=== PATIENT | female | born 1945 | race Caucasian/White ===

== ENCOUNTER → 2016-10-15 | Outpatient (CLI) | payer MEDICARE, MEDICAID ==
[2016-10-15 09:00] LABS: ALT 37 U/L (9-52); AST 35 U/L (14-36); Alkaline Phosphatase 45 U/L (38-126); Anion Gap 9 mmol/L; Blood Urea Nitrogen 16 mg/dL (7-17); Calcium 9.7 mg/dL (8.4-10.2); Carbon Dioxide 29 mmol/L (22-30); Chloride 95 mmol/L (98-107); Cholesterol 132 mg/dL (<200); Glucose 87 mg/dL (74-99); HDL Cholesterol 68 mg/dL (40-60); Non-African American GFR(MDRD) >60 (>60 ml/min/1.73 sqM); Potassium 3.9 mmol/L (3.5-5.1); Sodium 133 mmol/L (137-145); Total Bilirubin 0.7 mg/dL (0.2-1.3); Total Protein 7.1 g/dL (6.3-8.2)
== END | disposition home or self-care (01) ==
LOC: LABWHC1 08:18
PROVIDERS: ATTEND Internal Medicine Interventional Cardiology
DX: E78.2 Mixed hyperlipidemia (principal)
CPT/HCPCS: 36415; 80053; 80061

== ENCOUNTER → 2017-10-15 | Outpatient (CLI) | payer MEDICARE, MEDICAID ==
[2017-10-15 09:10] LABS: ALT 34 U/L (9-52); AST 38 U/L (14-36); Cholesterol 140 mg/dL (<200); Creatine Kinase 123 U/L (30-135); HDL Cholesterol 64 mg/dL (40-60); LDL Cholesterol,Calculated 65 mg/dL (0-99); Triglycerides 56 mg/dL (<150)
== END | disposition home or self-care (01) ==
LOC: LABWHC1 08:33
PROVIDERS: ATTEND Internal Medicine Interventional Cardiology
DX: E78.2 Mixed hyperlipidemia (principal)
CPT/HCPCS: 36415; 80061; 82550; 84450; 84460

== ENCOUNTER → 2017-12-23 | Outpatient (CLI) | payer MEDICAID, MEDICARE ==
--- NOTE | 2017-12-23 10:05 | BD ---
EXAMINATION TYPE: Axial Bone Density DATE OF EXAM: 12/23/2017 COMPARISON: Prior DEXA bone scan June 27, 2010 CLINICAL HISTORY: Postmenopausal female Height: 5 FT 3 1/4 IN Weight: 136 FRAX RISK QUESTIONS: History of Fracture in Adulthood: YES RISK FACTORS HISTORY OF: Family History of Osteoporosis: YES Active: YES Postmenopausal woman: TOTAL HYST AGE 57 Take estrogen and/or progesterone medications: TOOK FOR SEVERAL AROUND THE TIME OF HYST , NO LONGER T AKES MEDICATIONS: Additional Medications: BLOOD PRESSURE MEDS, CHOLESTEROL MEDS Additional History: EXAM MEASUREMENTS: Bone mineral densitometry was performed using the [employer] System. Bone mineral density as measured about the Lumbar spine is: ----- L1-L4(G/cm2): 1.031 T Score Values are as follows: ----- L2: -1.7 ----- L3: -1.3 ----- L4: -0.7 ----- L1-L4: -1.2 Bone mineral density has: DECREASED -8.6 % since study of: 2010 Bone mineral density about the R hip (g/cm2): 0.848 Bone mineral density about the L hip (g/cm2): 0.770 T Score values are as follows: -----R Neck: -1.4 -----L Neck: -1.9 -----R Total: -2.2 -----L Total: -2.5 Bone mineral density has: DECREASED -14.8 % since study of: 2010 IMPRESSION: Osteopenia (T Score between -2.5 and -1) in low back and both hips is now present. Bone density decre ased or diminished from prior. There remains slightly increased risk of fracture and the patient may be considered for treatment. Re-Screen 2-5 years. NOTE: T-SCORE=SD OF THE YOUNG ADULT MEAN.
== END | disposition home or self-care (01) ==
LOC: RADBDWWP 07:18
PROVIDERS: ATTEND Internal Medicine
DX: M85.88 Other specified disorders of bone density and structure, other site (principal)
CPT/HCPCS: 77080

== ENCOUNTER → 2018-01-07 | Outpatient (CLI) | payer MEDICARE, MEDICAID ==
--- NOTE | 2018-01-11 11:18 | MM ---
Reason for exam: screening (asymptomatic). Last mammogram was performed 7 years and 6 months ago. History: Patient is postmenopausal. Family history of breast cancer in maternal cousin. Took estrogen for 8 months. Physical Findings: A clinical breast exam by your physician is recommended on an annual basis and results should be correlated with mammographic findings. MG 3D Screening Mammo W/Cad Bilateral CC and MLO view(s) were taken. Prior study comparison: June 27, 2010, bilateral digital screening mammo w/CAD. July 02, 2008, bilateral digital screening mammogram. There are scattered fibroglandular densities. Posterior central asymmetric density on the right MLO view unchanged from 2011. Scattered secretory calcifications. No significant changes when compared with prior studies. ASSESSMENT: Negative, BI-RAD 1 RECOMMENDATION: Routine screening mammogram of both breasts in 1 year.
== END | disposition home or self-care (01) ==
LOC: RADMAMWWP 11:13
PROVIDERS: ATTEND Internal Medicine
DX: Z12.31 Encounter for screening mammogram for malignant neoplasm of breast (principal)
CPT/HCPCS: 77063; 77067

== ENCOUNTER 2018-01-21 11:58 | Day surgery (SDC) | payer MEDICAID, MEDICARE ==
[2018-01-20 10:09] VITALS: BMI 23.0
[~2018-01-21 11:58] MED LIST: LACTATED RINGERS 1,000 ML IV SCH
[2018-01-21 12:40] VITALS: RESP 16; TEMP 98.7
[2018-01-21] MEDS ORDERED: LIDOCAINE 1% 20 ML VIAL (10MG/ML) FOR IV START INTRADERMA ONE (12:40)
[2018-01-21] MEDS ORDERED: PROPOFOL 10 MG/ML 20 ML VIAL IV ONE (13:56)
--- NOTE | 2018-01-21 14:14 | P.PCN ---
Date of Procedure: 01/21/18 Procedure(s) Performed: BRIEF HISTORY: Patient is a 72-year-old pleasant white female scheduled for an elective colonoscopy as a part of screening for colorectal neoplasia. PROCEDURE PERFORMED: Colonoscopy. PREOPERATIVE DIAGNOSIS: Screening for colon cancer. IV sedation per Anesthesia. PROCEDURE: After informed consent was obtained, the patient, was brought into the endoscopy unit. IV sedation was administered by Anesthesia under continuous monitoring. Digital rectal examination was normal. Initially the Olympus CF- 160 flexible video colonoscope was then inserted in the rectum, gradually advanced into the cecum without any difficulty. Careful examination was performed as the scope was gradually being withdrawn. Ileocecal valve and the appendiceal orifice were visualized and appeared normal. Prep was excellent. Mucosa of the cecum, ascending colon, transverse colon, descending colon, sigmoid colon, and rectum appeared normal. Scattered diffuse diverticulosis seen. Retroflexion was performed in the rectum and no lesions were seen. The patient tolerated the procedure well. IMPRESSION: Normal-appearing colon from rectum to cecum with no evidence of colorectal neoplasia. Scattered diffuse diverticulosis. RECOMMENDATIONS: Findings of this examination were discussed with the patient as well as her family. She was advised to have a repeat screening colonoscopy in 10 years.
[2018-01-21 14:18] VITALS: BP 129/66; PULSE 67
== END 2018-01-21 14:59 | disposition home or self-care (01) ==
LOC: ORWHC2ENDO 11:58
PROVIDERS: ATTEND Internal Medicine Gastroenterology
DX: Z12.11 Encounter for screening for malignant neoplasm of colon (principal); K57.30 Diverticulosis of large intestine without perforation or abscess without bleeding; I10 Essential (primary) hypertension; E78.5 Hyperlipidemia, unspecified; Z79.899 Other long term (current) drug therapy; Z91.013 Allergy to seafood
CPT/HCPCS: J2704; G0121

== ENCOUNTER → 2018-01-27 | Outpatient (CLI) | payer MEDICARE, MEDICAID ==
[2018-01-27 10:10] LABS: Basophils % (A) 0 %; Eosinophils # (A) 0.2 k/uL (0-0.7); Eosinophils % (A) 3 %; HCT 36.5 % (34.0-46.0); HGB 12.5 gm/dL (11.4-16.0); Lymphocytes # (A) 1.4 k/uL (1.0-4.8); Lymphocytes % (A) 26 %; MCH 33.5 pg (25.0-35.0); MCHC 34.2 g/dL (31.0-37.0); MCV 97.7 fL (80.0-100.0); Mean Platelet Volume 6.8; Monocytes # (A) 0.4 k/uL (0-1.0); Monocytes % (A) 8 %; Neutrophils # (A) 3.2 k/uL (1.3-7.7); Neutrophils % (A) 60 %; Platelet Count 211 k/uL (150-450); RBC 3.73 m/uL (3.80-5.40); WBC 5.2 k/uL (3.8-10.6)
[2018-01-27 16:02] LABS: ALT 30 U/L (8-44); AST 40 U/L (13-35); Albumin/Globulin Ratio 2.14 (1.20-2.10); Alkaline Phosphatase 66 U/L (41-126); Calcium 9.4 mg/dL (8.7-10.3); Carbon Dioxide 30.8 mmol/L (21.6-31.8); Chloride 93 mmol/L (96-109); Cholesterol 146 mg/dL (0-200); Globulin 2.1 g/dL (2.1-3.7); Glucose 79 mg/dL (70-110); Potassium 3.9 mmol/L (3.5-5.5); Sodium 131 mmol/L (135-145); Total Bilirubin 0.5 mg/dL (0.2-1.2); Total Protein 6.6 g/dL (6.2-8.2); Triglycerides <50.0 mg/dL (0.0-149.0); VLDL Calculation 9.98 mg/dL (5.00-40.00)
[2018-01-27 17:25] LABS: Hemoglobin A1C 5.3 % (4.0-6.0)
== END ==
LOC: LABWHC1 08:29
PROVIDERS: ATTEND Internal Medicine
DX: Z00.01 Encounter for general adult medical examination with abnormal findings (principal)
CPT/HCPCS: 36415; 80053; 80061; 82306; 83036; 84439; 84443; 85025

== ENCOUNTER → 2018-04-28 | Outpatient (CLI) | payer MEDICAID, MEDICARE ==
--- NOTE | 2018-04-28 12:15 | CONS ---
CONSULTATION DATE OF SERVICE: 04/28/2018. This 72-year-old lady has been evaluated in the sleep center for possible obstructive sleep apnea-hypopnea syndrome. HISTORY OF PRESENT ILLNESS/SLEEP-WAKE EVALUATION: Patient usual sleep schedule basically 7 days a week from around 7:30 to 8:15 p.m. until around 4:35 a.m. Usually no problems with falling asleep. No TV in bedroom. Patient sleeps in different position with snoring, awakenings from sleep 3 times with nocturia, dry mouth, sweating, positive history of symptoms of restless legs during the night. In the morning, patient wakes up tired and has episodes of irritability. [place] Sleepiness Scale is 7. She drinks up to 6 caffeinated beverages during the day. Does not take any naps usually. PAST MEDICAL HISTORY: Positive for hypertension, hyperlipidemia. PAST SURGICAL HISTORY: Tonsillectomy, adenoidectomy, total hysterectomy surgery and bladder suspension. MEDICATIONS: Losartan, simvastatin, fenofibrate. SOCIAL HISTORY: Negative for smoking. Alcohol consumption occasional. FAMILY HISTORY: Heart problems, cancer. REVIEW OF SYSTEMS: Awakenings from sleep, sometimes tiredness, sleepiness during the day. PHYSICAL EXAM: During physical exam, lady without distress. VITAL SIGNS: BP 147/77, HR 56, RR 16, height 5 feet 4 inches, weight 133 pounds, body mass index 22.8, temperature 98.2, oxygen saturation at room air 97%. HEENT: PERRLA, EOMI. Oropharynx low position of soft palate, Mallampati 3-4. Neck 12 inches in circumference. NECK: Supple, no JVD. Thyroid is not palpable. LUNGS: Clear to percussion and to auscultation. Good air exchange. No wheezing or rhonchi. HEART: S1, S2 regular. No murmurs, gallops, or rubs. ABDOMEN: Soft and nontender. Bowel sounds are present. No organomegaly appreciated. EXTREMITIES: No clubbing or cyanosis. CLINIC LEAD: Awake, alert, and oriented X3. Cranial nerves 2 to 7 intact. There is no fasciculation or atrophy. noted. No focal deficits observed. IMPRESSION: 1. Snoring. Low position of soft palate. Awakenings from sleep with dry mouth and nocturia. Possible obstructive sleep apnea-hypopnea syndrome. 2. Hypertension. 3. Hyperlipidemia. 4. Status post tonsillectomy and adenoidectomy. 5. Status post total hysterectomy. 6. Status post bladder suspension. PLAN: 1. Polysomnography for evaluation of patient's breathing during sleep. 2. CPAP/BiPAP titration if sleep study confirms obstructive sleep apnea-hypopnea syndrome. 3. Preferable position during sleep on the side. 4. No driving if patient feels any sleepiness. 5. I will see patient for follow up visit to explain results of testing and following plan. Thank you very much for referring this patient for consultation. Sincerely, Karthik Andesron MD, PhD, FAASM Diplomat of [place] [employer] [place] [employer] Business Excellence Leader of [facility] [place] MMODL / IJN: [id number] /
== END | disposition home or self-care (01) ==
LOC: SLEEP 10:08
PROVIDERS: ATTEND Internal Medicine
DX: R06.83 Snoring (principal); R35.1 Nocturia; M27.8 Other specified diseases of jaws; R68.2 Dry mouth, unspecified; R61 Generalized hyperhidrosis; G25.81 Restless legs syndrome; I10 Essential (primary) hypertension; E78.5 Hyperlipidemia, unspecified; Z90.89 Acquired absence of other organs; Z90.710 Acquired absence of both cervix and uterus; Z98.890 Other specified postprocedural states; Z79.899 Other long term (current) drug therapy
CPT/HCPCS: 99211

== ENCOUNTER → 2019-03-10 | Outpatient (CLI) | payer MEDICARE, MEDICAID ==
--- NOTE | 2019-03-10 15:17 | CT ---
EXAMINATION TYPE: CT sinus wo con DATE OF EXAM: 03/10/2019 COMPARISON: Facial CT July 04, 2012 HISTORY: Chronic sinusitis per order. Facial pain and headaches. CT DLP: 569 mGycm. Automated Exposure Control for Dose Reduction was Utilized. TECHNIQUE: CT scan of the sinuses is performed without contrast, axial images are obtained, coronal r eformatted images are also reviewed. FINDINGS: Minimal mucosal thickening throughout the bilateral maxillary sinuses greater on the left. Moderate to severe mucosal thickening involving the ethmoid sinuses bilaterally with some patchy opac ification most prominently anterior superior aspect. Mild mucosal thickening involving bilateral fron rosanna sinuses with patchy fluid on the right. Mild mucosal thickening anterior central aspect right sph enoid sinus. The ostiomeatal complex is blocked bilaterally on the coronal images. Nasal septum is de viated to left of midline similar to prior. Visualized portion of mastoid air cells show no abnormal opacification. The globes are intact bilate rally. Visualized brain parenchyma shows diffuse cerebral atrophy and chronic small vessel ischemic change with calcified plaque distal internal carotid arteries bilaterally noted. IMPRESSION: Acute on chronic paranasal sinus disease as detailed above. Findings progressed from 201 3 study.
== END | disposition home or self-care (01) ==
LOC: RADCTMAIN 13:59
PROVIDERS: ATTEND Otolaryngology
DX: J32.9 Chronic sinusitis, unspecified (principal)
CPT/HCPCS: 70486

== ENCOUNTER → 2019-04-06 | Outpatient (CLI) | payer MEDICARE, MEDICAID ==
--- NOTE | 2019-04-06 17:29 | PN ---
PROGRESS NOTE DATE OF SERVICE: 04/06/2019 This patient is a 73-year-old lady who has been followed in Sleep Center for treatment of obstructive sleep apnea-hypopnea syndrome. I saw this patient in April of 2018 for possible obstructive sleep apnea-hypopnea syndrome. At that time it was recommended to proceed with a sleep study, but for different issues related to insurance the patient did not have a sleep study at that time. At present she continues to have some problems with sleep. She wakes up from sleep, snores and has awakenings 3 times from sleep with nocturia, dry mouth, sweating, sometimes has symptoms of restless legs. She drinks several cups of coffee a day. [place] Sleepiness Scale is 3. MEDICATIONS: Losartan, simvastatin, fenofibrate. PHYSICAL EXAMINATION: GENERAL: A pleasant patient in no distress. VITAL SIGNS: BP 155/82, HR 54, RR 16, height 5 feet 4 inches, weight 139 pounds, BMI 23.8, temperature 97.2, oxygen saturation at room air 98%. HEENT: PERRLA, EOMI. Evaluation of oropharynx showed tongue protrudes midline. Low position of soft palate. Mallampati III to IV. NECK: Supple. No JVD. Thyroid is not palpable. LUNGS: Clear to percussion and to auscultation. Good air exchange. No wheezing or rhonchi. HEART: S1, S2 regular. No murmurs, gallops or rubs. ABDOMEN: Soft and nontender. Bowel sounds are present. No organomegaly. EXTREMITIES: No clubbing or cyanosis. CARPENTER'S HELPER: Awake, alert, and oriented X3. Cranial nerves 2 to 7 intact. There is no fasciculation or atrophy. noted. No focal deficits observed. IMPRESSION: 1. Snoring, awakenings from sleep with nocturia and dry mouth, low position of soft palate, Mallampati III to IV; possible obstructive sleep apnea-hypopnea syndrome. 2. Hypertension. 3. Hyperlipidemia. 4. Status post tonsillectomy and adenoidectomy. 5. Status post total hysterectomy. 6. Status post bladder suspension. PLAN: 1. Polysomnography for evaluation of patient's breathing during sleep. 2. CPAP titration if sleep study is positive for obstructive sleep apnea-hypopnea syndrome. 3. Sleep hygiene with regular time in bed for at least 7-1/2 to 8 hours. 4. No driving if feeling any sleepiness. Thank you very much for allowing me to participate in the management of your patient. Sincerely, Karthik Anderson MD, PhD, FAASM Diplomat of [place] [employer] [place] [employer] Broadcast Transmitter Operator of [facility] [place] MMCARMINA / KRISTA: [id number] /
== END | disposition home or self-care (01) ==
LOC: SLEEP 16:06
PROVIDERS: ATTEND Internal Medicine
DX: G47.33 Obstructive sleep apnea (adult) (pediatric) (principal); I10 Essential (primary) hypertension; E78.5 Hyperlipidemia, unspecified; Z90.89 Acquired absence of other organs; Z90.710 Acquired absence of both cervix and uterus; Z98.890 Other specified postprocedural states; Z79.899 Other long term (current) drug therapy

== ENCOUNTER 2019-09-09 21:16 | Emergency (ER) | payer OTHER, MEDICARE, MEDICAID ==
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
[2019-09-09 22:25] LABS: Basophils % (A) 0 %; Eosinophils # (A) 0.1 k/uL (0-0.7); Eosinophils % (A) 1 %; HCT 37.8 % (34.0-46.0); HGB 12.7 gm/dL (11.4-16.0); Lymphocytes # (A) 1.6 k/uL (1.0-4.8); Lymphocytes % (A) 17 %; MCHC 33.5 g/dL (31.0-37.0); MCV 95.4 fL (80.0-100.0); Mean Platelet Volume 6.9; Monocytes # (A) 0.5 k/uL (0-1.0); Monocytes % (A) 5 %; Neutrophils # (A) 7.6 k/uL (1.3-7.7); Neutrophils % (A) 76 %; Platelet Count 231 k/uL (150-450); RBC 3.96 m/uL (3.80-5.40); RDW 11.7 % (11.5-15.5)
[2019-09-09 22:35] LABS: Albumin 4.5 g/dL (3.5-5.0); Calcium 9.4 mg/dL (8.4-10.2); Potassium 3.4 mmol/L (3.5-5.1); Total Bilirubin 0.5 mg/dL (0.2-1.3)
[2019-09-09 23:01] LABS: Appearance,Urine Cloudy (Clear); Bacteria,Urine Many /hpf; Bilirubin,Urine Negative (Negative); Blood,Urine Small (Negative); Color,Urine Yellow; Glucose,Urine (UA) Negative (Negative); Ketones,Urine Negative (Negative); Leukocyte Esterase,Urine Large (Negative); Mucus,Urine Rare /hpf; Nitrite,Urine Positive (Negative); Protein,Urine Negative (Negative); RBC,Urine 2 /hpf (0-5); Specific Gravity,Urine 1.013 (1.001-1.035); Squamous Epithelial Cell,Urine 3 /hpf (0-4); Urobilinogen,Urine <2.0 mg/dL (<2.0); WBC,Urine 68 /hpf (0-5)
[2019-09-09 23:14] LABS: INR 0.9 (<1.2); Partial Thromboplastin Time 24.9 sec (22.0-30.0); Prothrombin Time 9.8 sec (9.0-12.0)
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
[2019-09-09 23:57] VITALS: BP 143/68; PULSE 59; RESP 17; TEMP 98.7
[2019-09-10] MEDS ORDERED: CEPHALEXIN 500 MG CAP PO STA (00:01)
== END 2019-09-10 00:34 | disposition home or self-care (01) ==
LOC: EC 21:16
DX: N39.0 Urinary tract infection, site not specified (principal); S00.81XA Abrasion of other part of head, initial encounter; R10.811 Right upper quadrant abdominal tenderness; E87.1 Hypo-osmolality and hyponatremia; R82.998 Other abnormal findings in urine; E78.5 Hyperlipidemia, unspecified; I10 Essential (primary) hypertension; M19.90 Unspecified osteoarthritis, unspecified site; Z79.899 Other long term (current) drug therapy; Z87.891 Personal history of nicotine dependence; Z91.013 Allergy to seafood; V49.40XA Driver injured in collision with unspecified motor vehicles in traffic accident, initial encounter; Y92.410 Unspecified street and highway as the place of occurrence of the external cause; Y93.89 Activity, other specified
CPT/HCPCS: 36415; 93005; 86900; 86901; 80053; 84484; 85025; 85610; 85730; 86850; 81001; 72125; 70450; 71260; 74177; 99284; Q9967

== ENCOUNTER → 2021-01-02 | Outpatient (CLI) | payer MEDICARE, MEDICAID ==
[2021-01-02 19:33] LABS: ALT 16 U/L (8-44); AST 27 U/L (13-35); African American GFR (CKD) 101.1 (60.0-200.0); Albumin 4.5 g/dL (3.8-4.9); Albumin/Globulin Ratio 1.91 (1.60-3.17); Alkaline Phosphatase 61 U/L (41-126); BUN/Creat Ratio 20.22 Ratio (12.00-20.00); Blood Urea Nitrogen 12.7 mg/dL (9.0-27.0); Calcium 9.8 mg/dL (8.7-10.3); Chloride 95 mmol/L (96-109); Chol/HDL Ratio 2.81 Ratio; Globulin 2.4 g/dL (1.6-3.3); Glucose 90 mg/dL (70-110); LDL Cholesterol,Calculated 95.3 mg/dL (0.0-131.0); Non-African American GFR(CKD) 87.2 (60.0-200.0); Potassium 3.9 mmol/L (3.5-5.5); Sodium 136 mmol/L (135-145); Total Protein 6.9 g/dL (6.2-8.2); VLDL Calculation 19.96 mg/dL (5.00-40.00)
== END | disposition home or self-care (01) ==
LOC: LABWHC1 08:29
PROVIDERS: ATTEND Internal Medicine Interventional Cardiology
DX: E78.2 Mixed hyperlipidemia (principal)
CPT/HCPCS: 36415; 80053; 80061

== ENCOUNTER 2021-03-14 17:51 | Inpatient (IN) | payer MEDICARE, MEDICAID ==
[2021-03-14] MEDS ORDERED: HYDROmorphone 0.5 MG/0.5 ML SYRINGE IVP STA (18:05)
[2021-03-14] MEDS ORDERED: DIPH,PERTUS(ACELL)TETVAC-LF 0.5 ML VIAL IM ONE (18:06)
[2021-03-14 18:23] LABS: Basophils # (A) 0.1 k/uL (0-0.2); Basophils % (A) 0 %; Eosinophils # (A) 0.1 k/uL (0-0.7); Eosinophils % (A) 1 %; HGB 12.5 gm/dL (11.4-16.0); Lymphocytes # (A) 1.2 k/uL (1.0-4.8); Lymphocytes % (A) 11 %; MCH 34.8 pg (25.0-35.0); MCHC 35.6 g/dL (31.0-37.0); MCV 97.8 fL (80.0-100.0); Mean Platelet Volume 7.3; Monocytes # (A) 0.5 k/uL (0-1.0); Monocytes % (A) 4 %; Neutrophils # (A) 9.5 k/uL (1.3-7.7); Neutrophils % (A) 83 %; Platelet Count 215 k/uL (150-450); RBC 3.58 m/uL (3.80-5.40); RDW 11.3 % (11.5-15.5); WBC 11.4 k/uL (3.8-10.6)
[2021-03-14 18:32] LABS: ALT 15 U/L (4-34); AST 35 U/L (14-36); African American GFR (CKD) >90 (>60 ml/min/1.73 sqM); Albumin 3.9 g/dL (3.5-5.0); Alkaline Phosphatase 55 U/L (38-126); Anion Gap 9 mmol/L; Blood Urea Nitrogen 12 mg/dL (7-17); Calcium 8.5 mg/dL (8.4-10.2); Carbon Dioxide 25 mmol/L (22-30); Chloride 90 mmol/L (98-107); Glucose 105 mg/dL (74-99); Non-African American GFR(CKD) >90 (>60 ml/min/1.73 sqM); Potassium 3.5 mmol/L (3.5-5.1); Sodium 124 mmol/L (137-145); Total Bilirubin 0.9 mg/dL (0.2-1.3); Total Protein 6.9 g/dL (6.3-8.2)
--- NOTE | 2021-03-14 19:08 | CT ---
EXAMINATION TYPE: CT brain cspine wo con CT DLP: 1220.9 mGycm, Automated exposure control for dose reduction was used. DATE OF EXAM: 03/14/2021 6:52 PM COMPARISON: CT head 09/09/2019. CLINICAL INDICATION:Female, 75 years old with history of trauma; Fall with laceration to head. TECHNIQUE: Brain: Multiple axial CT images of the brain were obtained without IV contrast. Cspine: Axial CT images from the skull base to the inferior aspect of T2 we obtained without intraven ous contrast. Coronal and sagittal reformatted images were also reviewed. FINDINGS: Brain: Extra-axial spaces: No abnormal extra-axial fluid collections. Ventricular system: Within normal limits Cerebral parenchyma: No acute intraparenchymal hemorrhage or mass effect. The adams-white junction is well differentiated. Scattered hypoattenuating areas are seen within the white matter. Cerebellum: Unremarkable. Mass effect: No evidence of midline shift. Intracranial vasculature: Atherosclerotic calcifications of the intracranial vessels. Soft tissues: Normal. Calvarium/osseous structures: No depressed skull fracture. Paranasal sinuses and mastoid air cells: Mild mucosal thickening of the right frontal sinus. Visualized orbits: Orbital contents are intact. Cervical spine: Fracture: None. Osseous structures: Multilevel degenerative disc disease changes with endplate spurring and disc oste ophyte complex's. Vertebral alignment: There is grade 1 anterolisthesis of C4 on C5. Spinal canal/Neural Foramina: No e vidence of significant spinal canal narrowing. No evidence of significant neural foramina narrowing. Neck soft tissues: Prevertebral soft tissues are within normal limits. Other: The airway is patent. The lung apices are clear. IMPRESSION: 1. No acute intracranial process. 2. Nonspecific white matter changes, likely secondary to chronic small vessel ischemic disease. 3. No evidence of cervical spine fracture. 4. Mild multilevel degenerative disc disease.
--- NOTE | 2021-03-14 19:11 | XR ---
EXAMINATION TYPE: XR Hip LT and AP Pelvis DATE OF EXAM: 03/14/2021 6:57 PM INDICATION: Patient age:Female; 75 years old; Reason for study: Trauma; COMPARISON: None. TECHNIQUE: The left hip was examined in the frontal and lateral projections. FINDINGS: Acute fracture through the proximal left femur intertrochanteric region. There is varus def ormity. Possible subtrochanteric extension is seen on one view. Soft tissues are grossly unremarkable . No radiopaque foreign body. IMPRESSION: Acute fracture through the intertrochanteric region of the left femur. Subtrochanteric extension sugg jerome on single view.
--- NOTE | 2021-03-14 19:12 | XR ---
EXAMINATION TYPE: XR chest 1V portable DATE OF EXAM: 03/14/2021 6:57 PM COMPARISON:None TECHNIQUE: Frontal view of the chest. CLINICAL INDICATION:Female, 75 years old with history of trauma; FINDINGS: Lungs/Pleura: There is no evidence of pleural effusion, focal consolidation, or pneumothorax. Pulmonary vascularity: Unremarkable. Heart/mediastinum: Cardiomediastinal silhouette is unremarkable. Musculoskeletal:No acute osseous pathology. IMPRESSION: No acute cardiopulmonary disease/process.
[2021-03-14] MEDS ORDERED: HYDROmorphone 1 MG/ML 1 ML SYRINGE IVP STA (19:18)
--- NOTE | 2021-03-14 19:19 | XR ---
EXAMINATION TYPE: XR shoulder complete LT DATE OF EXAM: 03/14/2021 6:57 PM INDICATION: Patient age:Female; 75 years old; Reason for study: trauma; COMPARISON: Chest radiograph same day TECHNIQUE: The left shoulder was examined in AP, internally rotated and axillary projections. FINDINGS: Fracture through the distal left clavicle with at least 3 fragments felt to be present. There is mild displacement IMPRESSION: Acute left distal clavicle fracture.
[2021-03-14] MEDS ORDERED: SODIUM CHLORIDE 0.9% 500 ML 500 ML IV ONE (19:33)
[2021-03-14 19:34] LABS: Partial Thromboplastin Time 22.9 sec (22.0-30.0)
[2021-03-14] MEDS: SODIUM CHLORIDE 0.9% 1,000 ML IV SCH (19:40)
[2021-03-14] MEDS ORDERED: ONDANSETRON 4 MG/2 ML VIAL IVP PRN (19:48)
[2021-03-14] MEDS ORDERED: HYDROmorphone 0.5 MG/0.5 ML SYRINGE IVP PRN (19:48)
[2021-03-14] MEDS ORDERED: NALOXONE 0.4 MG/ML 1 ML VIAL IV PRN (19:48)
--- NOTE | 2021-03-14 19:56 | ED ---
General Adult HPI - General Chief complaint: Fall Stated complaint: fall Time Seen by Provider: 03/14/21 17:59 Source: patient, EMS, RN notes reviewed, old records reviewed Mode of arrival: EMS Limitations: no limitations - History of Present Illness Initial comments: 75-year-old female presenting status post fall. Patient was in her kitchen making dinner, she tripped and fell onto her left side. There was head injury, injury to the left shoulder and left hip. She was transported by EMS, given fentanyl during transport. Her main complaint is left hip pain. She was unable to ambulate on scene. No chest or abdominal pain. No loss consciousness. No anticoagulation. - Related Data Home Medications Medication Instructions Recorded Confirmed Escitalopram [Lexapro] 10 mg PO HS 03/14/21 03/14/21 LORazepam [Ativan] 0.5 mg PO BID PRN 03/14/21 03/14/21 Losartan/Hydrochlorothiazide 1 tab PO DAILY 03/14/21 03/14/21 [Losartan-Hctz 100-25 mg Tab] Pravastatin Sodium [Pravachol] 20 mg PO DAILY 03/14/21 03/14/21 Allergies Allergy/AdvReac Type Severity Reaction Status Date / Time shellfish derived [Shrimp] Allergy Dyspnea Verified 09/09/19 21:25 Review of Systems ROS Statement: Those systems with pertinent positive or pertinent negative responses have been documented in the HPI. ROS Other: All systems not noted in ROS Statement are negative. Past Medical History Past Medical History: Hyperlipidemia, Hypertension, Osteoarthritis (OA) Additional Past Medical History / Comment(s): VASCULAR HEADACHES , VARICOSE VEINS. History of Any Multi-Drug Resistant Organisms: None Reported Past Surgical History: Adenoidectomy, Bladder Surgery, Bowel Resection, Hysterectomy, Tonsillectomy, Tubal Ligation Additional Past Surgical History / Comment(s): BSO, [facility]OD NEUROMA LEFT FOOT, CYSTOCELE AND RECTOCELE REPAIR, Past Anesthesia/Blood Transfusion Reactions: No Reported Reaction Additional Past Anesthesia/Blood Transfusion Reaction / Comment(s): BLOOD TRANSFUSION WITH NO PROBLEM Past Psychological History: No Psychological Hx Reported Smoking Status: Former smoker, Never smoker Past Alcohol Use History: Rare Past Drug Use History: None Reported - Past Family History Mother Family Medical History: No Reported History General Exam General appearance: alert, in no apparent distress Head exam: Present: normocephalic, other (3 cm laceration to the left parietal scalp) Eye exam: Present: normal appearance, PERRL ENT exam: Present: normal exam Neck exam: Present: normal inspection, other (C-collar placed by EMS). Absent: tenderness Respiratory exam: Present: normal lung sounds bilaterally, respiratory distress Cardiovascular Exam: Present: regular rate, normal rhythm GI/Abdominal exam: Present: soft. Absent: distended, tenderness, guarding Extremities exam: Present: other (Decreased range of motion left hip, shortening of the left lower extremity, distal pulses are intact. Additionally there is some tenderness over the anterior left shoulder, no gross deformity.) Neurological exam: Present: alert, oriented X3, CN II-XII intact. Absent: motor sensory deficit Psychiatric exam: Present: normal affect, normal mood Skin exam: Present: warm, dry Course Vital Signs 03/14/21 03/14/21 17:53 19:34 Temperature 98.1 F Pulse Rate 60 58 L Respiratory 18 18 Rate Blood Pressure 158/73 100/47 O2 Sat by Pulse 95 95 Oximetry EKG Findings - EKG Comments: EKG Findings:: EKG: Normal sinus rhythm no ST segment elevation, rate of 62, [place] interval 166, QRS duration 84, QTC 351 Procedures - Laceration Laceration #1 Consent Obtained: verbal consent Indication: laceration Site: scalp Size (cm): 3 Description: linear Depth: simple, single layer Pre-repair: wound explored, deep structures intact Type of Sutures: other (John) Number of Sutures: 3 Technique: simple, interrupted Patient Tolerated Procedure: well Medical Decision Making - Medical Decision Making 75-year-old female presenting status post mechanical fall with left shoulder pain, left hip pain, and head injury. Patient did have a 3 similar laceration on the left parietal scalp which was repaired with john in the emergency department. Head CT is negative for intracranial hemorrhage or mass effect, CT cervical spine negative for fracture subluxation. X-ray of the left shoulder shows a minimally displaced distal clavicle fracture. X-ray of the pelvis and hip shows a left intertrochanteric fracture. I did discuss case with Segundo betancourt for advanced orthopedics. Patient will be admitted to orthopedics with medicine on consult for preoperative clearance. - Lab Data Result diagrams: 03/14/21 18:17 03/14/21 18:17 Lab Results 03/14/21 03/14/21 03/14/21 Range/Units 18:14 18:17 18:17 WBC 11.4 H (3.8-10.6) k/uL RBC 3.58 L (3.80-5.40) m/uL Hgb 12.5 (11.4-16.0) gm/dL Hct 35.0 (34.0-46.0) % MCV 97.8 (80.0-100.0) fL MCH 34.8 (25.0-35.0) pg MCHC 35.6 (31.0-37.0) g/dL RDW 11.3 L (11.5-15.5) % Plt Count 215 (150-450) k/uL MPV 7.3 Neutrophils % 83 % Lymphocytes % 11 % Monocytes % 4 % Eosinophils % 1 % Basophils % 0 % Neutrophils # 9.5 H (1.3-7.7) k/uL Lymphocytes # 1.2 (1.0-4.8) k/uL Monocytes # 0.5 (0-1.0) k/uL Eosinophils # 0.1 (0-0.7) k/uL Basophils # 0.1 (0-0.2) k/uL PT (9.0-12.0) sec INR (<1.2) APTT (22.0-30.0) sec Sodium 124 L (137-145) mmol/L Potassium 3.5 (3.5-5.1) mmol/L Chloride 90 L (98-107) mmol/L Carbon Dioxide 25 (22-30) mmol/L Anion Gap 9 mmol/L BUN 12 (7-17) mg/dL Creatinine 0.54 (0.52-1.04) mg/dL Est GFR (CKD-EPI)AfAm >90 (>60 ml/min/1.73 sqM) Est GFR (CKD-EPI)NonAf >90 (>60 ml/min/1.73 sqM) Glucose 105 H (74-99) mg/dL Calcium 8.5 (8.4-10.2) mg/dL Total Bilirubin 0.9 (0.2-1.3) mg/dL AST 35 (14-36) U/L ALT 15 (4-34) U/L Alkaline Phosphatase 55 (38-126) U/L Total Protein 6.9 (6.3-8.2) g/dL Albumin 3.9 (3.5-5.0) g/dL Blood Type A Positive Blood Type Recheck A Pos Bld Type Recheck Status No Antibody Screen NEGATIVE Spec Expiration Date 03/17/2021231303/14/21 Range/Units 19:02 WBC (3.8-10.6) k/uL RBC (3.80-5.40) m/uL Hgb (11.4-16.0) gm/dL Hct (34.0-46.0) % MCV (80.0-100.0) fL MCH (25.0-35.0) pg MCHC (31.0-37.0) g/dL RDW (11.5-15.5) % Plt Count (150-450) k/uL MPV Neutrophils % % Lymphocytes % % Monocytes % % Eosinophils % % Basophils % % Neutrophils # (1.3-7.7) k/uL Lymphocytes # (1.0-4.8) k/uL Monocytes # (0-1.0) k/uL Eosinophils # (0-0.7) k/uL Basophils # (0-0.2) k/uL PT 11.0 (9.0-12.0) sec INR 1.0 (<1.2) APTT 22.9 (22.0-30.0) sec Sodium (137-145) mmol/L Potassium (3.5-5.1) mmol/L Chloride (98-107) mmol/L Carbon Dioxide (22-30) mmol/L Anion Gap mmol/L BUN (7-17) mg/dL Creatinine (0.52-1.04) mg/dL Est GFR (CKD-EPI)AfAm (>60 ml/min/1.73 sqM) Est GFR (CKD-EPI)NonAf (>60 ml/min/1.73 sqM) Glucose (74-99) mg/dL Calcium (8.4-10.2) mg/dL Total Bilirubin (0.2-1.3) mg/dL AST (14-36) U/L ALT (4-34) U/L Alkaline Phosphatase (38-126) U/L Total Protein (6.3-8.2) g/dL Albumin (3.5-5.0) g/dL Blood Type Blood Type Recheck Bld Type Recheck Status Antibody Screen Spec Expiration Date Disposition Clinical Impression: Fall, Closed left clavicular fracture, Intertrochanteric fracture of left femur, Laceration of scalp Disposition: ADMITTED IP TO THIS [facility] Condition: Stable Is patient prescribed a controlled substance at d/c from ED?: No Referrals: None,Stated [Primary Care Provider] - 1-2 days Decision to Admit Reason: Admit from EC Decision Date: 03/14/21 Decision Time: 19:56
[2021-03-14] MEDS: HYDROmorphone 1 MG/ML 1 ML SYRINGE IVP PRN (22:26)
[2021-03-14] MEDS ORDERED: ACETAMINOPHEN TAB 500 MG TAB PO PRN (23:40)
[2021-03-14] MEDS ORDERED: traMADol 50 MG TAB PO PRN (23:41)
--- NOTE | 2021-03-15 00:13 | P.CONS ---
History of Present Illness - Reason for Consult Consult date: 03/14/21 - History of Present Illness The patient is a 75-year-old female with a PMH of hypertension, and hyperlipidemia who presented to the emergency room after a fall at home. The patient reports that she was in her kitchen earlier today cooking dinner when she turned to grab something from a [employer] and lost her balance and fell to the ground hitting her head, left shoulder and hip. She denied experiencing chest discomfort, shortness of breath, palpitations, dizziness, or loss of consciousness. She lives at home with her who she immediately called out for who activated EMS. She was unable to ambulate following her fall. At the time of interview, she reported 5 out of 10 left hip pain along with mild left shoulder pain. In the emergency room, a head/cervical spine CT revealed chronic small vessel ischemic disease but otherwise unremarkable EKG showing normal sinus rhythm at 62 bpm but otherwise unremarkable. Chest x-ray was unremarkable with left shoulder x-ray positive for an acute left distal cla vicular fracture. Left hip x-ray revealed an acute fracture of the intertrochanteric region of the left femur. evaluation was remarkable for leukocytosis of 11.4, sodium 124, chloride 90, and glucose 105. Review of systems: Pertinent positives and negatives as discussed in HPI, a complete review of systems was performed and all other systems are negative. Physical examination: General: non toxic, no distress, appears at stated age, normal weight Derm: no unusual rashes/lesions no unusual ecchymoses, warm, dry Head: atraumatic, normocephalic, symmetric Eyes: EOMI, no lid lag, anicteric sclera, pupils equal round reactive to light ENT: Nose and ears atraumatic, no thrush, no pharyngeal erythema Neck: No thyromegaly, no cervical lymphadenopathy, trachea midline, supple Mouth: no lip lesion, mucus membranes moist Cardiovascular: S1S2 reg, no murmur, positive posterior tibial pulse bilateral, no edema, capillary refill less than 2 seconds Lungs: CTA bilateral, no rhonchi, no rales , no accessory muscle use Abdominal: soft, nontender to palpation, no guarding, no appreciable orga nomegaly, normal bowel sounds Ext: no gross muscle atrophy, muscle strength 5 out of 5 in all 4 extremities grossly except left lower extremity due to pain, left hip pain with any passive range of motion, distal left lower extremity strength 5 out of 5 no contractures Neuro: CN II-XI grossly intact, light touch intact all 4 extremities, finger to nose within normal limits, Psych: Alert, oriented, appropriate affect Assessment/plan Preoperative evaluation -METS > 4 -RCRI score: 0; Hu Score 0.2% -The patient reports excellent exercise tolerance as she reports being able to climb several flights of stairs without having to stop. Denied exertional chest discomfort or dyspnea. Denied experiencing palpitations. Denied history of [place] or CHF. -The patient's Sodium is currently 124 which is a relative contraindication for surgery. The hyponatremia may be secondary to SiADH from pain and home diuretic use -Continue with IVFs and monitor BMP -The patient should not undergo non-emergent surgeries until Na > 130 -C/w IVFs -Monitor BMP -Hold off on patient's home diuretic L hip and clavicular fractures -Management including pain control as per the surgery service Chronic conditions: HTN, HLD -Hold off on home diuretic use -C/w statin We appreciate this opportunity to be involved in this patient's care. We will follow the patient with you. For any further questions, please not hesitate to contact the [facility] emergency department inpatient team. Past Medical History Past Medical History: Hyperlipidemia, Hypertension, Osteoarthritis (OA) Additional Past Medical History / Comment(s): VASCULAR HEADACHES , VARICOSE VEINS. History of Any Multi-Drug Resistant Organisms: None Reported Past Surgical History: Adenoidectomy, Bladder Surgery, Bowel Resection, Hysterectomy, Tonsillectomy, Tubal Ligation Additional Past Surgical History / Comment(s): BSO, [place]OD NEUROMA LEFT FOOT, CYSTOCELE AND RECTOCELE REPAIR, Past Anesthesia/Blood Transfusion Reactions: No Reported Reaction Additional Past Anesthesia/Blood Transfusion Reaction / Comm: BLOOD TRANSFUSION WITH NO PROBLEM Past Psychological History: No Psychological Hx Reported Smoking Status: Former smoker, Never smoker Past Alcohol Use History: Rare Past Drug Use History: None Reported - Past Family History Mother Family Medical History: No Reported History Medications and Allergies Home Medications Medication Instructions Recorded Confirmed Type Escitalopram [Lexapro] 10 mg PO HS 03/14/21 03/14/21 History LORazepam [Ativan] 0.5 mg PO BID PRN 03/14/21 03/14/21 History Losartan/Hydrochlorothiazide 1 tab PO DAILY 03/14/21 03/14/21 History [Losartan-Hctz 100-25 mg Tab] Pravastatin Sodium [Pravachol] 20 mg PO DAILY 03/14/21 03/14/21 History Allergies Allergy/AdvReac Type Severity Reaction Status Date / Time shellfish derived [Shrimp] Allergy Dyspnea Verified 09/09/19 21:25 Physical Exam Vitals: Vital Signs Temp Pulse Resp BP Pulse Ox 03/14/21 19:34 58 L 18 100/47 95 03/14/21 17:53 98.1 F 60 18 158/73 95 Intake and Output 03/14/21 03/14/21 03/15/21 14:59 22:59 06:59 Other: Weight 53.524 kg Results CBC & Chem 7: 03/14/21 18:17 03/14/21 18:17 Labs: Abnormal Lab Results - Last 24 Hours (Table) 03/14/21 03/14/21 Range/Units 18:17 18:17 WBC 11.4 H (3.8-10.6) k/uL RBC 3.58 L (3.80-5.40) m/uL RDW 11.3 L (11.5-15.5) % Neutrophils # 9.5 H (1.3-7.7) k/uL Sodium 124 L (137-145) mmol/L Chloride 90 L (98-107) mmol/L Glucose 105 H (74-99) mg/dL
[2021-03-15] MEDS: HYDROmorphone 1 MG/ML 1 ML SYRINGE IVP PRN ×6 (03:03→22:04)
[2021-03-15] MEDS: PRAVASTATIN SODIUM 20 MG TAB PO SCH (08:03)
[2021-03-15] MEDS: SODIUM CHLORIDE 0.9% 1,000 ML IV SCH ×2 (09:50→18:45)
[2021-03-15 11:19] LABS: African American GFR (CKD) >90 (>60 ml/min/1.73 sqM); Anion Gap 6 mmol/L; Blood Urea Nitrogen 15 mg/dL (7-17); Calcium 8.5 mg/dL (8.4-10.2); Carbon Dioxide 26 mmol/L (22-30); Chloride 94 mmol/L (98-107); Glucose 95 mg/dL (74-99); Non-African American GFR(CKD) >90 (>60 ml/min/1.73 sqM); Potassium 3.6 mmol/L (3.5-5.1); Sodium 126 mmol/L (137-145)
--- NOTE | 2021-03-15 11:53 | P.PN ---
Subjective Progress Note Date: 03/15/21 CC: weakness Patient stated that she is feeling weak. She is also complaining of left arm and left hip pain. Patient says that she has not received her home medications. Objective - Vital Signs Vital signs: Vital Signs Temp 97.6 F 03/15/21 05:00 Pulse 57 L 03/15/21 09:21 Resp 16 03/15/21 05:00 BP 103/57 03/15/21 09:21 Pulse Ox 96 03/15/21 05:00 Intake & Output 03/14/21 03/15/21 03/15/21 18:59 06:59 18:59 Intake Total 2729 Output Total 350 Balance 2379 Weight 53.524 kg 53.524 kg Intake: Intake, IV Titration 1899 Amount Sodium Chloride 0.9% 1, 900 000 ml @ 75 mls/hr IV . [id number] ANA Rx#:[id number] Sodium Chloride 0.9% 500 999 ml 500 ml @ 999 mls/hr IV .Q31M ONE Rx#:[id number] Oral 830 Output: Urine 350 - Exam General examination - Alert and Oriented 3 in NAD, appears chronically debilitated Heart - + S1S2 no murmurs Lungs - Clear to auscultation Abdomen soft NT ND +ve BS Extremities - restricted range of motion of the left upper and left lower extremity [employer] - Moving all 4 extremities spontaneously Psych - Calm and cooperative - Labs CBC & Chem 7: 03/14/21 18:17 03/15/21 10:07 Labs: Abnormal Lab Results - Last 24 Hours (Table) 03/14/21 03/14/21 03/15/21 Range/Units 18:17 18:17 10:07 WBC 11.4 H (3.8-10.6) k/uL RBC 3.58 L (3.80-5.40) m/uL RDW 11.3 L (11.5-15.5) % Neutrophils # 9.5 H (1.3-7.7) k/uL Sodium 124 L 126 L (137-145) mmol/L Chloride 90 L 94 L (98-107) mmol/L Glucose 105 H (74-99) mg/dL Assessment and Plan Assessment: Preoperative evaluation -METS > 4 -RCRI score: 0; Hu Score 0.2% -The patient reports excellent exercise tolerance as she reports being able to climb several flights of stairs without having to stop. Denied exertional chest discomfort or dyspnea. Denied experiencing palpitations. Denied history of [place] or CHF. -The patient's Sodium is currently 124 which is a relative contraindication for surgery. The hyponatremia may be secondary to SiADH from pain and home diuretic use -The patient should not undergo non-emergent surgeries until Na > 130 Hyponatremia likely due to dehydratio and diuretic -C/w IVFs -Monitor BMP -Hold off on patient's home diuretic -improving L hip and clavicular fractures -Management including pain control as per the surgery service HTN -BP on low side. Hold losartan. Holding HCTZ due to hyponatremia Depression -resume lexapro HLD -resume statin Thank you for the consult and we will continue to follow along with you
--- NOTE | 2021-03-15 13:00 | P.HPOR ---
History of Present Illness H&P Date: 03/15/21 Chief Complaint: Left intertrochanteric femur fracture, left clavicle fracture Patient is a 75 she'll female who presented to [facility] yesterday evening after falling at home. Patient states that she was in her kitchen making spaghetti sauce when she turned and lost her balance and fell directly on the left side. She was unable to weight-bear at that time, she was brought to [facility] for further evaluation. It was determined during the fall she did hit her head, she did not lose consciousness. Imaging studies acutely of the head/cervical spine demonstrated no acute processes. Susan were placed in the laceration of the scalp I ER staff. Patient was admitted under orthopedic care after it was determined patient had a left intertrochanteric femur fracture. Internal medicine was placed on consult for management and clearance. Patient was evaluated today at bedside, she is resting comfortably. She notes any movement of the left lower extremity reproduces pain in the upper left leg. She has some generalized discomfort of the left shoulder with movement also. There is an arm sling present, this has not been placed due to the discomfort the patient is in. Size E left upper extremity and left lower extremity, she has no other orthopedic complaints. She denies any pain of the right lower right upper extremity. She has mild discomfort near the area of the laceration on the scalp. She denies any acute cervical, thoracic or lumbar pain. She denies any paresthesias of the bilateral upper or lower extremities. She denies any change or loss of bowel or bladder function. Patient denies any previous surgery of the left lower extremity. She is a very active female home, she ambulates with no assistive devices. It was noted on initial labs at the patient's sodium was very low. They are working on increasing neck, internal medicine is following closely. Review of Systems Constitutional: Reports as per HPI Past Medical History Past Medical History: Hyperlipidemia, Hypertension, Osteoarthritis (OA) Additional Past Medical History / Comment(s): VASCULAR HEADACHES , VARICOSE VEINS. History of Any Multi-Drug Resistant Organisms: None Reported Past Surgical History: Adenoidectomy, Bladder Surgery, Bowel Resection, Hysterectomy, Tonsillectomy, Tubal Ligation Additional Past Surgical History / Comment(s): BSO, BLACKWOOD NEUROMA LEFT FOOT, CYSTOCELE AND RECTOCELE REPAIR, Past Anesthesia/Blood Transfusion Reactions: No Reported Reaction Additional Past Anesthesia/Blood Transfusion Reaction / Comment(s): BLOOD TRANSFUSION WITH NO PROBLEM Past Psychological History: No Psychological Hx Reported Smoking Status: Former smoker, Never smoker Past Alcohol Use History: Rare Past Drug Use History: None Reported - Past Family History Mother Family Medical History: No Reported History Medications and Allergies Home Medications Medication Instructions Recorded Confirmed Type Escitalopram [Lexapro] 10 mg PO HS 03/14/21 03/14/21 History LORazepam [Ativan] 0.5 mg PO BID PRN 03/14/21 03/14/21 History Losartan/Hydrochlorothiazide 1 tab PO DAILY 03/14/21 03/14/21 History [Losartan-Hctz 100-25 mg Tab] Pravastatin Sodium [Pravachol] 20 mg PO DAILY 03/14/21 03/14/21 History Allergies Allergy/AdvReac Type Severity Reaction Status Date / Time shellfish derived [Shrimp] Allergy Dyspnea Verified 09/09/19 21:25 Physical Examination Left lower extremity: Open lesions or sores are visualized throughout the extremity, obvious shortening and external rotation as compared to the contralateral side Tenderness with palpation of the proximal left lower extremity, no tenderness with palpation surrounding the knee, lower leg, foot or ankle Logroll maneuver of the extremity reproduces severe pain, range of motion of the hip and knee were not assessed. Plantarflexion, dorsiflexion, EHL, FHL are intact Calf is soft, no tenderness with palpation. The compartments of the leg both anterior and posterior remain soft and compressible Sensory exam to light touch is intact throughout the extremity Dorsalis pedis pulses 2+ Left upper extremity: Obvious bruising and soft tissue swelling present in the distal clavicle, no open lesions are visualized Tenderness with palpation of the distal clavicle, no tenderness with the patient and the proximal humerus, elbow, radius, ulnar, and Range of motion was very limited due to pain, extension and flexion of the elbow and wrist are intact. Machine Tool Dresser strength is intact Strength testing was not assessed of the upper extremity Sensory exam to light touch throughout the extremity is intact Radial and ulnar pulses are 2+ Results - Labs Labs: Abnormal Lab Results - Last 24 Hours (Table) 03/14/21 03/14/21 03/15/21 Range/Units 18:17 18:17 10:07 WBC 11.4 H (3.8-10.6) k/uL RBC 3.58 L (3.80-5.40) m/uL RDW 11.3 L (11.5-15.5) % Neutrophils # 9.5 H (1.3-7.7) k/uL Sodium 124 L 126 L (137-145) mmol/L Chloride 90 L 94 L (98-107) mmol/L Glucose 105 H (74-99) mg/dL H & H 03/14/21 Range/Units 18:17 Hgb 12.5 (11.4-16.0) gm/dL Hct 35.0 (34.0-46.0) % Coagulation 03/14/21 Range/Units 19:02 INR 1.0 (<1.2) Result Diagrams: 03/14/21 18:17 03/15/21 10:07 - Diagnostic results Shoulder x-ray: report reviewed, image reviewed (Images demonstrate comminuted distal clavicle fracture, glenohumeral joint remains in adequate position and condition) Hip x-ray: report reviewed, image reviewed (Images demonstrated a displaced left intertrochanteric femur fracture. No other acute osseous abnormalities are appreciated) Assessment and Plan Assessment: Displaced left intertrochanteric femur fracture Comminuted left distal clavicle fracture Scalp laceration Status post fall from standing Hyponatremia Other medical comorbidities Plan: I was able to discuss the case, this to include physical exam findings and imaging studies my attending Dr. Adams. Treatment options were discussed, we feel that surgical intervention would be the best option for the patient at this time. Surgery would proceed with a intramedullary nail of the left femur. Conservative management of the left clavicle fracture, this to include use of an arm sling is recommended. We're planning for surgery on 03/16/2021. We will continue to follow and discuss with both anesthesia and internal medicine regarding her low sodium levels. We will reschedule if need be GI and DVT prophylaxis, will begin subcu medication after surgery. Recommend SCDs of the bilateral lower extremities at this time Pain control, continue use of both oral and IV medications as needed Nonweightbearing left lower extremity at this time Other medical grade shoemaker recommendations PT/OT evaluation after surgery Discharge planning: Patient will likely need subacute rehab placement, we'll discuss with both case management and social work in the coming week We'll continue to follow during inpatient stay Time with Patient: Less than 30
[2021-03-15] MEDS ORDERED: ESCITALOPRAM 10 MG TAB PO SCH (21:00)
[2021-03-16] MEDS: HYDROmorphone 1 MG/ML 1 ML SYRINGE IVP PRN ×6 (01:36→23:47)
[2021-03-16] MEDS: SODIUM CHLORIDE 0.9% 1,000 ML IV SCH (04:22)
[2021-03-16] MEDS: PRAVASTATIN SODIUM 20 MG TAB PO SCH (06:55)
[2021-03-16 07:44] LABS: African American GFR (CKD) >90 (>60 ml/min/1.73 sqM); Anion Gap 2 mmol/L; Blood Urea Nitrogen 9 mg/dL (7-17); Carbon Dioxide 27 mmol/L (22-30); Chloride 96 mmol/L (98-107); Glucose 104 mg/dL (74-99); Non-African American GFR(CKD) >90 (>60 ml/min/1.73 sqM); Potassium 3.5 mmol/L (3.5-5.1); Sodium 125 mmol/L (137-145)
[2021-03-16 08:20] LABS: Basophils % (A) 0 %; Eosinophils # (A) 0.1 k/uL (0-0.7); Eosinophils % (A) 1 %; HCT 26.1 % (34.0-46.0); Lymphocytes # (A) 1.3 k/uL (1.0-4.8); Lymphocytes % (A) 17 %; MCH 35.1 pg (25.0-35.0); MCHC 34.9 g/dL (31.0-37.0); MCV 100.6 fL (80.0-100.0); Mean Platelet Volume 7.5; Monocytes # (A) 0.5 k/uL (0-1.0); Monocytes % (A) 7 %; Neutrophils # (A) 5.4 k/uL (1.3-7.7); Neutrophils % (A) 73 %; Platelet Count 147 k/uL (150-450); RBC 2.59 m/uL (3.80-5.40); RDW 11.4 % (11.5-15.5); WBC 7.4 k/uL (3.8-10.6)
[2021-03-16 08:41] LABS: HGB 9.1 gm/dL (11.4-16.0)
--- NOTE | 2021-03-16 10:00 | P.PN ---
Subjective Progress Note Date: 03/16/21 Principal diagnosis: Left intertrochanteric femur fracture, hyponatremia Patient was scheduled for surgery earlier this morning, we did cancel the case due to her sodium not being in an ideal level. Regular diet has been ordered for the patient. Internal medicine is working on the case to help correct sodium. Patient was at bedside today, her also is present. We again reviewed the surgery itself, this to include the postoperative period including rehabilitation process. They're in good understanding of what is going on, also with the current lab abnormality and while had to reschedule surgery. Objective - Vital Signs Vital signs: Vital Signs Temp 99.2 F 03/16/21 05:00 Pulse 70 03/16/21 07:15 Resp 16 03/16/21 05:00 BP 106/60 03/16/21 07:15 Pulse Ox 95 03/16/21 05:00 Intake & Output 03/15/21 03/16/21 03/16/21 18:59 06:59 18:59 Intake Total 2240 1920 Output Total 750 500 Balance 1490 1420 Intake: Intake, IV Titration 1200 1200 Amount Sodium Chloride 0.9% 1, 1200 1200 000 ml @ 100 mls/hr IV . Q10H [facility] Rx#:[id number] Oral 1040 720 Output: Urine 750 500 Uretheral (Conrad) 500 Other: Voiding Method Indwelling Catheter Indwelling Catheter - Exam Left lower extremity: Open lesions or sores are visualized throughout the extremity, obvious shortening and external rotation as compared to the contralateral side Tenderness with palpation of the proximal left lower extremity, no tenderness with palpation surrounding the knee, lower leg, foot or ankle Logroll maneuver of the extremity reproduces severe pain, range of motion of the hip and knee were not assessed. Plantarflexion, dorsiflexion, EHL, FHL are intact Calf is soft, no tenderness with palpation. The compartments of the leg both anterior and posterior remain soft and compressible Sensory exam to light touch is intact throughout the extremity Dorsalis pedis pulses 2+ Left upper extremity: Obvious bruising and soft tissue swelling present in the distal clavicle, no open lesions are visualized Tenderness with palpation of the distal clavicle, no tenderness with the patient and the proximal humerus, elbow, radius, ulnar, and Range of motion was very limited due to pain, extension and flexion of the elbow and wrist are intact. Operating System Designer strength is intact Strength testing was not assessed of the upper extremity Sensory exam to light touch throughout the extremity is intact Radial and ulnar pulses are 2+ - Labs CBC & Chem 7: 03/16/21 06:50 03/16/21 06:50 Labs: Abnormal Lab Results - Last 24 Hours (Table) 03/15/21 03/16/21 03/16/21 Range/Units 10:07 06:50 06:50 RBC 2.59 L (3.80-5.40) m/uL Hgb 9.1 L D (11.4-16.0) gm/dL Hct 26.1 L (34.0-46.0) % MCV 100.6 H (80.0-100.0) fL MCH 35.1 H (25.0-35.0) pg RDW 11.4 L (11.5-15.5) % Plt Count 147 L (150-450) k/uL Sodium 126 L 125 L (137-145) mmol/L Chloride 94 L 96 L (98-107) mmol/L Glucose 104 H (74-99) mg/dL Calcium 8.0 L (8.4-10.2) mg/dL Assessment and Plan Assessment: Displaced left intertrochanteric femur fracture Comminuted left distal clavicle fracture Scalp laceration Status post fall from standing Hyponatremia Other medical comorbidities Plan: Surgery was canceled for today. Planning for surgery on 03/17/2021. GI and DVT prophylaxis, patient will receive 2 doses of heparin today, this will be discontinued by midnight tonight Pain control, continue use of both oral and IV medications as needed Nonweightbearing left lower extremity at this time Other certified medical aide recommendations PT/OT evaluation after surgery Discharge planning: Patient will likely need subacute rehab placement, we'll discuss with both case management and social work in the coming week We'll continue to follow during inpatient stay Time with Patient: Less than 30
[2021-03-16] MEDS ORDERED: SODIUM CHLORIDE TAB 1 GM TAB PO SCH (10:45)
--- NOTE | 2021-03-16 10:48 | P.NPCON ---
History of Present Illness - Reason for Consult hyponatremia - History of Present Illness Reason for consultation: Hyponatremia History of present illness: Patient is a 75-year-old female seen in renal consultation for hyponatremia. Patient's sodium level on admission was 124 and was up to 126 yesterday. It is 125 today. She has been receiving normal saline at 100 mL an hour. Patient does have history of high blood pressure and takes hydrochlorothiazide outpatient. Additionally she was also taking Lexapro. Patient presented to the hospital after she sustained a fall in her kitchen. Patient states she tripped and fell on her left side. She denies losing consciousness. She is noted to have left femur fracture as well as left distal clavicle fracture. She was scheduled for surgical admission today but the surgery is held due to hyponatremia. Oral intake has been poor. She's been drinking only fluids. No history of cancer. Vital signs are stable. General: The patient appeared well nourished and normally developed. HEENT: Head exam is unremarkable. Neck is without jugular venous distension. LUNGS: Breath sounds decreased. HEART: Rate and Rhythm are regular. ABDOMEN: Soft, no distention. EXTREMITITES: No edema. Past Medical History Past Medical History: Hyperlipidemia, Hypertension, Osteoarthritis (OA) Additional Past Medical History / Comment(s): VASCULAR HEADACHES , VARICOSE VEINS. History of Any Multi-Drug Resistant Organisms: None Reported Past Surgical History: Adenoidectomy, Bladder Surgery, Bowel Resection, Hysterectomy, Tonsillectomy, Tubal Ligation Additional Past Surgical History / Comment(s): BSO, BLACKWOOD NEUROMA LEFT FOOT, CYSTOCELE AND RECTOCELE REPAIR, Past Anesthesia/Blood Transfusion Reactions: No Reported Reaction Additional Past Anesthesia/Blood Transfusion Reaction / Comment(s): BLOOD TRANSFUSION WITH NO PROBLEM Past Psychological History: No Psychological Hx Reported Smoking Status: Former smoker, Never smoker Past Alcohol Use History: Rare Past Drug Use History: None Reported - Past Family History Mother Family Medical History: No Reported History Medications and Allergies Home Medications Medication Instructions Recorded Confirmed Type Escitalopram [Lexapro] 10 mg PO HS 03/14/21 03/14/21 History LORazepam [Ativan] 0.5 mg PO BID PRN 03/14/21 03/14/21 History Losartan/Hydrochlorothiazide 1 tab PO DAILY 03/14/21 03/14/21 History [Losartan-Hctz 100-25 mg Tab] Pravastatin Sodium [Pravachol] 20 mg PO DAILY 03/14/21 03/14/21 History Allergies Allergy/AdvReac Type Severity Reaction Status Date / Time shellfish derived [Shrimp] Allergy Dyspnea Verified 09/09/19 21:25 Physical Exam Vitals: Vital Signs Temp Pulse Resp BP Pulse Ox 03/16/21 07:15 70 106/60 03/16/21 05:00 99.2 F 75 16 105/53 95 03/15/21 20:46 98.5 F 65 16 92/52 91 L 03/15/21 13:34 98.4 F 60 16 119/50 98 Intake and Output 03/15/21 03/16/21 03/16/21 22:59 06:59 14:59 Intake Total 2840 1320 Output Total 400 500 Balance 2440 820 Intake: Intake, IV Titration 1200 1200 Amount Sodium Chloride 0.9% 1, 1200 1200 000 ml @ 100 mls/hr IV . Q10H [facility] Rx#:[id number] Oral 1640 120 Output: Urine 400 500 Uretheral (Conrad) 500 Other: Voiding Method Indwelling Catheter Results - Lab Results Most recent lab results Calcium 8.0 mg/dL (8.4-10.2) L 03/16/21 06:50 03/16/21 06:50 03/16/21 06:50 Assessment and Plan Plan: Assessment: 1. 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 No improvement IV hydration. Sodium level 125 today. 2. Acute left femur and clavicle fracture. Orthopedic surgery following. 3. Benign hypertension. Blood pressure on the lower side. Plan: 1500 mL fluid restriction. Add ensure 3 times a day. Add sodium chloride tablets 1 g twice a day. Continue to hold thiazide diuretic. Hep-Lock IV fluids. Repeat sodium level this afternoon. Check serum and urine osmolality and urine sodium level. Check TSH and cortisol level. Thank you for the consultation. I will continue to follow the patient with you during her hospital stay.
[2021-03-16 11:14] LABS: Partial Thromboplastin Time 24.4 sec (22.0-30.0)
[2021-03-16] MEDS: HEPARIN SODIUM,PORCINE/PF 5,000 UNIT/0.5 ML SYRINGE SQ SCH ×2 (11:15→20:13)
--- NOTE | 2021-03-16 12:33 | P.PN ---
Subjective Progress Note Date: 03/16/21 CC: weakness Patient says that she continues to feel weak. I discussed with the patient that we'll need to hold her Lexapro because it may be causing her hyponatremia. Patient is amenable to this. Patient wants to get her surgery done as soon as possible so that she can go home. at bedside Objective - Vital Signs Vital signs: Vital Signs Temp 99.2 F 03/16/21 05:00 Pulse 70 03/16/21 08:15 Resp 16 03/16/21 08:15 BP 106/60 03/16/21 07:15 Pulse Ox 95 03/16/21 05:00 Intake & Output 03/15/21 03/16/21 03/16/21 18:59 06:59 18:59 Intake Total 2240 1920 Output Total 750 500 400 Balance 1490 1420 -400 Intake: Intake, IV Titration 1200 1200 Amount Sodium Chloride 0.9% 1, 1200 1200 000 ml @ 100 mls/hr IV . Q10H [facility] Rx#:[id number] Oral 1040 720 Output: Urine 750 500 400 Uretheral (Conrad) 500 Other: Voiding Method Indwelling Catheter Indwelling Catheter Indwelling Catheter - Exam General examination - Alert and Oriented 3 in NAD, appears chronically debilitated Heart - + S1S2 no murmurs Lungs - Clear to auscultation Abdomen soft NT ND +ve BS Extremities - restricted range of motion of the left upper and left lower extremity ROOFER METAL - Moving all 4 extremities spontaneously Psych - Calm and cooperative - Labs CBC & Chem 7: 03/16/21 06:50 03/16/21 06:50 Labs: Abnormal Lab Results - Last 24 Hours (Table) 03/16/21 03/16/21 03/16/21 Range/Units 06:50 06:50 10:53 RBC 2.59 L (3.80-5.40) m/uL Hgb 9.1 L D (11.4-16.0) gm/dL Hct 26.1 L (34.0-46.0) % MCV 100.6 H (80.0-100.0) fL MCH 35.1 H (25.0-35.0) pg RDW 11.4 L (11.5-15.5) % Plt Count 147 L (150-450) k/uL Sodium 125 L (137-145) mmol/L Chloride 96 L (98-107) mmol/L Glucose 104 H (74-99) mg/dL Osmolality 270 L (280-301) mosm/kg Calcium 8.0 L (8.4-10.2) mg/dL Assessment and Plan Assessment: Preoperative evaluation -METS > 4 -RCRI score: 0; Hu Score 0.2% -The patient reports excellent exercise tolerance as she reports being able to climb several flights of stairs without having to stop. Denied exertional chest discomfort or dyspnea. Denied experiencing palpitations. Denied history of MD or CHF. -The patient's Sodium is currently 124 which is a relative contraindication for surgery. The hyponatremia may be secondary to SiADH from pain and home diuretic use -The patient should not undergo non-emergent surgeries until Na > 130 Hyponatremia likely due to SIADH -Sodium level is worsened with fluids so we'll discontinue fluids -Nephrology consult -Hold hydrochlorothiazide -1500 mL fluid restriction -Nephrology added ensure 3 times a day -Sodium chloride tablets 1 g twice a day -Repeat sodium level this afternoon -Check serum and urine osmolarity and urine sodium level -Check TSH and cortisol level - L hip and clavicular fractures -Management including pain control as per the surgery service HTN -BP on low side. Hold losartan. Holding HCTZ due to hyponatremia Depression -resume lexapro HLD -resume statin Thank you for the consult and we will continue to follow along with you
[2021-03-16 14:11] LABS: Prothrombin Time 10.8 sec (9.0-12.0)
[2021-03-16 15:45] LABS: African American GFR (CKD) >90 (>60 ml/min/1.73 sqM); Anion Gap 1 mmol/L; Blood Urea Nitrogen 9 mg/dL (7-17); Calcium 7.8 mg/dL (8.4-10.2); Carbon Dioxide 29 mmol/L (22-30); Chloride 95 mmol/L (98-107); Glucose 92 mg/dL (74-99); Non-African American GFR(CKD) >90 (>60 ml/min/1.73 sqM); Potassium 3.3 mmol/L (3.5-5.1); Sodium 125 mmol/L (137-145)
[2021-03-16] MEDS ORDERED: TOLVAPTAN 15 MG 1/2 TABLET PO ONE (16:11)
[2021-03-16] MEDS ORDERED: POTASSIUM CHLORIDE ER 20 MEQ TAB.ER PO STA (18:27)
[2021-03-16] MEDS: SENNOSIDES-DOCUSATE SODIUM 1 EACH TAB PO SCH (20:11)
[2021-03-17] MEDS: HYDROmorphone 1 MG/ML 1 ML SYRINGE IVP PRN ×4 (05:46→22:58)
[2021-03-17] MEDS: HEPARIN SODIUM,PORCINE/PF 5,000 UNIT/0.5 ML SYRINGE SQ SCH (06:53)
[2021-03-17 07:16] LABS: Basophils % (A) 1 %; Eosinophils # (A) 0.2 k/uL (0-0.7); Eosinophils % (A) 2 %; HCT 25.4 % (34.0-46.0); HGB 8.8 gm/dL (11.4-16.0); Lymphocytes # (A) 0.8 k/uL (1.0-4.8); Lymphocytes % (A) 10 %; MCH 35.2 pg (25.0-35.0); MCHC 34.7 g/dL (31.0-37.0); MCV 101.5 fL (80.0-100.0); Mean Platelet Volume 7.3; Monocytes # (A) 0.4 k/uL (0-1.0); Monocytes % (A) 6 %; Neutrophils # (A) 6.3 k/uL (1.3-7.7); Neutrophils % (A) 81 %; Platelet Count 166 k/uL (150-450); WBC 7.9 k/uL (3.8-10.6)
[2021-03-17] MEDS: polyethylene glycoL 3350 17 GM POWD.PACK PO SCH (07:31)
[2021-03-17 07:35] LABS: African American GFR (CKD) >90 (>60 ml/min/1.73 sqM); Anion Gap 0 mmol/L; Blood Urea Nitrogen 7 mg/dL (7-17); Calcium 8.3 mg/dL (8.4-10.2); Carbon Dioxide 30 mmol/L (22-30); Chloride 101 mmol/L (98-107); Glucose 105 mg/dL (74-99); Non-African American GFR(CKD) >90 (>60 ml/min/1.73 sqM); Sodium 131 mmol/L (137-145)
[2021-03-17] MEDS: PRAVASTATIN SODIUM 20 MG TAB PO SCH (08:44)
[2021-03-17] MEDS: SENNOSIDES-DOCUSATE SODIUM 1 EACH TAB PO SCH ×2 (08:44→21:18)
--- NOTE | 2021-03-17 09:59 | P.PN ---
Subjective Patient is seen in follow-up for hyponatremia. She received a dose of Samsca yesterday. Sodium level 131 today. Blood pressure stable. Nonoliguric. Oral intake poor. No vomiting or diarrhea. Vital signs are stable. General: The patient appeared well nourished and normally developed. HEENT: Head exam is unremarkable. LUNGS: Breath sounds decreased. HEART: Rate and Rhythm are regular. ABDOMEN: Soft, no distention. EXTREMITITES: No edema. Objective - Vital Signs Vital signs: Vital Signs Temp 98.3 F 03/17/21 04:35 Pulse 77 03/17/21 04:35 Resp 16 03/17/21 04:35 BP 106/65 03/17/21 04:35 Pulse Ox 97 03/17/21 04:35 Intake & Output 03/16/21 03/17/21 03/17/21 18:59 06:59 18:59 Intake Total 360 1200 Output Total 900 1600 Balance -540 -400 Intake: Intake, IV Titration 1200 Amount Sodium Chloride 0.9% 1, 1200 000 ml @ 100 mls/hr IV . Q10H [facility] Rx#:[id number] Oral 360 0 Output: Urine 900 1600 Uretheral (Conrad) 600 Other: Voiding Method Indwelling Catheter Indwelling Catheter - Labs CBC & Chem 7: 03/17/21 06:13 03/17/21 06:13 Labs: Abnormal Lab Results - Last 24 Hours (Table) 03/14/21 03/16/21 03/16/21 Range/Units 18:14 10:53 11:32 RBC (3.80-5.40) m/uL Hgb (11.4-16.0) gm/dL Hct (34.0-46.0) % MCV (80.0-100.0) fL MCH (25.0-35.0) pg Lymphocytes # (1.0-4.8) k/uL Sodium (137-145) mmol/L Potassium (3.5-5.1) mmol/L Chloride (98-107) mmol/L Creatinine (0.52-1.04) mg/dL Glucose (74-99) mg/dL Osmolality 270 L (280-301) mosm/kg Calcium (8.4-10.2) mg/dL Ur Random Sodium <20 L (40-220) mmol/L Crossmatch See Detail 03/16/21 03/17/21 03/17/21 Range/Units 15:14 06:13 06:13 RBC 2.50 L (3.80-5.40) m/uL Hgb 8.8 L (11.4-16.0) gm/dL Hct 25.4 L (34.0-46.0) % MCV 101.5 H (80.0-100.0) fL MCH 35.2 H (25.0-35.0) pg Lymphocytes # 0.8 L (1.0-4.8) k/uL Sodium 125 L 131 L (137-145) mmol/L Potassium 3.3 L (3.5-5.1) mmol/L Chloride 95 L (98-107) mmol/L Creatinine 0.48 L 0.48 L (0.52-1.04) mg/dL Glucose 105 H (74-99) mg/dL Osmolality (280-301) mosm/kg Calcium 7.8 L 8.3 L (8.4-10.2) mg/dL Ur Random Sodium (40-220) mmol/L Crossmatch Assessment and Plan Plan: Assessment: 1. 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 No improvement IV hydration. Status post Samsca given 03/16/2021. Sodium level 131 today. Urine sodium less than 20 and urine osmolality 486. TSH normal. Cortisol level not low. 2. Acute left femur and clavicle fracture. Orthopedic surgery following. 3. Benign hypertension. Blood pressure on the lower side. Plan: 1500 mL fluid restriction. Maintain ensure. Resume sodium chloride tabs. Continue to hold thiazide diuretic.
[2021-03-17] MEDS: SODIUM CHLORIDE TAB 1 GM TAB PO SCH ×2 (12:22→21:18)
--- NOTE | 2021-03-17 13:19 | P.PN ---
Subjective Progress Note Date: 03/17/21 CC: weakness Patient stated that she feels tired and her feet are cold. She states that she is scheduled for surgery today. She states that she was given something for pain this morning and so she currently does not have any pain Objective - Vital Signs Vital signs: Vital Signs Temp 98.2 F 03/17/21 12:46 Pulse 72 03/17/21 12:46 Resp 14 03/17/21 12:46 BP 120/70 03/17/21 12:46 Pulse Ox 95 03/17/21 12:46 Intake & Output 03/16/21 03/17/21 03/17/21 18:59 06:59 18:59 Intake Total 360 1200 0 Output Total 900 1600 Balance -540 -400 0 Intake: Intake, IV Titration 1200 Amount Sodium Chloride 0.9% 1, 1200 000 ml @ 100 mls/hr IV . Q10H [facility] Rx#:[id number] Oral 360 0 Blood Product 0 Rc Irr As1 Unit 0 [id number] Output: Urine 900 1600 Uretheral (Conrad) 600 Other: Voiding Method Indwelling Catheter Indwelling Catheter Indwelling Catheter - Exam General examination - Alert and Oriented 3 in NAD, appears chronically debilitated Heart - + S1S2 no murmurs Lungs - Clear to auscultation Abdomen soft NT ND +ve BS Extremities - restricted range of motion of the left upper and left lower extremity DATA ENTRY COORDINATOR - Moving all 4 extremities spontaneously Psych - Calm and cooperative - Labs CBC & Chem 7: 03/17/21 06:13 03/17/21 06:13 Labs: Abnormal Lab Results - Last 24 Hours (Table) 03/14/21 03/16/21 03/16/21 Range/Units 18:14 11:32 15:14 RBC (3.80-5.40) m/uL Hgb (11.4-16.0) gm/dL Hct (34.0-46.0) % MCV (80.0-100.0) fL MCH (25.0-35.0) pg Lymphocytes # (1.0-4.8) k/uL Sodium 125 L (137-145) mmol/L Potassium 3.3 L (3.5-5.1) mmol/L Chloride 95 L (98-107) mmol/L Creatinine 0.48 L (0.52-1.04) mg/dL Glucose (74-99) mg/dL Calcium 7.8 L (8.4-10.2) mg/dL Ur Random Sodium <20 L (40-220) mmol/L Crossmatch See Detail 03/17/21 03/17/21 Range/Units 06:13 06:13 RBC 2.50 L (3.80-5.40) m/uL Hgb 8.8 L (11.4-16.0) gm/dL Hct 25.4 L (34.0-46.0) % MCV 101.5 H (80.0-100.0) fL MCH 35.2 H (25.0-35.0) pg Lymphocytes # 0.8 L (1.0-4.8) k/uL Sodium 131 L (137-145) mmol/L Potassium (3.5-5.1) mmol/L Chloride (98-107) mmol/L Creatinine 0.48 L (0.52-1.04) mg/dL Glucose 105 H (74-99) mg/dL Calcium 8.3 L (8.4-10.2) mg/dL Ur Random Sodium (40-220) mmol/L Crossmatch Assessment and Plan Assessment: Preoperative evaluation -METS > 4 -RCRI score: 0; Hu Score 0.2% -The patient reports excellent exercise tolerance as she reports being able to climb several flights of stairs without having to stop. Denied exertional chest discomfort or dyspnea. Denied experiencing palpitations. Denied history of OH or CHF. -Patient's sodium level is now above 130. She is low risk for orthopedic surgery Hyponatremia likely due to SIADH -Sodium level is worsened with fluids so fluids were discontinued -[facility] -Nephrology on board -Hold hydrochlorothiazide -1500 mL fluid restriction -Nephrology added ensure 3 times a day -Sodium chloride tablets 1 g twice a day -TSH is within normal limits and cortisol also within normal limits -Urine osmolarity is elevated and serum osmolarity is low which is consistent with SIADH Anemia likely dilutional -Hemoglobin stable this morning -Continue to trend CBC L hip and clavicular fractures -Management including pain control as per the surgery service -Patient is scheduled for left hip repair today HTN -BP on low side. Hold losartan. Holding HCTZ due to hyponatremia Depression -resume lexapro HLD -resume statin Thank you for the consult and we will continue to follow along with you
[2021-03-17] MEDS ORDERED: TRANEXAMIC ACID 1,000 MG in SODIUM CHLORIDE 0.9% 100 ML IVPB PRN (14:00)
[2021-03-17] MEDS ORDERED: IV FLUID CONTINUATION 1,000 ML IV ONE (14:05)
[2021-03-17] MEDS ORDERED: ONDANSETRON 4 MG/2 ML VIAL IVP ONE (14:42)
[2021-03-17] MEDS ORDERED: DEXAMETHASONE SOD PHOSPHATE 4 MG/ML 1 ML VIAL IVP ONE (14:43)
[2021-03-17] MEDS ORDERED: ePHEDrine 50 MG/ML 1 ML AMP ONE (15:43)
[2021-03-17] MEDS ORDERED: MIDAZOLAM 2 MG/2 ML VIAL ONE (15:43)
[2021-03-17] MEDS ORDERED: TRANEXAMIC ACID 1,000 MG/10 ML VIAL ONE (15:43)
[2021-03-17] MEDS ORDERED: SODIUM CHLORIDE 0.9% 100 ML BAG ONE (15:43)
[2021-03-17] MEDS ORDERED: PROPOFOL 10 MG/ML 20 ML VIAL IV ONE (15:43)
[2021-03-17] MEDS ORDERED: KETAMINE 10 MG/ML 20 ML VIAL ONE (15:43)
[2021-03-17] MEDS ORDERED: SODIUM CHLORIDE 0.9% 100 ML with ceFAZolin 2,000 MG IV ONE ×2 (16:00)
[2021-03-17] MEDS ORDERED: HYDROmorphone 0.5 MG/0.5 ML SYRINGE IVP PRN (17:16)
[2021-03-17] MEDS ORDERED: HYDROmorphone 0.2 MG/1 ML SYRINGE IVP PRN (17:16)
[2021-03-17] MEDS ORDERED: NALOXONE 0.4 MG/ML 1 ML VIAL IV PRN (17:16)
--- NOTE | 2021-03-17 17:16 | P.OP ---
Date of Procedure: 03/17/21 Preoperative Diagnosis: Comminuted left hip intertrochanteric fracture Postoperative Diagnosis: Comminuted intertrochanteric/subtrochanteric left hip fracture Procedure(s) Performed: Trochanteric nailing left hip Implants: Arthrex ES trochanteric nail 11 mm x 330 mm with a 105 mm femoral head capture screw and a 32 mm mid locking screw Anesthesia: spinal Surgeon: Serg Adams Delivery Engineer #1: Juventino See Estimated Blood Loss (ml): 125 Pathology: other Condition: stable Disposition: PACU Indications for Procedure: 75-year-old patient seen with a comminuted left hip intertrochanteric fracture with a subtrochanteric component. I discussed trochanteric nailing. Patient and were agreeable, consent was obtained. Operative Findings: See description of procedure Description of Procedure: Patient was taken to the operative suite. Patient received preoperative IV antibiotics. Patient underwent a spinal anesthetic by the anesthesia. Patient was transferred to the Rufina table. The left lower extremity was placed in longitudinal traction with some adduction and internal rotation. The right lower chest is in well-padded well-leg abreu. The C-arm was brought in confirming adequate alignment of this comminuted fracture. The C-arm was now pulled back. The left hip was prepped and draped in the normal sterile orthopedic fashion. I made an incision beginning at the proximal aspect of the greater trochanter extending proximally approximately 4 inches sharply through skin. I dissected down to the iliotibial band. I made an incision through the iliotibial band. I now introduced a guidepin into the tip of the trochanter extending intramedullary canal. I now exchanging that for a ball-tipped guidewire. I reamed up to a 12. I chose a Arthrex ES trochanteric nail 11 mm x 330 mm and introduced over the guidewire and down to the intramedullary canal. I confirmed adequate positioning via fluoroscopy. I now introduced the cannula for our femoral head guidewire. A median incision and the cannulas pressed up against the femur. I introduced a guidewire into the head neck complex confirming adequate position in AP and lateral intraoperative imaging. I now reamed over the guidewire and introduced the femoral head capture screw which had good bite and purchase. That was not locked into position. The cannula for that guidewire was removed. I now introduced a cannula for the mid nail locking screw. An incision made through the skin and a cannula was now pushed up against the lateral cortex of the femur. I now made a drill hole through that locking screw and appropriate length locking screw was introduced which had good bite and purchase. I now removed the entire outrigger and reviewed the entire construct under AP and lateral intraoperative imaging. We noted good reduction and position of the fracture along with good positioning of the internal fixation. The wound was irrigated copiously. The IT band was repaired with #1 Vicryl. The subcu soft tissues were repaired with 2-0 Vicryl. The incisions were approximated with skin john. I applied sterile dressings. The patient was awakened and transferred to a bed and recovery stable condition. Segundo PULLIAM assisted with this procedure.
[2021-03-17] MEDS ORDERED: SODIUM CHLORIDE 0.9% 1,000 ML IV ONE (17:19)
[2021-03-17 22:25] LABS: Basophils % (A) 0 %; Eosinophils % (A) 0 %; HCT 26.7 % (34.0-46.0); HGB 9.2 gm/dL (11.4-16.0); Lymphocytes # (A) 0.3 k/uL (1.0-4.8); Lymphocytes % (A) 3 %; MCH 34.3 pg (25.0-35.0); MCHC 34.3 g/dL (31.0-37.0); MCV 99.8 fL (80.0-100.0); Mean Platelet Volume 7.3; Monocytes # (A) 0.2 k/uL (0-1.0); Monocytes % (A) 2 %; Neutrophils # (A) 9.2 k/uL (1.3-7.7); Neutrophils % (A) 94 %; Platelet Count 147 k/uL (150-450); RBC 2.68 m/uL (3.80-5.40); RDW 12.6 % (11.5-15.5); WBC 9.8 k/uL (3.8-10.6)
[2021-03-18] MEDS: HYDROmorphone 1 MG/ML 1 ML SYRINGE IVP PRN ×4 (04:47→20:14)
--- NOTE | 2021-03-18 06:57 | FL ---
EXAMINATION TYPE: FL guidance operating room, XR Hip Complete LT DATE OF EXAM: 03/17/2021 CLINICAL HISTORY: Left hip fracture. TECHNIQUE: Fluoroscopy. Intraoperative 2 views left hip. COMPARISON: Pelvic and left hip x-ray 3 days ago FINDINGS: Fluoroscopic guidance was provided during open reduction internal fixation procedure perfo rmed by Dr. Adams. A total of 2 minutes 34 seconds of fluoroscopic time was utilized during the procedure and two spot intraoperative images are acquired. Intraoperative images obtained show placement of intramedullary olga with distal transverse fixating s crew and large proximal femoral neck fixating screw through the intertrochanteric fracture left proxi mal femur. Satisfactory alignment is seen on intraoperative images obtained after reduction and fixat ion. IMPRESSION: As Above.
[2021-03-18 09:10] LABS: HCT 25.5 % (37.2-46.3); HGB 8.6 g/dL (12.0-15.0); MCH 33.6 pg (27.0-32.0); MCHC 33.7 g/dL (32.0-37.0); MCV 99.6 fL (80.0-97.0); NRBC Per 100 WBC 0 /100 WBCS (0.0-0.0); Platelet Count 146 X 10*3/uL (140-440); RBC 2.56 X 10*6/uL (4.10-5.20); RDW 12.9 % (11.5-14.5)
[2021-03-18 09:19] LABS: African American GFR (CKD) 117.3 (60.0-200.0); Albumin 3.1 g/dL (3.8-4.9); Albumin/Globulin Ratio 1.63 (1.60-3.17); Anion Gap 9.2 mmol/L (10.00-18.00); BUN/Creat Ratio 23.75 Ratio (12.00-20.00); Blood Urea Nitrogen 9.5 mg/dL (9.0-27.0); Calcium 8.3 mg/dL (8.7-10.3); Carbon Dioxide 24.8 mmol/L (20.0-27.5); Globulin 1.9 g/dL (1.6-3.3); Magnesium 1.8 mg/dL (1.5-2.4); Non-African American GFR(CKD) 101.2 (60.0-200.0); Potassium 4.4 mmol/L (3.5-5.5); Total Bilirubin 0.7 mg/dL (0.30-1.20)
[2021-03-18] MEDS: polyethylene glycoL 3350 17 GM POWD.PACK PO SCH (10:22)
[2021-03-18] MEDS: PRAVASTATIN SODIUM 20 MG TAB PO SCH (10:22)
[2021-03-18] MEDS: SODIUM CHLORIDE TAB 1 GM TAB PO SCH (10:24)
[2021-03-18] MEDS: SENNOSIDES-DOCUSATE SODIUM 1 EACH TAB PO SCH ×2 (10:24→20:10)
--- NOTE | 2021-03-18 10:51 | P.PN ---
Subjective Progress Note Date: 03/18/21 Principal diagnosis: Left intertrochanteric/subtrochanteric femur fracture, status post IM nail Patient tolerated bedside, she is resting in her hospital bed, she appears comfortable. She currently has no headaches, lightheadedness or chest pain. She has generalized discomfort in the left lower shoulder. She was able to get this out of the bed today. She has a urinary catheter still in place. Hemoglobin has remained stable at 8.8 after transfusion and surgery yesterday. Objective - Vital Signs Vital signs: Vital Signs Temp 97.7 F 03/18/21 08:00 Pulse 60 03/18/21 08:00 Resp 15 03/18/21 08:00 BP 107/66 03/18/21 08:00 Pulse Ox 93 L 03/18/21 08:00 Intake & Output 03/17/21 03/18/21 03/18/21 18:59 06:59 18:59 Intake Total 2570 500 Output Total 400 350 Balance 2170 150 Intake: IV 1900 Intake, IV Titration 50 50 Amount ceFAZolin 2 gm In Sodium 50 50 Chloride 0.9% 50 ml @ 100 mls/hr IVPB Q8HR [facility] Rx# :[id number] Oral 450 Blood Product 620 Rc Irr As1 Unit 310 [id number] Output: Urine 275 350 Estimated Blood Loss 125 Other: Voiding Method Indwelling Catheter Indwelling Catheter - Exam Left lower extremity: Foam dressings are in good position and condition, they are showing no obvious drainage. Such swelling and ecchymosis is present about the extremity. The compartments of the anterior posterior leg are soft. Calf is soft, no tenderness with palpation. Plantar flexion, dorsiflexion, EHL, FHL are intact. Sensory exam to light touch is intact throughout the extremity. Dorsalis pedis pulses 2+ - Labs CBC & Chem 7: 03/18/21 05:41 03/18/21 05:41 Labs: Abnormal Lab Results - Last 24 Hours (Table) 03/14/21 03/17/21 03/18/21 Range/Units 18:14 21:56 05:41 WBC 10.50 H (4.50-10.00) X 10*3/uL RBC 2.68 L 2.56 L (3.80-5.40) m/uL Hgb 9.2 L 8.6 L (11.4-16.0) gm/dL Hct 26.7 L 25.5 L (34.0-46.0) % MCV 99.6 H (80.0-97.0) fL MCH 33.6 H (27.0-32.0) pg Plt Count 147 L (150-450) k/uL Neutrophils # 9.2 H (1.3-7.7) k/uL Lymphocytes # 0.3 L (1.0-4.8) k/uL Anion Gap (10.00-18.00) mmol/L Creatinine (0.6-1.5) mg/dL BUN/Creatinine Ratio (12.00-20.00) Ratio Glucose (70-110) mg/dL Calcium (8.7-10.3) mg/dL Total Protein (6.2-8.2) g/dL Albumin (3.8-4.9) g/dL Crossmatch See Detail 03/18/21 Range/Units 05:41 WBC (4.50-10.00) X 10*3/uL RBC (3.80-5.40) m/uL Hgb (11.4-16.0) gm/dL Hct (34.0-46.0) % MCV (80.0-97.0) fL MCH (27.0-32.0) pg Plt Count (150-450) k/uL Neutrophils # (1.3-7.7) k/uL Lymphocytes # (1.0-4.8) k/uL Anion Gap 9.20 L (10.00-18.00) mmol/L Creatinine 0.4 L (0.6-1.5) mg/dL BUN/Creatinine Ratio 23.75 H (12.00-20.00) Ratio Glucose 121 H (70-110) mg/dL Calcium 8.3 L (8.7-10.3) mg/dL Total Protein 5.0 L (6.2-8.2) g/dL Albumin 3.1 L (3.8-4.9) g/dL Crossmatch Assessment and Plan Assessment: Postoperative day #1 status post IM nail left intertrochanteric/subtrochanteric femur fracture Acute blood loss anemia, expected surgical outcome Other medical comorbidities Plan: Pain control, continue with current medication GI and DVT prophylaxis, continue with subcu medication Dressing instructions, daily foam dressing in place at this time Ice the extremity often Weight-bear as tolerated with walker PT/OT evaluation Other medical specialty recommendations Discharge planning: Discussed with nursing, they are working with case management for subacute rehab placement. We'll discharge him in stable Time with Patient: Less than 30
--- NOTE | 2021-03-18 11:09 | P.PN ---
Subjective Patient is seen in follow-up for hyponatremia. She received a dose of Samsca this admission. Sodium level 137 today. Blood pressure stable. Nonoliguric. Oral intake poor. No vomiting or diarrhea. Vital signs are stable. General: The patient appeared well nourished and normally developed. HEENT: Head exam is unremarkable. LUNGS: Breath sounds decreased. HEART: Rate and Rhythm are regular. ABDOMEN: Soft, no distention. EXTREMITITES: No edema. Objective - Vital Signs Vital signs: Vital Signs Temp 97.7 F 03/18/21 08:00 Pulse 60 03/18/21 08:00 Resp 15 03/18/21 08:00 BP 107/66 03/18/21 08:00 Pulse Ox 93 L 03/18/21 08:00 Intake & Output 03/17/21 03/18/21 03/18/21 18:59 06:59 18:59 Intake Total 2570 500 Output Total 400 350 Balance 2170 150 Intake: IV 1900 Intake, IV Titration 50 50 Amount ceFAZolin 2 gm In Sodium 50 50 Chloride 0.9% 50 ml @ 100 mls/hr IVPB Q8HR [facility] Rx# :[id number] Oral 450 Blood Product 620 Rc Irr As1 Unit 310 [id number] Output: Urine 275 350 Estimated Blood Loss 125 Other: Voiding Method Indwelling Catheter Indwelling Catheter - Labs CBC & Chem 7: 03/18/21 05:41 03/18/21 05:41 Labs: Abnormal Lab Results - Last 24 Hours (Table) 03/14/21 03/17/21 03/18/21 Range/Units 18:14 21:56 05:41 WBC 10.50 H (4.50-10.00) X 10*3/uL RBC 2.68 L 2.56 L (3.80-5.40) m/uL Hgb 9.2 L 8.6 L (11.4-16.0) gm/dL Hct 26.7 L 25.5 L (34.0-46.0) % MCV 99.6 H (80.0-97.0) fL MCH 33.6 H (27.0-32.0) pg Plt Count 147 L (150-450) k/uL Neutrophils # 9.2 H (1.3-7.7) k/uL Lymphocytes # 0.3 L (1.0-4.8) k/uL Anion Gap (10.00-18.00) mmol/L Creatinine (0.6-1.5) mg/dL BUN/Creatinine Ratio (12.00-20.00) Ratio Glucose (70-110) mg/dL Calcium (8.7-10.3) mg/dL Total Protein (6.2-8.2) g/dL Albumin (3.8-4.9) g/dL Crossmatch See Detail 03/18/21 Range/Units 05:41 WBC (4.50-10.00) X 10*3/uL RBC (3.80-5.40) m/uL Hgb (11.4-16.0) gm/dL Hct (34.0-46.0) % MCV (80.0-97.0) fL MCH (27.0-32.0) pg Plt Count (150-450) k/uL Neutrophils # (1.3-7.7) k/uL Lymphocytes # (1.0-4.8) k/uL Anion Gap 9.20 L (10.00-18.00) mmol/L Creatinine 0.4 L (0.6-1.5) mg/dL BUN/Creatinine Ratio 23.75 H (12.00-20.00) Ratio Glucose 121 H (70-110) mg/dL Calcium 8.3 L (8.7-10.3) mg/dL Total Protein 5.0 L (6.2-8.2) g/dL Albumin 3.1 L (3.8-4.9) g/dL Crossmatch Assessment and Plan Plan: Assessment: 1. 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 No improvement IV hydration. Status post Samsca given 03/16/2021. Sodium level 137 today. Urine sodium less than 20 and urine osmolality 486. TSH normal. Cortisol level not low. 2. Acute left femur and clavicle fracture. Orthopedic surgery following. 3. Benign hypertension. Blood pressure on the lower side. Plan: 1500 mL fluid restriction. Maintain ensure. Maintain sodium chloride tabs. Continue to hold thiazide diuretic.
[2021-03-18] MEDS: HYDROmorphone 0.5 MG/0.5 ML SYRINGE IVP PRN (13:03)
--- NOTE | 2021-03-18 14:39 | P.PN ---
Subjective Progress Note Date: 03/18/21 Hospital course: Patient is a very pleasant 75-year-old female with a past medical history of hypertension and hyperlipidemia. She presented to the emergency department on 03/14/21 status post mechanical fall at home. She underwent full workup and was found to have an acute left distal clavicle fracture of her left shoulder and left hip x-ray revealed an acute fracture of the intertrochanteric region of the left femur. In addition patient was noted to have leukocytosis with a WBC count of 11.4 and hyponatremia with sodium of 124. She was admitted under orthopedic surgery team and we were consulted for continued medical management and nephrology was consulted for management of hyponatremia. Patient is status post trochanteric nailing of left hip secondary to comminuted int ertrochanteric/subtrochanteric left hip fracture. Surgical procedure completed by Dr. Adams on 03/17/21. Physical exam: Patient seen and fully evaluated at bedside this morning. She appears to be doing well. Left arm remains in sling. Postsurgical dressings left lateral hip and thigh intact with no signs of bleeding or drainage present. Patient reports postoperative pain is currently controlled. She denies having any headache, lightheadedness, dizziness, chest pain, palpitations, or experiencing any numbness/tingling/focal weakness in her extremities. Postoperative hemoglobin stable at 8.6. Hyponatremia resolved with sodium of 137. Vital signs stable. Vital signs reviewed and stable. General: Nontoxic, no distress and appears stated age. Derm: Skin warm and dry, normal coloration for ethnicity. Head: Atraumatic, normocephalic and symmetric. Eyes: EOMs intact, no lid lag, and anicteric sclera Mouth: no lip lesions, mucus membranes moist Cardiovascular: regular rate and rhythm with normal S1S2, no murmur, positive posterior tibial pulses bilaterally, and cap refill < 2 seconds. Lungs: Respirations even, regular, and unlabored on room air. Lungs CTA bilaterally, no rhonchi, no rales, no wheezing, and no accessory muscle usage. Abdominal: soft, nontender to palpation, no guarding, no appreciable organomegaly Ext: ROM intact. No gross muscle atrophy, no edema, no contractures Neuro: Speech clear, face symmetrical and CN II-XII grossly intact with no noted focal neuro deficits Psych: Alert and oriented to person, place, time, and situation. Appropriate and pleasant affect. Assessment and Plan of Care: Status post trochanteric nailing of left hip secondary to comminuted intertrochanteric/subtrochanteric left hip fracture, Day 1 postop Left clavicular fracture Pain management, weightbearing, PT/OT, dressing changes, postoperative wound care and DVT prophylaxis per primary admitting orthopedic surgery team. Encourage use of incentive spirometry 10-15 times hourly while awake. Safe and supportive care. Hyponatremia, multifactorial secondary to SIADH and daily use of thiazide diuretics -Sodium level is worsened with fluids so fluids were discontinued -Status post Samsca on 03/16/2021 -Nephrology on board -Hold hydrochlorothiazide -1500 mL fluid restriction -Nephrology added ensure 3 times a day -Sodium chloride tablets 1 g twice a day -TSH is within normal limits and cortisol also within normal limits -Urine osmolarity is elevated and serum osmolarity is low which is consistent with SIADH HTN -BP on low side. Hold losartan. Holding HCTZ due to hyponatremia Depression -Resume lexapro Hyperlipidemia -Resume pravastatin. Thank you for allowing us to participate in the care of this pleasant patient. Do not hesitate to contact us with questions. Someone can be reached from the [facility] hospitalist group all hours of the day at [phone] or via [employer]. Objective - Vital Signs Vital signs: Vital Signs Temp 97.7 F 03/18/21 08:00 Pulse 60 03/18/21 08:00 Resp 15 03/18/21 08:00 BP 107/66 03/18/21 08:00 Pulse Ox 93 L 03/18/21 08:00 Intake & Output 03/17/21 03/18/21 03/18/21 18:59 06:59 18:59 Intake Total 2570 500 Output Total 400 350 Balance 2170 150 Intake: IV 1900 Intake, IV Titration 50 50 Amount ceFAZolin 2 gm In Sodium 50 50 Chloride 0.9% 50 ml @ 100 mls/hr IVPB Q8HR [facility] Rx# :[id number] Oral 450 Blood Product 620 Rc Irr As1 Unit 310 [id number] Output: Urine 275 350 Estimated Blood Loss 125 Other: Voiding Method Indwelling Catheter Indwelling Catheter - Labs CBC & Chem 7: 03/18/21 05:41 03/18/21 05:41 Labs: Abnormal Lab Results - Last 24 Hours (Table) 03/14/21 03/17/21 Range/Units 18:14 21:56 RBC 2.68 L (3.80-5.40) m/uL Hgb 9.2 L (11.4-16.0) gm/dL Hct 26.7 L (34.0-46.0) % Plt Count 147 L (150-450) k/uL Neutrophils # 9.2 H (1.3-7.7) k/uL Lymphocytes # 0.3 L (1.0-4.8) k/uL Crossmatch See Detail
[2021-03-18] MEDS: HEPARIN SODIUM,PORCINE/PF 5,000 UNIT/0.5 ML SYRINGE SQ SCH (20:10)
[2021-03-19] MEDS: HYDROmorphone 0.5 MG/0.5 ML SYRINGE IVP PRN ×4 (03:16→21:10)
[2021-03-19] MEDS: PRAVASTATIN SODIUM 20 MG TAB PO SCH (08:26)
[2021-03-19] MEDS: polyethylene glycoL 3350 17 GM POWD.PACK PO SCH (08:26)
[2021-03-19] MEDS: HEPARIN SODIUM,PORCINE/PF 5,000 UNIT/0.5 ML SYRINGE SQ SCH ×2 (08:26→20:20)
[2021-03-19] MEDS: SENNOSIDES-DOCUSATE SODIUM 1 EACH TAB PO SCH ×2 (08:27→20:20)
[2021-03-19] MEDS: SODIUM CHLORIDE TAB 1 GM TAB PO SCH (08:27)
[2021-03-19] MEDS: HYDROcodone/APAP 5-325MG 1 EACH TAB PO PRN (08:42)
[2021-03-19 09:24] LABS: African American GFR (CKD) 117.3 (60.0-200.0); Anion Gap 6.5 mmol/L (10.00-18.00); BUN/Creat Ratio 22.5 Ratio (12.00-20.00); Calcium 8.3 mg/dL (8.7-10.3); Carbon Dioxide 27.5 mmol/L (20.0-27.5); Magnesium 1.9 mg/dL (1.5-2.4); Non-African American GFR(CKD) 101.2 (60.0-200.0); Potassium 4.1 mmol/L (3.5-5.5)
--- NOTE | 2021-03-19 12:21 | P.PN ---
Subjective Working with physical therapy. Patient is seen in follow-up for hyponatremia. She received a dose of Samsca this admission. Sodium level 135 today. Maintained on sodium chloride tablet daily. Blood pressure stable. Nonoliguric. Oral intake poor. No vomiting or diarrhea. Vital signs are stable. General: The patient appeared well nourished and normally developed. HEENT: Head exam is unremarkable. LUNGS: Breath sounds decreased. HEART: Rate and Rhythm are regular. ABDOMEN: Soft, no distention. EXTREMITITES: No edema. Objective - Vital Signs Vital signs: Vital Signs Temp 99.3 F 03/19/21 11:19 Pulse 63 03/19/21 11:19 Resp 16 03/19/21 11:19 BP 111/58 03/19/21 11:19 Pulse Ox 95 03/19/21 11:19 Intake & Output 03/18/21 03/19/21 03/19/21 18:59 06:59 18:59 Intake Total 50 700 Output Total 400 1000 Balance -350 -300 Intake: Intake, IV Titration 50 Amount ceFAZolin 2 gm In Sodium 50 Chloride 0.9% 50 ml @ 100 mls/hr IVPB Q8HR [facility] Rx# :[id number] Oral 700 Output: Urine 400 1000 Uretheral (Conrad) 500 Other: Voiding Method Indwelling Catheter - Labs CBC & Chem 7: 03/18/21 05:41 03/19/21 06:12 Labs: Abnormal Lab Results - Last 24 Hours (Table) 03/19/21 Range/Units 06:12 Anion Gap 6.50 L (10.00-18.00) mmol/L Creatinine 0.4 L (0.6-1.5) mg/dL BUN/Creatinine Ratio 22.50 H (12.00-20.00) Ratio Calcium 8.3 L (8.7-10.3) mg/dL Assessment and Plan Plan: Assessment: 1. 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 No improvement IV hydration. Status post Samsca given 03/16/2021. Now on oral sodium chloride. Sodium level 135 today. Urine sodium less than 20 and urine osmolality 486. TSH normal. Cortisol level not low. 2. Acute left femur and clavicle fracture. Orthopedic surgery following. 3. Benign hypertension. Stable. Plan: 1500 mL fluid restriction. Maintain ensure. Maintain sodium chloride tab. Continue to hold thiazide diuretic. Repeat labs in the morning.
[2021-03-19] MEDS ORDERED: HYDROcodone/APAP 5-325MG 1 EACH TAB PO PRN (12:52)
--- NOTE | 2021-03-19 13:31 | P.DS ---
Providers Date of admission: 03/14/21 18:48 Expected date of discharge: 03/19/21 Attending physician: Serg Adams Consults: 03/14/21 19:49 Consult Physician Routine Consulting Provider: Dominic Mistry Consult Reason/Comments: Preoperative clearance Do you want consulting provider notified?: Already Contacted 03/16/21 09:39 Consult Physician Routine Consulting Provider: Andrade Garcia Consult Reason/Comments: hyponatremia Do you want consulting provider notified?: Yes Primary care physician: Stated None Hospital Course: Date of admission: 03/16/2021 Date of discharge: 03/19/2021 Admission diagnosis: left intertrochanteric/subtrochanteric femur fracture Discharge diagnosis: Same Attending physician: Dr. Adams Surgical procedures: Left hip IM nail Brief history: Patient is a 75-year-old female with a history of left intertrochanteric/trochanteric femur fracture status post fall. At this point patient has failed conservative treatment measures and has opted to proceed with a elective left hip IM nail. Hospital course: Details of patient's surgery can be found in operative report. Patient tolerated the procedure well and was subsequently transported to orthopedic floor. Patient's orthopeidc and medical care was provided daily. Patient had daily laboratory tests performed for evaluation of overall blood counts. Patient had daily physical therapy to include strengthening range of motion as well as education with walker ambulation. Patient was treated with heparin for their postoperative DVT prophylaxis during their inpatient stay. Patient was noted to have a relatively uneventful postoperative course. Patient reported satisfactory pain control with oral pain medications by postoperative day 2. Patient showed satisfactory progress with physical therapy. Patient moved steadily through the program and had no difficulty meeting the goals by postoperative day 2. Given patient's otherwise satisfactory course and having met physical therapy goals, plan is to discharge patient to [facility] for rehab on postoperative day 2. Discharge condition/disposition: Patient will be discharged to [facility] for rehab in stable condition. Discharge medications: Instructions are given on resumption of patient's normal daily medications per primary care recommendation, in addition patient will be prescribed Bridgeton; Lovenox; senna. Discharge instructions: 1. Wound care and infection precautions, keep incision dry and covered while showering, no lotions, creams, moisturizers. No soaking, tubs, pools, hottubs. Do not scrub over the incision. 2. Weight-bear as tolerated with walker / cane until follow-up. 3. Ice and elevate when necessary. Do not exceed 20 minutes per hour with ice pack.. 4. nursing care and PT 5. Pain meds and anticoagulants per prescription. 6. Pain medication has potential to cause constipation. Increase oral fluid and fiber intake. Contact primary care provider if you have not had a bowel movement within 48 hours after discharge 7. No anti-inflammatory medication until discussed at first post operative visit, this including Motrin, Aleve, Mobic, Diclofenac. 8. Follow up in office at 2 weeks postop with Segundo See PA-C / Natan Pepe PA-C 9. Follow up with your primary care doctor 7-10 days after discharge. 10. Contact [facility] with any questions, . Keep incision clean, dry, intact. Silver foam dressing may be removed on 03/25/2021. Follow up in office in 2 weeks for staple removal Medications: Bridgeton 5 mg/325 mg; senna; Lovenox Assessment: left intertrochanteric/trochanteric femur fracture Procedures: Left hip IM nail Patient Condition at Discharge: Stable Plan - Discharge Summary Discharge Rx Participant: No New Discharge Prescriptions: New HYDROcodone/APAP 5-325MG [Bridgeton 5-325] 1 tab PO Q6HR PRN #24 tab PRN Reason: Pain Sennosides [Senna] 8.6 mg PO DAILY #20 tablet Enoxaparin [Lovenox] 30 mg SQ DAILY #21 each No Action Losartan/Hydrochlorothiazide [Losartan-Hctz 100-25 mg Tab] 1 tab PO DAILY LORazepam [Ativan] 0.5 mg PO BID PRN PRN Reason: Anxiety Pravastatin Sodium [Pravachol] 20 mg PO DAILY Escitalopram [Lexapro] 10 mg PO HS Discharge Medication List Escitalopram [Lexapro] 10 mg PO HS 03/14/21 [History] LORazepam [Ativan] 0.5 mg PO BID PRN 03/14/21 [History] Losartan/Hydrochlorothiazide [Losartan-Hctz 100-25 mg Tab] 1 tab PO DAILY 03/14/21 [History] Pravastatin Sodium [Pravachol] 20 mg PO DAILY 03/14/21 [History] Enoxaparin [Lovenox] 30 mg SQ DAILY #21 each 03/19/21 [Rx] HYDROcodone/APAP 5-325MG [Bridgeton 5-325] 1 tab PO Q6HR PRN #24 tab 03/19/21 [Rx] Sennosides [Senna] 8.6 mg PO DAILY #20 tablet 03/19/21 [Rx] Follow up Appointment(s)/Referral(s): Juventino See, EMMY [PHYSICIAN GEODESIST] - 2 Weeks None,Stated [Primary Care Provider] - 1-2 days Activity/Diet/Wound Care/Special Instructions: Discharge instructions: 1. Wound care and infection precautions, keep incision dry and covered while showering, no lotions, creams, moisturizers. No soaking, tubs, pools, hottubs. Do not scrub over the incision. 2. Weight-bear as tolerated with walker / cane until follow-up. 3. Ice and elevate when necessary. Do not exceed 20 minutes per hour with ice pack.. 4. nursing care and PT 5. Pain meds and anticoagulants per prescription. 6. Pain medication has potential to cause constipation. Increase oral fluid and fiber intake. Contact primary care provider if you have not had a bowel movement within 48 hours after discharge 7. No anti-inflammatory medication until discussed at first post operative visit, this including Motrin, Aleve, Mobic, Diclofenac. 8. Follow up in office at 2 weeks postop with Segundo See PA-C / Natan Pepe PA-C 9. Follow up with your primary care doctor 7-10 days after discharge. 10. Contact [facility] with any questions, . Keep incision clean, dry, intact. Silver foam dressing may be removed on 03/25/2021. Follow up in office in 2 weeks for staple removal Medications: Bridgeton 5 mg/325 mg; senna; Lovenox Discharge Disposition: TRANSFER TO SNF/ECF
--- NOTE | 2021-03-19 13:40 | P.PN ---
Subjective Progress Note Date: 03/19/21 Principal diagnosis: Left intertrochanteric/subtrochanteric femur fracture, status post IM nail Patient was seen at bedside this morning resting comfortably lying supine in bed. Patient says she did get up and sit up at bedside today with physical therapy. Patient said she was able to stand at bedside with physical therapy at side. Patient says she did not take any steps. Patient says her hip is still in moderate amount of pain. Patient denies chest pain, fever, chest breath, nausea, vomiting, change in vision, loss of bowel/bladder control. Objective - Vital Signs Vital signs: Vital Signs Temp 99.3 F 03/19/21 11:19 Pulse 63 03/19/21 11:19 Resp 16 03/19/21 11:19 BP 111/58 03/19/21 11:19 Pulse Ox 95 03/19/21 11:19 Intake & Output 03/18/21 03/19/21 03/19/21 18:59 06:59 18:59 Intake Total 50 700 Output Total 400 1000 Balance -350 -300 Intake: Intake, IV Titration 50 Amount ceFAZolin 2 gm In Sodium 50 Chloride 0.9% 50 ml @ 100 mls/hr IVPB Q8HR [facility] Rx# :[id number] Oral 700 Output: Urine 400 1000 Uretheral (Conrad) 500 Other: Voiding Method Indwelling Catheter - Exam Left hip: Incision is clean, dry, and intact. The silver foam dressings are in good condition. There is minimal soft tissue swelling and ecchymosis surrounding the medial and lateral aspects of the incision. Calf is soft, no tenderness with palpation. Plantar flexion, dorsiflexion, EHL, FHL are intact. Sensory exam to light touch throughout the extremity is intact, dorsal pedis pulses 2+. - Labs CBC & Chem 7: 03/18/21 05:41 03/19/21 06:12 Labs: Abnormal Lab Results - Last 24 Hours (Table) 03/19/21 Range/Units 06:12 Anion Gap 6.50 L (10.00-18.00) mmol/L Creatinine 0.4 L (0.6-1.5) mg/dL BUN/Creatinine Ratio 22.50 H (12.00-20.00) Ratio Calcium 8.3 L (8.7-10.3) mg/dL Assessment and Plan Assessment: Left intertrochanteric/subtrochanteric femur fracture, status post IM nail Postop day #2 status post left hip IM nail Plan: 1. Left intertrochanteric/subtrochanteric femur fracture - surgery for 03/17/2021 - left hip IM nail. Patient stable at bedside this morning. Plan discharge to [facility] for rehab today 2. Appreciate medical management 3. Pain management - Langtry; tramadol 4. DVT prophylaxis - going to [facility] with Lovenox 5. GI prophylaxis - senna 6. PT/OT - weightbearing as tolerated with walker and assistance 7. Encourage incentive spirometer use 8. Discharge planning - discharge to rehab today Time with Patient: Less than 30
--- NOTE | 2021-03-19 14:22 | P.PN ---
Progress Note - Text Progress Note Date: 03/19/21 Received a call from social work stating, pt was very upset over discharged today and stated "I need a gun to shoot my head off and then it won't be an issue." Went to bedside to talk with patient about statement. Pt stated that she said this comment out of anger. When asked if she was actively having suicidal thoughts, patient states, "everyone thinks about suicide once in a while". When asked if she had previous suicidal attempts or if she was actively having plans for suicide, pt would not answer and repeatedly said.."Well".....then paused and stated "I can't do that to my family" then went back to saying "Well".... Pt placed on suicide precautions at this time. Petition filled out and placed in patient's chart documenting exactly what she told clinical social work aide. Consult placed to psychiatry to evaluate.
--- NOTE | 2021-03-19 14:32 | P.PN ---
Subjective Progress Note Date: 03/19/21 Hospital Course: Patient is a very pleasant 75-year-old female with a past medical history of hypertension and hyperlipidemia. She presented to the emergency department on 03/14/21 status post mechanical fall at home. She underwent full workup and was found to have an acute left distal clavicle fracture of her left shoulder and left hip x-ray revealed an acute fracture of the intertrochanteric region of the left femur. In addition patient was noted to have leukocytosis with a WBC count of 11.4 and hyponatremia with sodium of 124. She was admitted under orthopedic surgery team and we were consulted for continued medical management and nephrology was consulted for management of hyponatremia. Patient is status post trochanteric nailing of left hip secondary to comminuted intertrochanteric/subtrochanteric left hip fracture. Surgical procedure completed by Dr. Adams on 03/17/21. Physical exam: Patient seen and fully evaluated at bedside this morning. She is postoperative day 2. Patient reports feeling "miserable". She states that she does not know what to thing about going to [facility] for rehabilitation. She denies having any headache, lightheadedness, dizziness, chest pain, palpitations, or experiencing any numbness/tingling/focal weakness in her extremities. Left arm remains in sling. Postsurgical dressings to left lateral hip and thigh intact with no signs of bleeding or drainage present. Vital signs reviewed and stable. General: Nontoxic, no distress and appears stated age. Derm: Skin warm and dry, normal coloration for ethnicity. Head: Atraumatic, normocephalic and symmetric. Eyes: EOMs intact, no lid lag, and anicteric sclera Mouth: no lip lesions, mucus membranes moist Cardiovascular: regular rate and rhythm with normal S1S2, no murmur, positive posterior tibial pulses bilaterally, and cap refill < 2 seconds. Lungs: Respirations even, regular, and unlabored on room air. Lungs CTA bilaterally, no rhonchi, no rales, no wheezing, and no accessory muscle usage. Abdominal: soft, nontender to palpation, no guarding, no appreciable organomegaly Ext: No gross muscle atrophy, no edema, no contractures left arm in sling. Movement and sensation intact in all 4 extremities. Neuro: Speech clear, face symmetrical and CN II-XII grossly intact with no noted focal neuro deficits. Psych: Alert and oriented to person, place, time, and situation. Appropriate and pleasant affect. Assessment and Plan of Care: Status post trochanteric nailing of left hip secondary to comminuted intertrochanteric/subtrochanteric left hip fracture, Day 2 postop Left clavicular fracture Pain management, weightbearing, PT/OT, dressing changes, postoperative wound care and DVT prophylaxis per primary admitting orthopedic surgery team. Encourage use of incentive spirometry 10-15 times hourly while awake. Safe and supportive care. 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 Hold losartan. Holding HCTZ due to hyponatremia Depression -Resume lexapro Hyperlipidemia -Resume pravastatin. Thank you for allowing us to participate in the care of this pleasant patient. Do not hesitate to contact us with questions. Someone can be reached from the [facility] hospitalist group all hours of the day at [phone] or via [employer] serve. Objective - Vital Signs Vital signs: Vital Signs Temp 98.1 F 03/19/21 04:03 Pulse 61 03/19/21 04:03 Resp 18 03/19/21 04:03 BP 108/57 03/19/21 04:03 Pulse Ox 96 03/19/21 04:03 Intake & Output 03/18/21 03/19/21 03/19/21 18:59 06:59 18:59 Intake Total 50 700 Output Total 400 1000 Balance -350 -300 Intake: Intake, IV Titration 50 Amount ceFAZolin 2 gm In Sodium 50 Chloride 0.9% 50 ml @ 100 mls/hr IVPB Q8HR [facility] Rx# :[id number] Oral 700 Output: Urine 400 1000 Uretheral (Conrad) 500 Other: Voiding Method Indwelling Catheter - Labs CBC & Chem 7: 03/18/21 05:41 03/19/21 06:12 Labs: Abnormal Lab Results - Last 24 Hours (Table) 03/18/21 03/18/21 Range/Units 05:41 05:41 WBC 10.50 H (4.50-10.00) X 10*3/uL RBC 2.56 L (4.10-5.20) X 10*6/uL Hgb 8.6 L (12.0-15.0) g/dL Hct 25.5 L (37.2-46.3) % MCV 99.6 H (80.0-97.0) fL MCH 33.6 H (27.0-32.0) pg Anion Gap 9.20 L (10.00-18.00) mmol/L Creatinine 0.4 L (0.6-1.5) mg/dL BUN/Creatinine Ratio 23.75 H (12.00-20.00) Ratio Glucose 121 H (70-110) mg/dL Calcium 8.3 L (8.7-10.3) mg/dL Total Protein 5.0 L (6.2-8.2) g/dL Albumin 3.1 L (3.8-4.9) g/dL
[2021-03-20] MEDS: HYDROmorphone 0.5 MG/0.5 ML SYRINGE IVP PRN ×3 (00:14→06:18)
[2021-03-20 06:29] LABS: African American GFR (CKD) >90 (>60 ml/min/1.73 sqM); Anion Gap 0 mmol/L; Blood Urea Nitrogen 10 mg/dL (7-17); Calcium 8.2 mg/dL (8.4-10.2); Carbon Dioxide 32 mmol/L (22-30); Chloride 100 mmol/L (98-107); Glucose 89 mg/dL (74-99); Magnesium 1.7 mg/dL (1.6-2.3); Non-African American GFR(CKD) >90 (>60 ml/min/1.73 sqM); Sodium 132 mmol/L (137-145)
[2021-03-20] MEDS: HYDROcodone/APAP 5-325MG 1 EACH TAB PO PRN (07:47)
[2021-03-20] MEDS: polyethylene glycoL 3350 17 GM POWD.PACK PO SCH (07:47)
[2021-03-20] MEDS: HEPARIN SODIUM,PORCINE/PF 5,000 UNIT/0.5 ML SYRINGE SQ SCH (07:48)
[2021-03-20] MEDS: SENNOSIDES-DOCUSATE SODIUM 1 EACH TAB PO SCH (07:48)
[2021-03-20] MEDS ORDERED: HYDROcodone/APAP 7.5-325MG 1 EACH TAB PO PRN (08:42)
[2021-03-20] MEDS: PRAVASTATIN SODIUM 20 MG TAB PO SCH (08:57)
[2021-03-20] MEDS: SODIUM CHLORIDE TAB 1 GM TAB PO SCH (08:57)
--- NOTE | 2021-03-20 09:56 | P.PN ---
Subjective Patient is seen in follow-up for hyponatremia. Has received Samsca this admission. Sodium level 132 today. Maintained on sodium chloride tablet daily. Blood pressure stable. Nonoliguric. Oral intake poor. No vomiting or diarrhea. Vital signs are stable. General: The patient appeared well nourished and normally developed. HEENT: Head exam is unremarkable. LUNGS: Breath sounds decreased. HEART: Rate and Rhythm are regular. ABDOMEN: Soft, no distention. EXTREMITITES: No edema. Objective - Vital Signs Vital signs: Vital Signs Temp 98.8 F 03/20/21 03:51 Pulse 74 03/20/21 03:51 Resp 18 03/20/21 03:51 BP 134/73 03/20/21 03:51 Pulse Ox 96 03/20/21 03:51 Intake & Output 03/19/21 03/20/21 03/20/21 18:59 06:59 18:59 Intake Total 1016 400 Output Total 350 500 Balance 666 -100 Intake: Oral 1016 400 Output: Urine 350 500 Uretheral (Conrad) 350 Other: Voiding Method Indwelling Catheter Indwelling Catheter - Labs CBC & Chem 7: 03/18/21 05:41 03/20/21 05:24 Labs: Abnormal Lab Results - Last 24 Hours (Table) 03/20/21 Range/Units 05:24 Sodium 132 L (137-145) mmol/L Carbon Dioxide 32 H (22-30) mmol/L Creatinine 0.46 L (0.52-1.04) mg/dL Calcium 8.2 L (8.4-10.2) mg/dL Assessment and Plan Plan: Assessment: 1. 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 No improvement IV hydration. Status post Samsca given 03/16/2021. Now on oral sodium chloride. Sodium level 132 today. Urine sodium less than 20 and urine osmolality 486. TSH normal. Cortisol level not low. 2. Acute left femur and clavicle fracture. Orthopedic surgery following. 3. Benign hypertension. Stable. Plan: 1500 mL fluid restriction. Maintain ensure. Maintain sodium chloride tab. Continue to hold thiazide diuretic. Repeat labs in the morning.
[2021-03-20 11:38] VITALS: BMI 20.2
[2021-03-20 12:47] VITALS: BP 128/71; PULSE 71; RESP 17; TEMP 97.7
--- NOTE | 2021-03-20 13:13 | P.PN ---
Subjective Progress Note Date: 03/20/21 Hospital Course: Patient is a very pleasant 75-year-old female with a past medical history of hypertension and hyperlipidemia. She presented to the emergency department on 03/14/21 status post mechanical fall at home. She underwent full workup and was found to have an acute left distal clavicle fracture of her left shoulder and left hip x-ray revealed an acute fracture of the intertrochanteric region of the left femur. In addition patient was noted to have leukocytosis with a WBC count of 11.4 and hyponatremia with sodium of 124. She was admitted under orthopedic surgery team and we were consulted for continued medical management and nephrology was consulted for management of hyponatremia. Patient is status post trochanteric nailing of left hip secondary to comminuted intertrochanteric/subtrochanteric left hip fracture. Surgical procedure completed by Dr. Adams on 03/17/21. Physical exam: Patient seen and fully evaluated at bedside this morning. She is postoperative day 3. She was sitting up in chair at bedside. Patient appeared in much better spirits today. She reports she was just upset yesterday as she states "I just felt rushed, and I don't like that feeling." Patient awaiting to be evaluated by psychiatry. Once cleared by psychiatry, the patient is medically clear for discharge to [facility] for rehabilitation as previously arranged by orthopedic team. She denies having any headache, lightheadedness, dizziness, chest pain, palpitations, or experiencing any numbness/tingling/focal weakness in her extremities. Left arm remains in sling. Postsurgical dressings to left lateral hip and thigh intact with no signs of bleeding or drainage present. Vital signs reviewed and stable. General: Nontoxic, no distress and appears stated age. Derm: Skin warm and dry, normal coloration for ethnicity. Postoperative dressing left hip/left lateral thigh, clean dry and intact with no signs of bleeding or drainage. Head: Atraumatic, normocephalic and symmetric. Eyes: EOMs intact, no lid lag, and anicteric sclera Mouth: no lip lesions, mucus membranes moist Cardiovascular: regular rate and rhythm with normal S1S2, no murmur, positive posterior tibial pulses bilaterally, and cap refill < 2 seconds. Lungs: Respirations even, regular, and unlabored on room air. Lungs CTA bilaterally, no rhonchi, no rales, no wheezing, and no accessory muscle usage. Abdominal: soft, nontender to palpation, no guarding, no appreciable organomegaly Ext: No gross muscle atrophy, no edema, no contractures left arm in sling. Movement and sensation intact in all 4 extremities. Neuro: Speech clear, face symmetrical and CN II-XII grossly intact with no noted focal neuro deficits. Psych: Alert and oriented to person, place, time, and situation. Appropriate and pleasant affect. Assessment and Plan of Care: Status post trochanteric nailing of left hip secondary to comminuted intertrochanteric/subtrochanteric left hip fracture, Day 2 postop Left clavicular fracture Pain management, weightbearing, PT/OT, dressing changes, postoperative wound care and DVT prophylaxis per primary admitting orthopedic surgery team. Encourage use of incentive spirometry 10-15 times hourly while awake. Safe and supportive care. 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 -Patient is being discharged by orthopedic surgery to [facility] for subacute rehab, prescription sent for sodium chloride tablets and for patient to have repeat BMP in 3 days after discharge. BMP results to be sent to nephrology to follow up. Patient to follow-up with nephrology in 1 week. -Hydrochlorothiazide discontinued Suicidal ideations without a plan -Psychiatry consulted -Suicide precautions were placed HTN -BP on low side. Hold losartan. Holding HCTZ due to hyponatremia Depression -Resume lexapro Hyperlipidemia -Resume pravastatin. Thank you for allowing us to participate in the care of this pleasant patient. Do not hesitate to contact us with questions. Someone can be reached from the [facility] hospitalist group all hours of the day at [phone] or via perfect serve. Objective - Vital Signs Vital signs: Vital Signs Temp 98.8 F 03/20/21 03:51 Pulse 74 03/20/21 03:51 Resp 18 03/20/21 03:51 BP 134/73 03/20/21 03:51 Pulse Ox 96 03/20/21 03:51 Intake & Output 03/19/21 03/20/21 03/20/21 18:59 06:59 18:59 Intake Total 1016 400 Output Total 350 500 Balance 666 -100 Intake: Oral 1016 400 Output: Urine 350 500 Uretheral (Conrad) 350 Other: Voiding Method Indwelling Catheter Indwelling Catheter - Labs CBC & Chem 7: 03/18/21 05:41 03/20/21 05:24 Labs: Abnormal Lab Results - Last 24 Hours (Table) 03/19/21 03/20/21 Range/Units 06:12 05:24 Sodium 132 L (137-145) mmol/L Carbon Dioxide 32 H (22-30) mmol/L Anion Gap 6.50 L (10.00-18.00) mmol/L Creatinine 0.4 L 0.46 L (0.6-1.5) mg/dL BUN/Creatinine Ratio 22.50 H (12.00-20.00) Ratio Calcium 8.3 L 8.2 L (8.7-10.3) mg/dL
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
--- NOTE | 2021-03-20 14:12 | P.PN ---
Progress Note - Text Progress Note Date: 03/20/21 Diagnosis: Status post IM nail left intertrochanteric/subtrochanteric femur fracture Patient was evaluated today at bedside, she is resting comfortably. She states the pain is slightly better after having increasing her oral medication. She was actually visualized up in a chair today and very minimal discomfort. Both internal medicine and psychology have signed off of the patient. She is being discharged to with subcu rehab today. Patient will follow-up in the outpatient setting in the next 2 weeks.
--- NOTE | 2021-03-20 14:44 | P.DS ---
Providers Date of admission: 03/14/21 18:48 Expected date of discharge: 03/20/21 Attending physician: Serg Adams Consults: 03/14/21 19:49 Consult Physician Routine Consulting Provider: Dominic Mistry Consult Reason/Comments: Preoperative clearance Do you want consulting provider notified?: Already Contacted 03/16/21 09:39 Consult Physician Routine Consulting Provider: Andrade Garcia Consult Reason/Comments: hyponatremia Do you want consulting provider notified?: Yes 03/19/21 14:01 Consult Physician Routine Consulting Provider: Psychiatry - [facility] Psychiatry Consult Reason/Comments: suicidal ideations Do you want consulting provider notified?: Yes Primary care physician: Stated None Hospital Course: Date of admission: 03/16/2021 Date of discharge: 03/20/2021 Admission diagnosis: left intertrochanteric/subtrochanteric femur fracture Discharge diagnosis: Same Attending physician: Dr. Adams Surgical procedures: Left hip IM nail Brief history: Patient is a 75-year-old female with a history of left intertrochanteric/trochanteric femur fracture status post fall. At this point patient has failed conservative treatment measures and has opted to proceed with a elective left hip IM nail. Hospital course: Details of patient's surgery can be found in operative report. Patient tolerated the procedure well and was subsequently transported to orthopedic floor. Patient's orthopeidc and medical care was provided daily. Patient had daily laboratory tests performed for evaluation of overall blood counts. Patient had daily physical therapy to include strengthening range of motion as well as education with walker ambulation. Patient was treated with heparin for their postoperative DVT prophylaxis during their inpatient stay. Patient was noted to have a relatively uneventful postoperative course. Patient reported satisfactory pain control with oral pain medications by postoperative day 3. Patient showed satisfactory progress with physical therapy. Patient moved steadily through the program and had no difficulty meeting the goals by postoperative day 3. Given patient's otherwise satisfactory course and having met physical therapy goals, plan is to discharge patient to [facility] for rehab on postoperative day 3. Discharge condition/disposition: Patient will be discharged to [facility] for rehab in stable condition. Discharge medications: Instructions are given on resumption of patient's normal daily medications per primary care recommendation, in addition patient will be prescribed [place]; Lovenox; senna. Discharge instructions: 1. Wound care and infection precautions, keep incision dry and covered while showering, no lotions, creams, moisturizers. No soaking, tubs, pools, hottubs. Do not scrub over the incision. 2. Weight-bear as tolerated with walker / cane until follow-up. 3. Ice and elevate when necessary. Do not exceed 20 minutes per hour with ice pack.. 4. nursing care and PT 5. Pain meds and anticoagulants per prescription. 6. Pain medication has potential to cause constipation. Increase oral fluid and fiber intake. Contact primary care provider if you have not had a bowel movement within 48 hours after discharge 7. No anti-inflammatory medication until discussed at first post operative visit, this including Motrin, Aleve, Mobic, Diclofenac. 8. Follow up in office at 2 weeks postop with Segundo See PA-C / Natan Pepe PA-C 9. Follow up with your primary care doctor 7-10 days after discharge. 10. Contact [facility] with any questions, . Keep incision clean, dry, intact. Silver foam dressing may be removed on 03/25/2021. Follow up in office in 2 weeks for staple removal Medications: [place] 5 mg/325 mg; senna; Lovenox Assessment: left intertrochanteric/trochanteric femur fracture Procedures: left hip IM nail Patient Condition at Discharge: Stable Plan - Discharge Summary Discharge Rx Participant: No New Discharge Prescriptions: New HYDROcodone/APAP 7.5-325MG [[place] 7.5] 1 each PO Q6HR PRN #28 tab PRN Reason: Pain Sennosides [Senna] 8.6 mg PO DAILY #20 tablet Enoxaparin [Lovenox] 30 mg SQ DAILY #21 each Sodium Chloride Tab 1 gm PO DAILY tab Continue LORazepam [Ativan] 0.5 mg PO BID PRN #6 tab PRN Reason: Anxiety Pravastatin Sodium [Pravachol] 20 mg PO DAILY Escitalopram [Lexapro] 10 mg PO HS Discontinued Losartan/Hydrochlorothiazide [Losartan-Hctz 100-25 mg Tab] 1 tab PO DAILY Discharge Medication List Escitalopram [Lexapro] 10 mg PO HS 03/14/21 [History] Pravastatin Sodium [Pravachol] 20 mg PO DAILY 03/14/21 [History] Enoxaparin [Lovenox] 30 mg SQ DAILY #21 each 03/19/21 [Rx] Sennosides [Senna] 8.6 mg PO DAILY #20 tablet 03/19/21 [Rx] HYDROcodone/APAP 7.5-325MG [[place] 7.5] 1 each PO Q6HR PRN #28 tab 03/20/21 [Rx] LORazepam [Ativan] 0.5 mg PO BID PRN #6 tab 03/20/21 [Rx] Sodium Chloride Tab 1 gm PO DAILY tab 03/20/21 [Rx] Follow up Appointment(s)/Referral(s): Juventino See PAC [PHYSICIAN LANGUAGE PATH] - 2 Weeks Andrade Garcia DO [STAFF PHYSICIAN] - 1 Week (hyponatremia) Yobani Mejia [STAFF PHYSICIAN] - 1 Week Ambulatory/Diagnostic Orders: Basic Metabolic Panel [LAB.AMB] Time Frame: 3 Days, Location: None Selected Activity/Diet/Wound Care/Special Instructions: Discharge instructions: 1. Wound care and infection precautions, keep incision dry and covered while showering, no lotions, creams, moisturizers. No soaking, tubs, pools, hottubs. Do not scrub over the incision. 2. Weight-bear as tolerated with walker / cane until follow-up. 3. Ice and elevate when necessary. Do not exceed 20 minutes per hour with ice pack.. 4. nursing care and PT 5. Pain meds and anticoagulants per prescription. 6. Pain medication has potential to cause constipation. Increase oral fluid and fiber intake. Contact primary care provider if you have not had a bowel movement within 48 hours after discharge 7. No anti-inflammatory medication until discussed at first post operative visit, this including Motrin, Aleve, Mobic, Diclofenac. 8. Follow up in office at 2 weeks postop with Segundo See PA-C / Natan Pepe PA-C 9. Follow up with your primary care doctor 7-10 days after discharge. 10. Contact [facility] with any questions, . Keep incision clean, dry, intact. Silver foam dressing may be removed on 03/25/2021. Follow up in office in 2 weeks for staple removal Medications: [place] 5 mg/325 mg; senna; Lovenox Discharge Disposition: TRANSFER TO SNF/ECF
== END 2021-03-20 16:23 | DRG 481 ==
LOC: EC 17:51 → 5NMEDONC 18:48
PROVIDERS: ADMIT Orthopaedic Surgery; ATTEND Orthopaedic Surgery
PROC: 3E0234Z Introduction of Serum, Toxoid and Vaccine into Muscle, Percutaneous Approach (ICD-10-PCS; 2021-03-14)
PROC: 0HQ0XZZ Repair Scalp Skin, External Approach (ICD-10-PCS; 2021-03-14)
PROC: 30233N1 Transfusion of Nonautologous Red Blood Cells into Peripheral Vein, Percutaneous Approach (ICD-10-PCS; 2021-03-17)
PROC: 0QSC06Z Reposition Left Lower Femur with Intramedullary Internal Fixation Device, Open Approach (ICD-10-PCS; principal; 2021-03-17 07:30)
DX: S72.142A Displaced intertrochanteric fracture of left femur, initial encounter for closed fracture (principal); E22.2 Syndrome of inappropriate secretion of antidiuretic hormone; D62 Acute posthemorrhagic anemia; R45.851 Suicidal ideations; S01.01XA Laceration without foreign body of scalp, initial encounter; E78.5 Hyperlipidemia, unspecified; D72.829 Elevated white blood cell count, unspecified; S42.032A Displaced fracture of lateral end of left clavicle, initial encounter for closed fracture; Z23 Encounter for immunization; S72.22XA Displaced subtrochanteric fracture of left femur, initial encounter for closed fracture; Z20.822 Contact with and (suspected) exposure to COVID-19; T50.2X5A Adverse effect of carbonic-anhydrase inhibitors, benzothiadiazides and other diuretics, initial encounter; I10 Essential (primary) hypertension; G44.1 Vascular headache, not elsewhere classified; F32.A Depression, unspecified; F41.9 Anxiety disorder, unspecified; I83.90 Asymptomatic varicose veins of unspecified lower extremity; M19.90 Unspecified osteoarthritis, unspecified site; Z90.89 Acquired absence of other organs; Z79.899 Other long term (current) drug therapy; Z87.891 Personal history of nicotine dependence; Z98.51 Tubal ligation status; Z90.49 Acquired absence of other specified parts of digestive tract; Z87.39 Personal history of other diseases of the musculoskeletal system and connective tissue; Z90.722 Acquired absence of ovaries, bilateral; Z90.79 Acquired absence of other genital organ(s); Z90.710 Acquired absence of both cervix and uterus; Z87.42 Personal history of other diseases of the female genital tract; Z87.448 Personal history of other diseases of urinary system; Z98.890 Other specified postprocedural states; W01.0XXA Fall on same level from slipping, tripping and stumbling without subsequent striking against object, initial encounter; Y92.000 Kitchen of unspecified non-institutional (private) residence as the place of occurrence of the external cause; Z91.013 Allergy to seafood
CPT/HCPCS: 12002; 36415; 70450; 71045; 72125; 73502; 80048; 80053; 82533; 83735; 83930; 83935; 84300; 84443; 85025; 85027; 85610; 85730; 86850; 86900; 86901; 86920; 87635; 90471; 90715; 93005; 96374; 96376; 99285

== ENCOUNTER → 2021-06-09 | Outpatient (CLI) | payer MEDICARE, MEDICAID ==
[2021-06-09 23:05] LABS: African American GFR (CKD) 106.6 (60.0-200.0); Anion Gap 10.9 mmol/L (10.00-18.00); BUN/Creat Ratio 26.22 Ratio (12.00-20.00); Calcium 9.4 mg/dL (8.7-10.3); Carbon Dioxide 27.1 mmol/L (20.0-27.5); Potassium 4.4 mmol/L (3.5-5.5)
== END | disposition home or self-care (01) ==
LOC: LABWHC1 13:50
PROVIDERS: ATTEND Nurse Practitioner Family
DX: E87.1 Hypo-osmolality and hyponatremia (principal)
CPT/HCPCS: 36415; 80048

== ENCOUNTER → 2021-06-20 | Outpatient (CLI) | payer MEDICARE, MEDICAID ==
[2021-06-20 22:38] LABS: African American GFR (CKD) 102.6 (60.0-200.0); BUN/Creat Ratio 19.5 Ratio (12.00-20.00); Blood Urea Nitrogen 11.7 mg/dL (9.0-27.0); Calcium 9.2 mg/dL (8.7-10.3); Non-African American GFR(CKD) 88.5 (60.0-200.0); Potassium 3.9 mmol/L (3.5-5.5)
== END | disposition home or self-care (01) ==
LOC: LABWHC1 13:31
PROVIDERS: ATTEND Nurse Practitioner Family
DX: E87.1 Hypo-osmolality and hyponatremia (principal)
CPT/HCPCS: 36415; 80048

== ENCOUNTER → 2021-07-16 | Outpatient (CLI) | payer MEDICARE, MEDICAID ==
--- NOTE | 2021-07-17 19:12 | MM ---
Reason for Exam: Screening (asymptomatic). Last mammogram was performed 3 year(s) and 7 month(s) ago. Patient History: Menarche at age 12. First Full-Term at age 22. Left ovary removed at age 56. Right ovary removed at age 56. Hysterectomy at age 56. Postmenopausal. Estrogen for 8 months. Maternal cousin had breast cancer at or over age 50. Risk Values: Larissa 5 year model risk: 1.6%. NCI Lifetime model risk: 3.0%. Prior Study Comparison: 07/02/2008 Bilateral Screening Mammogram, [facility]. 06/27/2010 Bilateral Screening Mammogram, [facility]. 01/07/2018 Bilateral Screening Mammogram, [facility]. Tissue Density: The breast tissue is heterogeneously dense. This may lower the sensitivity of mammography. Findings: Analyzed By CAD. There are benign bilateral secretory calcifications. No significant change from prior exams. Overall Assessment: Benign, BI-RAD 2 Management: Screening Mammogram of both breasts in 1 year. Annual clinical breast exam by your physician. Also, monthly self breast exams are recommended. A negative mammogram should not preclude additional follow-up of suspicious palpable abnormalities. Electronically signed and approved by: Carlos Segovia M.D. Radiologist
== END | disposition home or self-care (01) ==
LOC: RADMAMWWP 15:14
PROVIDERS: ATTEND Family Medicine
DX: Z12.31 Encounter for screening mammogram for malignant neoplasm of breast (principal); Z78.0 Asymptomatic menopausal state; Z80.3 Family history of malignant neoplasm of breast
CPT/HCPCS: 77063; 77067

== ENCOUNTER → 2021-07-28 | Outpatient (CLI) | payer MEDICARE, MEDICAID ==
--- NOTE | 2021-07-29 19:01 | BD ---
EXAMINATION TYPE: Axial Bone Density DATE OF EXAM: 07/28/2021 CLINICAL HISTORY: 76 year old Female. ICD-10 CODE: M18.9 OSTEOARTHRITIS Height: 63.5 Weight: 130.9 FRAX RISK QUESTIONS: Alcohol (3 or more units per day): no Family History (Parent hip fracture): no Glucocorticoids (More than 3mos): no (Ex: prednisone, prednisolone, methylprednisolone, dexamethasone, and hydrocortisone). History of Fracture in Adulthood: yes Secondary Osteoporosis: 1. Type 1 Diabetes: no 2. Hyperthyroidism: no 3. Menopause before 45: no 4. Malnutrition: no 5. Chronic liver disease: no Rheumatoid Arthritis: no Current Tobacco Use: no RISK FACTORS HISTORY OF: Hip Fracture (Right/Left): left When: Surgery to Spine/Hip(right/left)/Wrist (right/left): left hip When: Family History of Osteoporosis: no Active: no Diet low in dairy products/other sources of calcium: yes Postmenopausal woman: yes Lost more than 2 inches in height since high school: yes MEDICATIONS: Additional History: EXAM MEASUREMENTS: Bone mineral densitometry was performed using the [employer] System. Bone mineral density as measured about the Lumbar spine is: ----- L1-L4(G/cm2): 0.923 T Score Values are as follows: ----- L1: -2.2 ----- L2: -2.2 ----- L3: -2.2 ----- L4: -2.2 ----- L1-L4: -2.1 Bone mineral density has: decreased -10.8 % since study of: 2017 Bone mineral density about the R hip (g/cm2): 0.782 T Score values are as follows: -----R Neck: -1.8 -----R Total: -2.7 Bone mineral density has: decreased -9.4 % since study of: 2017 FRAX%s: The graph provided illustrates a 6.7% chance for a major osteoporotic fx and a 2.2% chance fo r the hips probability for fx in 10 years time. IMPRESSION: Osteoporosis (T Score less than -2.5). There is increased fracture risk and therapy is usually indicated based on age. Re-Screen 1-2 years. NOTE: T-SCORE=SD OF THE YOUNG ADULT MEAN.
== END | disposition home or self-care (01) ==
LOC: RADBDWWP 16:33
PROVIDERS: ATTEND Family Medicine
DX: Z13.820 Encounter for screening for osteoporosis (principal); M81.0 Age-related osteoporosis without current pathological fracture; M85.89 Other specified disorders of bone density and structure, multiple sites
CPT/HCPCS: 77080

== ENCOUNTER → 2021-09-17 | Outpatient (CLI) | payer MEDICARE, MEDICAID ==
[2021-09-17 18:14] LABS: African American GFR (CKD) >90 (>60 ml/min/1.73 sqM); Blood Urea Nitrogen 12 mg/dL (7-17); Non-African American GFR(CKD) 89 (>60 ml/min/1.73 sqM)
--- NOTE | 2021-09-17 21:08 | CT ---
EXAMINATION TYPE: CT chest wo con CT DLP: 145.3 mGycm, Automated exposure control for dose reduction was used. DATE OF EXAM: 09/17/2021 6:35 PM COMPARISON: CT chest abdomen pelvis same day. 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 Sagittal and coronal reformats were created for review. Contrast used: mL of , none. Oral contrast used: none. FINDINGS: LUNGS/ PLEURA: LUNGS/ PLEURA: No evidence of focal consolidation, pneumothorax or pleural effusion. S cattered ground glass opacities are seen throughout the lungs most pronounced peripherally and in the lung bases. Overall these findings are worse or progressed from prior in 2020. There are trace bilat eral pleural effusions. AIRWAY: Patent and unremarkable. HEART: Size within normal limits. Mitral valve annular calcifications are present. MEDIASTINUM: No gross evidence of adenopathy. VASCULATURE: No aortic aneurysm. MUSCULOSKELETAL: No acute osseous abnormalities SOFT TISSUES/LYMPH NODES: Unremarkable. LOWER NECK: No significant findings. IMPRESSION: 1. No evidence for lymphadenopathy 2. Scattered groundglass opacities throughout the lungs most pronounced peripherally and in the lung bases. Correlate for atypical pneumonia. Attention on short-term follow-up imaging. 3. Trace bilateral pleural effusions may be secondary to #2
--- NOTE | 2021-09-17 21:09 | CT ---
EXAMINATION TYPE: CT ChestAbdPelvis w con CT DLP: 602.90 mGycm, Automated exposure control for dose reduction was used. DATE OF EXAM: 09/17/2021 6:41 PM COMPARISON: CT chest abdomen pelvis 09/09/2019. CT chest same day without contrast. 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 Two-dimensional cor onal and sagittal reconstructions were obtained. Contrast used:100 ml mL of Isovue 300 with IV Contrast, Oral contrast used: with Oral Contrast Findings: CHEST: LUNGS/ PLEURA: No evidence of focal consolidation, pneumothorax or pleural effusion. Scattered ground glass opacities are seen throughout the lungs most pronounced peripherally and in the lung bases. Ov erall these findings are worse or progressed from prior in 2020. There are trace bilateral pleural ef fusions. AIRWAY: Patent and unremarkable. HEART: Size within normal limits mild mitral valve annular calcifications. MEDIASTINUM: No gross evidence of adenopathy. VASCULATURE: No aortic aneurysm. No central pulmonary embolus identified. MUSCULOSKELETAL: No acute osseous abnormalities. SOFT TISSUES/LYMPH NODES: Unremarkable. LOWER NECK: No significant findings. ABDOMEN: ABDOMEN LIVER: Unremarkable GALLBLADDER AND BILE DUCTS: Unremarkable. PANCREAS: Unremarkable. SPLEEN: Unremarkable. ADRENAL GLANDS: Unremarkable. KIDNEYS AND URETERS: No evidence of hydronephrosis or renal calculus. The ureters are unremarkable. PELVIS BLADDER: Foci of gas within the bladder lumen. REPRODUCTIVE: Unremarkable. ABDOMEN & PELVIS STOMACH AND BOWEL: Scattered clonic diverticula present. No evidence of bowel obstruction. PERITONEUM: No evidence of pneumoperitoneum or free fluid. VASCULATURE: No evidence of aortic aneurysm. MUSCULOSKELETAL: No acute osseous abnormalities, there is left hip fixation hardware which appears in tact. No evidence for acute fracture. Mild multilevel disc degeneration changes are seen throughout t he spine. LYMPH NODES: No gross evidence for lymphadenopathy. SOFT TISSUE/ABDOMINAL WALL: Unremarkable IMPRESSION: 1. No evidence for lymphadenopathy. 2. Scattered groundglass opacities throughout the lungs most pronounced peripherally and in the lung bases. Correlate for atypical pneumonia. Attention on short-term follow-up imaging. 3. Trace bilateral pleural effusions may be secondary to #2 4. Clonic diverticulosis. 5. Foci of gas within the bladder lumen correlate with recent instrumentation and urinalysis to rule out cystitis.
== END | disposition home or self-care (01) ==
LOC: RADCTMAIN 16:51
PROVIDERS: ATTEND Family Medicine
DX: C85.90 Non-Hodgkin lymphoma, unspecified, unspecified site (principal); R91.8 Other nonspecific abnormal finding of lung field; J90 Pleural effusion, not elsewhere classified; K57.30 Diverticulosis of large intestine without perforation or abscess without bleeding
CPT/HCPCS: 82565; 84520; 71250; 71260; 74177; 36415; Q9967

== ENCOUNTER → 2021-10-01 | Outpatient (CLI) | payer MEDICARE, MEDICAID ==
--- NOTE | 2021-10-01 14:51 | XR ---
EXAMINATION TYPE: XR chest 2V DATE OF EXAM: 10/01/2021 COMPARISON: 03/14/2021 TECHNIQUE: PA and lateral views submitted. HISTORY: Cough FINDINGS: A bilateral lower lobe infiltrate and small effusion. Heart size normal. Calcified lymph nodes in the hilum. Underlying COPD noted. Diffuse osteopenia. Elevation of the left clavicle likely chronic with arthropathy of the AC joint. No pneumothorax. Hypertrophic changes of the spine. IMPRESSION: 1. Bilateral lower lobe infiltrate with small effusion. Findings could be on the basis of underlying pneumonia with interstitial pneumonitis. Mild venous congestion not excluded. 2. COPD.
== END ==
LOC: RAD 14:29
PROVIDERS: ATTEND Family Medicine
DX: J18.9 Pneumonia, unspecified organism (principal); Z91.013 Allergy to seafood
CPT/HCPCS: 71046

== ENCOUNTER → 2021-10-28 | Outpatient (CLI) | payer MEDICARE, MEDICAID ==
[2021-10-28 18:30] LABS: Basophils # (A) 0.03 X 10*3/uL (0.00-0.10); Basophils % (A) 0.7 %; Eosinophils % (A) 4.9 %; HCT 32.3 % (37.2-46.3); HGB 10.7 g/dL (12.0-15.0); Immature Grans, Automated 0.2 %; Lymphocytes # (A) 0.63 X 10*3/uL (0.90-5.00); Lymphocytes % (A) 15.4 %; MCH 33.4 pg (27.0-32.0); MCHC 33.1 g/dL (32.0-37.0); MCV 100.9 fL (80.0-97.0); Monocytes # (A) 0.59 X 10*3/uL (0.20-1.00); Monocytes % (A) 14.5 %; NRBC Per 100 WBC 0 /100 WBCS (0.0-0.0); Neutrophils # (A) 2.62 X 10*3/uL (1.80-7.70); Neutrophils % (A) 64.3 %; Platelet Count 224 X 10*3/uL (140-440); RDW 13.2 % (11.5-14.5); WBC 4.08 X 10*3/uL (4.50-10.00)
[2021-10-28 18:39] LABS: African American GFR (CKD) 105.8 (60.0-200.0); Albumin 3.5 g/dL (3.8-4.9); Albumin/Globulin Ratio 0.94 (1.60-3.17); Anion Gap 6.9 mmol/L (10.00-18.00); BUN/Creat Ratio 19.03 Ratio (12.00-20.00); Blood Urea Nitrogen 10.2 mg/dL (9.0-27.0); Calcium 8.7 mg/dL (8.7-10.3); Carbon Dioxide 28.6 mmol/L (20.0-27.5); Globulin 3.7 g/dL (1.6-3.3); Magnesium 2.1 mg/dL (1.5-2.4); Non-African American GFR(CKD) 91.2 (60.0-200.0); Potassium 4.3 mmol/L (3.5-5.5); Total Bilirubin 0.4 mg/dL (0.30-1.20); Total Protein 7.2 g/dL (6.2-8.2)
== END | disposition home or self-care (01) ==
LOC: LABWHC1 13:23
PROVIDERS: ATTEND Nurse Practitioner Family
DX: E83.42 Hypomagnesemia (principal)
CPT/HCPCS: 36415; 80053; 83735; 85025

== ENCOUNTER → 2021-11-12 | Outpatient (CLI) | payer MEDICARE, MEDICAID ==
[2021-11-12 18:02] LABS: Basophils # (A) 0.05 X 10*3/uL (0.00-0.10); Eosinophils # (A) 0.11 X 10*3/uL (0.04-0.35); Eosinophils % (A) 2.1 %; HCT 37.8 % (37.2-46.3); HGB 12.5 g/dL (12.0-15.0); Immature Grans, Automated 0.2 %; Lymphocytes # (A) 0.64 X 10*3/uL (0.90-5.00); Lymphocytes % (A) 12.2 %; MCH 33.5 pg (27.0-32.0); MCHC 33.1 g/dL (32.0-37.0); MCV 101.3 fL (80.0-97.0); Mean Platelet Volume 9.7 fL (9.5-12.2); Monocytes % (A) 11.4 %; NRBC Per 100 WBC 0 /100 WBCS (0.0-0.0); Neutrophils # (A) 3.85 X 10*3/uL (1.80-7.70); Neutrophils % (A) 73.1 %; Platelet Count 250 X 10*3/uL (140-440); RBC 3.73 X 10*6/uL (4.10-5.20); WBC 5.26 X 10*3/uL (4.50-10.00)
[2021-11-12 18:17] LABS: ALT 16 U/L (8-44); AST 32 U/L (13-35); African American GFR (CKD) 105.1 (60.0-200.0); Albumin 3.7 g/dL (3.8-4.9); Albumin/Globulin Ratio 1.04 (1.60-3.17); Alkaline Phosphatase 59 U/L (41-126); BUN/Creat Ratio 20.88 Ratio (12.00-20.00); Blood Urea Nitrogen 11.4 mg/dL (9.0-27.0); Calcium 8.9 mg/dL (8.7-10.3); Carbon Dioxide 29.8 mmol/L (20.0-27.5); Chloride 97 mmol/L (96-109); Chol/HDL Ratio 2.74 Ratio; Globulin 3.6 g/dL (1.6-3.3); Glucose 87 mg/dL (70-110); LDL Cholesterol,Calculated 81.4 mg/dL (0.0-131.0); Non-African American GFR(CKD) 90.7 (60.0-200.0); Potassium 4.6 mmol/L (3.5-5.5); Sodium 133 mmol/L (135-145); Total Protein 7.3 g/dL (6.2-8.2); VLDL Calculation 16.36 mg/dL (5.00-40.00)
== END | disposition home or self-care (01) ==
LOC: LABWHC1 10:23
PROVIDERS: ATTEND Internal Medicine Interventional Cardiology
DX: E78.2 Mixed hyperlipidemia (principal); E87.1 Hypo-osmolality and hyponatremia; R79.9 Abnormal finding of blood chemistry, unspecified
CPT/HCPCS: 36415; 80053; 80061; 85025

== ENCOUNTER → 2022-05-08 | Outpatient (CLI) | payer MEDICARE, MEDICAID | END | disposition home or self-care (01) | LOC: LABWHC1 14:28 | PROVIDERS: ATTEND Internal Medicine | DX: E87.1 Hypo-osmolality and hyponatremia (principal) | CPT/HCPCS: 36415; 83935; 84300; 84443 ==

== ENCOUNTER → 2022-05-18 | Outpatient (CLI) | payer MEDICARE, MEDICAID | END | disposition home or self-care (01) | LOC: LABWHC1 13:38 | PROVIDERS: ATTEND Internal Medicine | DX: E87.1 Hypo-osmolality and hyponatremia (principal) | CPT/HCPCS: 36415 ==

== ENCOUNTER → 2022-06-01 | Outpatient (CLI) | payer MEDICARE, MEDICAID ==
[2022-06-01 09:32] LABS: African American GFR (CKD) >90 (>60 ml/min/1.73 sqM); Blood Urea Nitrogen 16 mg/dL (7-17); Non-African American GFR(CKD) >90 (>60 ml/min/1.73 sqM)
--- NOTE | 2022-06-01 10:33 | CT ---
EXAMINATION TYPE: CT chest w con CT DLP: 399 mGycm, Automated exposure control for dose reduction was used. DATE OF EXAM: 06/01/2022 10:14 AM COMPARISON: CT chest abdomen pelvis 09/17/2021, CT chest 09/17/2021. CLINICAL INDICATION:Female, 76 years old with history of R91.8 OTHER NONSPECIFIC ABNORMAL FINDING OF LUNG F; PHH, Lymphoma follow up TECHNIQUE: Multiple axial images were obtained through the chest following the administration of 100 cc of Isovue 300. FINDINGS: LUNGS/ PLEURA: No pleural effusion, pneumothorax, or focal consolidation. Resolution of previously de monstrated scattered groundglass opacities. No suspicious pulmonary nodule or mass. AIRWAY: Patent and unremarkable.. HEART: Size within normal limits. No pericardial effusion. MEDIASTINUM: No evidence of adenopathy. VASCULATURE: No aortic aneurysm. MUSCULOSKELETAL: No acute osseous abnormalities. No aggressive osseous lesion. SOFT TISSUES/LYMPH NODES: Unremarkable. LOWER NECK: No significant findings. UPPER ABDOMEN: No significant findings. IMPRESSION: 1. No acute thoracic process. Resolution of previous demonstrated pulmonary groundglass opacities. 2. No CT evidence for recurrent lymphoma. No pathologic lymphadenopathy.
== END | disposition home or self-care (01) ==
LOC: RADCTMAIN 08:46
PROVIDERS: ATTEND Family Medicine
DX: R91.8 Other nonspecific abnormal finding of lung field (principal)
CPT/HCPCS: 82565; 84520; 71260; 36415; Q9967

== ENCOUNTER → 2022-06-05 | Outpatient (CLI) | payer MEDICARE, MEDICAID ==
[2022-06-05 19:26] LABS: African American GFR (CKD) 82.4 (60.0-200.0); BUN/Creat Ratio 18.25 Ratio (12.00-20.00); Blood Urea Nitrogen 14.6 mg/dL (9.0-27.0); Non-African American GFR(CKD) 71.1 (60.0-200.0); Potassium 4.4 mmol/L (3.5-5.5)
[2022-06-05 20:31] LABS: Basophils # (A) 0.03 X 10*3/uL (0.00-0.10); Basophils % (A) 0.3 %; Eosinophils # (A) 0 X 10*3/uL (0.04-0.35); Eosinophils % (A) 0 %; HCT 33.7 % (37.2-46.3); HGB 11.1 g/dL (12.0-15.0); Immature Grans, Automated 0.6 %; Lymphocytes # (A) 0.44 X 10*3/uL (0.90-5.00); MCH 33.7 pg (27.0-32.0); MCHC 32.9 g/dL (32.0-37.0); MCV 102.4 fL (80.0-97.0); Mean Platelet Volume 9.1 fL (9.5-12.2); Monocytes % (A) 4.5 %; NRBC Per 100 WBC 0 /100 WBCS (0.0-0.0); Neutrophils # (A) 9.99 X 10*3/uL (1.80-7.70); Neutrophils % (A) 90.6 %; Platelet Count 293 X 10*3/uL (140-440); RBC 3.29 X 10*6/uL (4.10-5.20); RDW 13.3 % (11.5-14.5); WBC 11.03 X 10*3/uL (4.50-10.00)
[2022-06-06 02:03] LABS: INR 0.91 (0.90-1.11); Prothrombin Time 10.3 sec (9.9-11.9)
== END | disposition home or self-care (01) ==
LOC: LABPAT 12:52
PROVIDERS: ATTEND Orthopaedic Surgery
DX: Z01.812 Encounter for preprocedural laboratory examination (principal); M16.11 Unilateral primary osteoarthritis, right hip; Z22.322 Carrier or suspected carrier of Methicillin resistant Staphylococcus aureus
CPT/HCPCS: 36415; 80048; 85025; 85610; 87070

== ENCOUNTER 2022-06-15 10:43 | Day surgery (SDC) | payer MEDICARE, MEDICAID ==
[2022-06-11 12:03] VITALS: BMI 26.4
--- NOTE | 2022-06-14 22:17 | HP ---
HISTORY AND PHYSICAL DATE OF SCHEDULED SURGERY: 06/15/2022. HISTORY OF PRESENT ILLNESS: Renetta Segura is a 76-year-old patient seen with symptomatic severe right hip osteoarthritis. We discussed options for treatment. She elected to proceed with direct anterior right total hip arthroplasty. Consent regarding the procedure was obtained. We obtained cardiac clearance by Dr. Smart and medical clearance by Dr. Malone. PAST MEDICAL HISTORY: Cardiovascular disease, hypertension, hyperlipidemia. PAST SURGICAL HISTORY: Hysterectomy, tonsillectomy/adenoidectomy. DAILY MEDICATIONS: 1. Losartan. 2. Pravastatin. 3. Prednisone. 4. Tylenol. ALLERGIES: None. SOCIAL HISTORY: She denies tobacco use. PHYSICAL EVALUATION OF THE RIGHT HIP: She has diffuse tenderness about the hip girdle. Limited range of motion with severe pain. Positive hip impingement sign. Straight-leg raise negative. Her distal neurovascular exam is intact. . RADIOGRAPHS: Right hip radiographs reveal severe osteoarthritic changes. IMPRESSION: 1. Right hip osteoarthritis. 2. Hypertension. 3. Hyperlipidemia. PLAN: Direct anterior approach right total hip arthroplasty. MMODL / IJN: [id number] /
[~2022-06-15 10:43] MED LIST changes: +ACETAMINOPHEN TAB 500 MG TAB PO PRN; +DEXAMETHASONE SOD PHOSPHATE 4 MG/ML 1 ML VIAL IV ONE; +HYDROmorphone 0.5 MG/0.5 ML SYRINGE IVP PRN; -LACTATED RINGERS 1,000 ML IV SCH; +MELOXICAM 7.5 MG TAB PO PRN; +ONDANSETRON 4 MG/2 ML VIAL IVP ONE; +TRANEXAMIC ACID IN NACL,ISO-OS 1,000 MG in SALINE 1 100ML.BAG IVPB PRN
[2022-06-15] MEDS: LACTATED RINGERS 1,000 ML IV SCH (11:42)
[2022-06-15] MEDS ORDERED: MIDAZOLAM 2 MG/2 ML VIAL IVP ONE (11:49)
--- NOTE | 2022-06-15 12:06 | P.ANPRN ---
Procedure Note - Anesthesia - Nerve Block Performed Right Genaro Single Date of Procedure: 06/15/22 Procedure Start Time: 11:49 Procedure Stop Time: 12:00 Indication: Acute Post-Operative Pain, Requested by Surgeon Sedation Type: Sedate with meaningful contact maintained Preparation: Sterile Prep Position: Supine Catheter: None Needle Types: Facet Needle Gauge: 21 Ultrasound used to visualize needle placement: Yes Ultrasound used to observe medication spread: Yes Injectate: 0.5% Ropivacaine (see comment for volume) (15 mls +10 mls of NS) Blood Aspirated: No Pain Paresthesia on Injection Noted: No Resistance on Injection: Normal Image Stored and Saved: Yes Events: Uneventful and Well Tolerated
[2022-06-15] MEDS ORDERED: GLYCOPYRROLATE 0.2 MG/ML 2 ML VIAL ONE (13:02)
[2022-06-15] MEDS ORDERED: TRANEXAMIC ACID IN NACL,ISO-OS 1,000 MG/100 ML BAG ONE (13:02)
[2022-06-15] MEDS ORDERED: PROPOFOL 10 MG/ML 20 ML VIAL IV ONE (13:02)
[2022-06-15] MEDS ORDERED: ROCURONIUM 10 MG/ML (5 ML VIAL) IV ONE (13:02)
[2022-06-15] MEDS ORDERED: fentaNYL (PF) 50 MCG/ML 2 ML AMP ONE (13:02)
[2022-06-15] MEDS ORDERED: SUCCINYLCHOLINE CHLORIDE 200 MG/10 ML VIAL IV ONE (13:02)
[2022-06-15] MEDS ORDERED: NEOSTIGMINE 1 MG/ML 10 ML VIAL ONE (13:02)
[2022-06-15] MEDS ORDERED: LIDOCAINE 2% INJ 20 MG/ML (2 ML VIAL) ONE (13:02)
[2022-06-15] MEDS ORDERED: ceFAZolin 1,000 MG in SODIUM CHLORIDE 0.9% 1,000 ML IRRIGATION ONE (13:15)
--- NOTE | 2022-06-15 14:24 | FL ---
EXAMINATION TYPE: FL guidance operating room DATE OF EXAM: 06/15/2022 HISTORY: Fluoroscopy time Total dose area product (DAP) ): 0.3142 IMPRESSION: 1. Fluoroscopy time.
--- NOTE | 2022-06-15 14:24 | XR ---
EXAMINATION TYPE: XR Hip Limited RT DATE OF EXAM: 06/15/2022 COMPARISON: NONE HISTORY: Postop TECHNIQUE: One view submitted. FINDINGS: There is postsurgical change in near anatomic alignment. There is soft tissue edema and emphysema. IMPRESSION: 1. Postoperative change. Appears in near-anatomic alignment.
[2022-06-15] MEDS ORDERED: HYDROmorphone 0.5 MG/0.5 ML SYRINGE IVP PRN ×3 (14:25)
[2022-06-15] MEDS ORDERED: NALOXONE 0.4 MG/ML 1 ML VIAL IV PRN (14:25)
[2022-06-15] MEDS ORDERED: ONDANSETRON 4 MG/2 ML VIAL IVP PRN (14:25)
[2022-06-15] MEDS ORDERED: HYDROcodone/APAP 5-325MG 1 EACH TAB PO PRN (14:25)
--- NOTE | 2022-06-15 14:25 | P.OP ---
Date of Procedure: 06/15/22 Preoperative Diagnosis: Right hip osteoarthritis Postoperative Diagnosis: Right hip osteoarthritis Procedure(s) Performed: Direct anterior right total hip arthroplasty Implants: 1. Depuy [place] 135 standard collar KA size 12 press-fit femoral stem 2. Depuy [place] 54 mm multi hole press-fit acetabular shell 3. Depuy [place] neutral polyethylene acetabular liner 36 mm ID 54 mm OD 4. Biolox delta ceramic femoral head +1.5 36 mm Anesthesia: GETA, regional (erector spinae block) Surgeon: Serg Adams Customer Support Coordinator #1: Juventino See Estimated Blood Loss (ml): 45 Pathology: other (Femoral head) Condition: stable Disposition: PACU Indications for Procedure: 76-year-old patient seen with symptomatic right hip osteoarthritis. After treatment options were discussed, she elected to proceed with direct anterior right total hip arthroplasty. Consent regarding procedure was obtained. Operative Findings: see description of procedure Description of Procedure: The patient was taken to the operative suite. Patient underwent a general anesthetic by the department of anesthesia. Patient was then transferred to the [place] table. Patient was given preoperative IV antibiotics and TXA. Both lower extremities were placed in standard leg spars. The hip was then prepped and draped in the normal sterile orthopedic fashion. A standard anterior incision was made beginning 3 cm lateral and 1 cm distal to the ASIS extending 10 cm. Dissection was then carried down through the subcutaneous soft tissues down to the fascia overlying the tensor fascia sandra. An incision was now made through the fascia. Careful dissection was taken down exposing the tensor fascia sandra muscle. A Cobra retractor was now placed along the medial femoral neck and a second one along the lateral femoral neck. The venous circumflex vessels were now identified, cauterized and clipped. We identified the anterior hip capsule. An incision was made through the hip capsule along the lateral border. I performed a partial anterior capsulectomy. Retractors were now placed around the femoral neck itself. A femoral neck cut was now made with a sagittal saw. It was completed with an osteotome at the lateral neck area. The femoral head was now removed without difficulty. The extremity was now rotated to 60 of external rotation. It was locked in position. Residual labrum was now debrided out. Serial reaming was performed of the acetabulum while Segundo PULLIAM assisted holding an anterior retractor for exposure. Once we reached the appropriate size and a trial was position and fit nicely. The appropriate size was now chosen opened and made available. It was introduced into the acetabulum without difficulty. The C-arm/fluoroscopy was now brought into the operative field. We made sure we had a true AP pelvic view. We now under direct C- arm/fluoroscopy introduced into the acetabular component with appropriate version and inclination. I held the cup in appropriate position well Segundo PULLIAM used a mallet to seat the acetabular component. I noted the component now to be well seated and stable. Acetabular cup introduce her was removed. The C-arm was pulled back. An appropriate liner was introduced and clicked into position. It was felt to be stable. At this point retractors were removed. The extremity was now placed into 135 external rotation with no traction. The leg was now dropped to the ground and adducted. Appropriate retractors were now positioned along the proximal femur. We also placed our femoral look into position. Additional capsular releasing was performed to gain access to the proximal femur. We now used a box osteotome. A canal finder was now utilized. Serial broaching was now performed with the assistance of Segundo PULLIAM tapping the broaches down with a mallet while held the broach in appropriate rotation and position. This was done until we reached the appropriate size with good overall rotational stability. Appropriate calcar planing was performed. A trial head/neck was placed into position. The hip was now reduced. The C- arm/fluoroscopy was brought back into the operative field. I obtained an AP pel vis was demonstrated adequate leg length positioning compared to her preoperative x-rays with noted shortening of the left lower extremity secondary to previous fracture. The trial components were adequately sized and positioned. The C-arm/fluoroscopy was pulled back. Retractors were repositioned and the hip was dislocated. The leg was again taken down to the ground and adducted. Appropriate retractors were repositioned as well as the femoral hook. All trial components were removed. The femoral implant was opened along with the femoral head. The femoral implant was introduced on the appropriate handle into our pre-broached area. I held the component position well Segundo PULLIAM used a mallet to seat the femoral component. The femoral component was now noted to be well seated and stable.. The femoral head was introduced with good positioning and fixation noted. Retractors were now removed. The hip was now reduced. There appeared be good positioning of the hip confirmed on intraoperative fluoroscopy. Spot films were obtained to document this. A second gram of TXA was given. Bipolar cautery had been utilized intermittently through the procedure for hemostasis. The wound was irrigated copiously with pulse lavage mechanical irrigation. The fascia was repaired with Vicryl suture. The subcutaneous soft tissues were repaired in layers with Vicryl suture. The skin was approximated with pernio/Dermabond. Sterile dressings were applied. Patient was then awakened, transferred to a bed and taken to recovery in stable condition. Segundo PULLIAM assisted with the com plex procedure.
[2022-06-15] MEDS: SODIUM CHLORIDE 0.9% 1,000 ML IV SCH (16:30)
[2022-06-15] MEDS ORDERED: SENNOSIDES-DOCUSATE SODIUM 1 EACH TAB PO SCH (21:00)
[2022-06-16] MEDS: HYDROcodone/APAP 5-325MG 1 EACH TAB PO PRN ×3 (00:48→10:59)
[2022-06-16 08:34] VITALS: BP 108/56; PULSE 58; RESP 16; TEMP 98
[2022-06-16] MEDS ORDERED: CHOLECALCIFEROL 25 MCG (1000 IU) TABLET PO SCH (09:00)
[2022-06-16] MEDS ORDERED: FAMOTIDINE 20 MG TAB PO SCH (09:00)
[2022-06-16] MEDS ORDERED: ENOXAPARIN 40 MG/0.4 ML SYRINGE SQ SCH (09:00)
[2022-06-16] MEDS ORDERED: FUROSEMIDE 20 MG TAB PO SCH (09:00)
[2022-06-16] MEDS ORDERED: PRAVASTATIN SODIUM 20 MG TAB PO SCH (09:00)
[2022-06-16] MEDS ORDERED: LOSARTAN 50 MG TAB PO SCH (09:00)
[2022-06-16] MEDS: SODIUM CHLORIDE 0.9% 1,000 ML IV SCH (09:53)
[2022-06-16] MEDS: LACTATED RINGERS 1,000 ML IV SCH (09:53)
--- NOTE | 2022-06-16 10:19 | P.PN ---
Subjective Progress Note Date: 06/16/22 Principal diagnosis: Status post direct anterior right total hip arthroplasty Patient is examined at bedside today, she is resting in her hospital chair. She did very well ambulating with physical therapy today. She notes some discomfort in the right hip region mainly with weightbearing. She denies breath at this time. She has been urinating with no difficulty. She has multiple family members at home to assist. She denies any headaches, lightheadedness, chest pain or shortness of breath Objective - Vital Signs Vital signs: Vital Signs Temp 98.0 F 06/16/22 07:25 Pulse 58 L 06/16/22 07:25 Resp 16 06/16/22 07:25 BP 108/56 06/16/22 07:25 Pulse Ox 95 06/16/22 09:16 FiO2 Intake & Output 06/15/22 06/16/22 06/16/22 18:59 06:59 18:59 Intake Total 851 Output Total 45 Balance 806 Weight 67.4 kg Intake: IV 851 Output: Estimated Blood Loss 45 Other: Voiding Method Diaper Toilet Incontinent # Voids 1 4 - Exam Right lower extremity: Incision is clean, dry, and intact. The foam dressing is in good condition. There is minimal soft tissue swelling and ecchymosis surrounding the medial and lateral aspects of the incision. Calf is soft, no tenderness with palpation. Plantar flexion, dorsiflexion, EHL, FHL are intact. Sensory exam to light touch throughout the extremity is intact, dorsal pedis pulses 2+. Assessment and Plan Assessment: Postoperative day #1 status post direct anterior right total hip arthroplasty Plan: Pain control, plan for discharge on Ferron 5 mg/325 mg. Stool softener will also be prescribed for outpatient use DVT prophylaxis, aspirin twice a day for 30 days Wound care instructions were discussed, this to include icing and elevating lower showering Home health/physical therapy after discharge Medical recommendations Discharge planning: Patient stable for discharge home today Time with Patient: Less than 30
--- NOTE | 2022-06-16 10:26 | P.DS ---
Providers Date of admission: 06/15/2022 Expected date of discharge: 06/16/22 Attending physician: Serg Adams Consults: 06/15/22 14:25 Consult Physician Routine Consulting Provider: Moe Blankenship Consult Reason/Comments: Medical management Do you want consulting provider notified?: Yes Primary care physician: Juliane Malone [facility] Course: Date of admission: 06/15/2022 Date of discharge: 06/16/2022 Admission diagnosis: Status post direct anterior right total hip arthroplasty Discharge diagnosis: Same Attending physician: Dr. Adams Surgical procedures: Direct anterior right total hip arthroplasty Brief history: Patient is a 76-year-old female with a history of progressive primary right hip osteoarthritis. At this point patient has failed conservative treatment measures and has opted to proceed with a elective direct anterior right total hip arthroplasty. Hospital course: Details of patient's surgery can be found in operative report. Patient tolerated the procedure well and was subsequently transported to orthopedic floor. Patient's orthopeidc and medical care was provided daily. Patient had daily laboratory tests performed for evaluation of overall blood counts. Patient had daily physical therapy to include strengthening range of motion as well as education with walker ambulation. Patient was treated with Lovenox for their postoperative DVT prophylaxis during their inpatient stay. Patient was noted to have a relatively uneventful postoperative course. Patient reported satisfactory pain control with oral pain medications by postoperative day 0. Patient showed satisfactory progress with physical therapy. Patient moved steadily through the program and had no difficulty meeting the goals by postoperative day 1. Given patient's otherwise satisfactory course and having met physical therapy goals, plan is to discharge patient home on postoperative day 1. Discharge condition/disposition: Patient will be discharged home in stable c ondition. Discharge medications: Instructions are given on resumption of patient's normal daily medications per primary care recommendation, in addition patient will be prescribed Nipomo 5 mg/325 mg, senna S, aspirin 81. Discharge instructions: 1. Wound care and infection precautions, keep incision dry and covered while showering, no lotions, creams, moisturizers. No soaking, tubs, pools, hottubs. Do not scrub over the incision. 2. Weight-bear as tolerated with walker / cane until follow-up. 3. Ice and elevate when necessary. Do not exceed 20 minutes per hour with ice pack. 4. Utilize compression sleeve until seen at first follow up appointment. 5. Visiting nursing care. 6. Home physical therapy. 7. Pain meds and anticoagulants per prescription. 8. Pain medication has potential to cause constipation. Increase oral fluid and fiber intake. Contact primary care provider if you have not had a bowel movement within 48 hours after discharge 9. No anti-inflammatory medication until discussed at first post operative visit, this including Motrin, Aleve, Mobic, Diclofenac. 10. Follow up in office at 2 weeks postop with Segundo See PA-C/Natan Epps 11. Follow up with your primary care doctor 7-10 days after discharge. 12. Contact [facility] with any questions, . Patient Condition at Discharge: Good Plan - Discharge Summary Discharge Rx Participant: Yes New Discharge Prescriptions: New Sennosides/Docusate Sodium [Senna-S 8.6-50 mg Tablet] 1 each PO DAILY PRN #30 tablet PRN Reason: Constipation Aspirin [Adult Low Dose Aspirin EC] 81 mg PO BID #60 tab HYDROcodone/APAP 5-325MG [[place] 5-325] 1 - 2 tab PO Q6HR PRN #42 tab PRN Reason: Pain No Action Vitamin B Complex 1 each PO DAILY Furosemide [Lasix] 20 mg PO QAM Balance Of Nature 1 tab PO TID Losartan Potassium 100 mg PO QAM Pravastatin Sodium [Pravachol] 20 mg PO DAILY Escitalopram [Lexapro] 10 mg PO HS Cholecalciferol [Vitamin D3 (25 Mcg = 1000 Iu)] 50 mcg PO DAILY rOPINIRole HCL [Requip] 0.5 mg PO PC-SUPPER Cyanocobalamin (Vitamin B-12) [Vitamin B-12] 1,000 mcg PO DAILY Biotin With Keratin 20,000 mcg PO DAILY Alonzo's Leg Cramp Relief 2 tab PO DIRECTED PRN PRN Reason: Leg cramps Ubidecarenone [Co Q-10] 100 mg PO DAILY hydroCHLOROthiazide [Hydrodiuril] 50 mg PO DAILY Discharge Medication List Escitalopram [Lexapro] 10 mg PO HS 03/14/21 [History] Pravastatin Sodium [Pravachol] 20 mg PO DAILY 03/14/21 [History] Balance Of Nature 1 tab PO TID 06/11/22 [History] Biotin With Keratin 20,000 mcg PO DAILY 06/11/22 [History] Cholecalciferol [Vitamin D3 (25 Mcg = 1000 Iu)] 50 mcg PO DAILY 06/11/22 [History] Cyanocobalamin (Vitamin B-12) [Vitamin B-12] 1,000 mcg PO DAILY 06/11/22 [History] Furosemide [Lasix] 20 mg PO QAM 06/11/22 [History] Alonzo's Leg Cramp Relief 2 tab PO DIRECTED PRN 06/11/22 [History] Losartan Potassium 100 mg PO QAM 06/11/22 [History] Ubidecarenone [Co Q-10] 100 mg PO DAILY 06/11/22 [History] Vitamin B Complex 1 each PO DAILY 06/11/22 [History] rOPINIRole HCL [Requip] 0.5 mg PO PC-SUPPER 06/11/22 [History] hydroCHLOROthiazide [Hydrodiuril] 50 mg PO DAILY 06/15/22 [History] Aspirin [Adult Low Dose Aspirin EC] 81 mg PO BID #60 tab 06/16/22 [Rx] HYDROcodone/APAP 5-325MG [[place] 5-325] 1 - 2 tab PO Q6HR PRN #42 tab 06/16/22 [Rx] Sennosides/Docusate Sodium [Senna-S 8.6-50 mg Tablet] 1 each PO DAILY PRN #30 tablet 06/16/22 [Rx] Follow up Appointment(s)/Referral(s): Juventino See PAC [[employer]] - 07/01/22 3:50 pm Patient Instructions/Handouts: Anterior Hip Replacement (DC) Activity/Diet/Wound Care/Special Instructions: Orthopedic Discharge Instructions: 1. Wound care and infection precautions, keep incision dry and covered while showering, no lotions, creams, moisturizers. No soaking, pools, hot tubs. Do not scrub over incision. 2. Weight-bear as tolerated with walker / cane until follow-up. 3. Ice and elevate when necessary. Do not exceed 20 minutes per hour with ice pack. 4. Utilize compression sleeve until seen at first follow up appointment. 5. Pain meds and anticoagulants per prescription. 6. Pain medication has potential to cause constipation. Increase oral fluid and fiber intake. Contact primary care provider if you have not had a bowel movement within 48 hours after discharge. 7. No anti-inflammatory medication until discussed at first post operative visit, this including Motrin, Aleve, Mobic, Diclofenac. 8. Follow up in office at 2 weeks postop with Segundo See PA-C / Natan Pepe PA-C 9. Follow up with your primary care doctor 7-10 days after discharge. 10. Contact [facility] with any questions, . Keep incision clean, dry contact. While showering, cover silver foam dressing w ith Saran wrap. Silver foam dressing may be removed in 7 days, 06/22/2022. May shower directly over incision once silver foam dressing is removed. Discharge Disposition: HOME WITH HOME HEALTH SERVICES
[2022-06-16 10:47] LABS: Basophils # (A) 0.01 X 10*3/uL (0.00-0.10); Basophils % (A) 0.1 %; Eosinophils # (A) 0 X 10*3/uL (0.04-0.35); Eosinophils % (A) 0 %; HCT 26.9 % (37.2-46.3); HGB 8.7 g/dL (12.0-15.0); Immature Grans, Automated 0.5 %; Lymphocytes # (A) 0.56 X 10*3/uL (0.90-5.00); Lymphocytes % (A) 5.5 %; MCHC 32.3 g/dL (32.0-37.0); MCV 101.9 fL (80.0-97.0); Mean Platelet Volume 9.7 fL (9.5-12.2); Monocytes # (A) 0.49 X 10*3/uL (0.20-1.00); Monocytes % (A) 4.8 %; NRBC Per 100 WBC 0 /100 WBCS (0.0-0.0); Neutrophils # (A) 9.03 X 10*3/uL (1.80-7.70); Neutrophils % (A) 89.1 %; Platelet Count 186 X 10*3/uL (140-440); RBC 2.64 X 10*6/uL (4.10-5.20); RDW 12.4 % (11.5-14.5); WBC 10.14 X 10*3/uL (4.50-10.00)
--- NOTE | 2022-06-16 13:12 | P.CONS ---
History of Present Illness - Reason for Consult Consult date: 06/16/22 Medical management, status post right hip arthroplasty - History of Present Illness This is a very pleasant 76-year-old female who was admitted under orthopedic services and underwent right total hip arthroplasty. Patient is doing relatively well postop day 1 and has been working with physical therapy going home and has help and support in the home. Patient does have primary care provider is Dr. Malone with a past medical history of hypertension, high cholesterol. Patient does take blood pressure medication was instructed to hold that medication today as her blood pressure was normotensive currently would like to monitor for postoperative hypotension. Patient did go to cardiology as well as nephrology and primary care provider for pre-surgical clearance. Patient does have incentive spirometer at the bedside and encourage the patient to continue using at least 10 times every hour while awake. Review Of Systems: Constitutional: No fever, no chills, no night sweats. No weight change. No weakness, fatigue or lethargy. No daytime sleepiness. EENT: No headache. No blurred vision or double vision, no loss of vision. No loss of Hearing, no ringing in the ears, no dizziness. No nasal drainage or congestion. No epistaxis. No sore throat. Lungs: No shortness of breath, cough, no sputum production. No wheezing. Cardiovascular: No chest pain, no lower extremity edema. No palpitations. No paroxysmal nocturnal dyspnea. No orthopnea. No lightheadedness or dizziness. No syncopal episodes. Abdominal: No abdominal pain. No nausea, vomiting. No diarrhea. No constipation. No bloody or tarry stools.. No loss of appetite. Genitourinary: No dysuria, increased frequency, urgency. No urinary retention. Musculoskeletal: No myalgias. No muscle weakness, no gait dysfunction, no frequent falls. No back pain. No neck pain. reports some mild right hip discomfort at the surgical site with movement Integumentary: No wounds, no lesions. No rash or pruritus. No unusual bruising. No change in hair or nails. Neurologic: No aphasia. No facial droop. No change in mentation. No head injury. No headache. No paralysis. No paresthesia. Psychiatric: No depression. No anxiety. No mood swings. Endocrine: No abnormal blood sugars. No weight change. No excessive sweating or thirst. No cold intolerance. PHYSICAL EXAMINATION: GENERAL: The patient is alert and oriented x4, Well developed, well nourished. HEENT: Pupils are round and equally reacting to light. EOMI. no scleral icterus. No conjunctival pallor. Normocephalic, atraumatic. No pharyngeal erythema. No thyromegaly. CARDIOVASCULAR: S1 and S2 muffled PULMONARY: Breath sounds clear to auscultation with no wheezing or rhonchi noted. ABDOMEN: soft. Nontender on exam. non-distended, normoactive bowel sounds. No palpable organomegaly. MUSCULOSKELETAL: No joint swelling or deformity. EXTREMITIES: No cyanosis, clubbing, or pedal edema. Right hip anterior surgical dressing is dry and intact with no surrounding redness and minimal swelling noted NEUROLOGICAL: Gross neurological examination did not reveal any focal deficits. SKIN: No rashes. Assessment: Status post right total hip arthroplasty, anterior approach Mild leukocytosis, most likely reactive History of hypertension, currently normotensive Hyperlipidemia history History of osteoarthritis GI prophylaxis DVT prophylaxis Full code Plan: Recommend to continue with current medications and management per orthopedic services. Patient is status post right total hip arthroplasty postop day 1 did relatively well with physical therapy plans for returning home and has support at home Patient did go to her agriculture teacher Dr. Smart as well as primary care provider Dr. Malone for presurgical clearance Home medications reviewed and resumed and patient instructed to hold blood pressure medication today monitor blood pressure as we are monitoring for p ostoperative hypotension, currently normotensive Patient with incentive spirometer at the bedside and encouraged to use at least 10 times every hour while awake Patient reports she is being discharged today and patient is medically stable for discharge Attending to kindly for this consultation and we will continue to follow during hospitalization The impression and plan of care has been dictated by Preeti Cutler, nurse practitioner as directed. Dr. Jerod MD I have performed a history and examination and MDM of this patient, discussed the same with the dictator, and agree with the dictator's assessment and plan as written ,documented as a scribe. Based on total visit time, I have performed more than 50% of the visit. Any additional findings or plans will be noted. Past Medical History Past Medical History: Hyperlipidemia, Hypertension, Osteoarthritis (OA) Additional Past Medical History / Comment(s): VASCULAR HEADACHES , VARICOSE VEINS. History of Any Multi-Drug Resistant Organisms: None Reported Past Surgical History: Adenoidectomy, Bladder Surgery, Bowel Resection, Hysterectomy, Tonsillectomy, Tubal Ligation Additional Past Surgical History / Comment(s): BSO, [place] NEUROMA LEFT FOOT, CYSTOCELE AND RECTOCELE REPAIR, Past Anesthesia/Blood Transfusion Reactions: No Reported Reaction Additional Past Anesthesia/Blood Transfusion Reaction / Comm: BLOOD TRANSFUSION WITH NO PROBLEM Past Psychological History: No Psychological Hx Reported Smoking Status: Former smoker, Never smoker Past Alcohol Use History: Rare Past Drug Use History: None Reported - Past Family History Mother Family Medical History: No Reported History Medications and Allergies Home Medications Medication Instructions Recorded Confirmed Type Escitalopram [Lexapro] 10 mg PO HS 03/14/21 06/15/22 History Pravastatin Sodium [Pravachol] 20 mg PO DAILY 03/14/21 06/15/22 History Balance Of Nature 1 tab PO TID 06/11/22 06/15/22 History Biotin With Keratin 20,000 mcg PO DAILY 06/11/22 06/15/22 History Cholecalciferol [Vitamin D3 (25 50 mcg PO DAILY 06/11/22 06/15/22 History Mcg = 1000 Iu)] Cyanocobalamin (Vitamin B-12) 1,000 mcg PO DAILY 06/11/22 06/15/22 History [Vitamin B-12] Furosemide [Lasix] 20 mg PO QAM 06/11/22 06/15/22 History Alonzo's Leg Cramp Relief 2 tab PO DIRECTED PRN 06/11/22 06/15/22 History Losartan Potassium 100 mg PO QAM 06/11/22 06/15/22 History Ubidecarenone [Co Q-10] 100 mg PO DAILY 06/11/22 06/15/22 History Vitamin B Complex 1 each PO DAILY 06/11/22 06/15/22 History rOPINIRole HCL [Requip] 0.5 mg PO PC-SUPPER 06/11/22 06/15/22 History hydroCHLOROthiazide [Hydrodiuril] 50 mg PO DAILY 06/15/22 06/15/22 History Aspirin [Adult Low Dose Aspirin EC] 81 mg PO BID #60 tab 06/16/22 Rx HYDROcodone/APAP 5-325MG [[place] 1 - 2 tab PO Q6HR PRN #42 tab 06/16/22 Rx 5-325] Sennosides/Docusate Sodium 1 each PO DAILY PRN #30 tablet 06/16/22 Rx [Senna-S 8.6-50 mg Tablet] Allergies Allergy/AdvReac Type Severity Reaction Status Date / Time shellfish derived [Shrimp] Allergy Dyspnea Verified 06/15/22 11:10 Physical Exam Vitals: Vital Signs Temp Pulse Pulse Resp BP Pulse Ox 06/16/22 09:16 95 06/16/22 07:25 98.0 F 58 L 16 108/56 97 06/16/22 00:53 97.9 F 45 L 15 115/61 99 06/15/22 19:34 97.0 F L 59 L 15 119/59 98 06/15/22 17:23 56 L 138/60 96 06/15/22 17:08 56 L 126/63 98 06/15/22 17:02 98 06/15/22 16:53 50 L 134/56 98 06/15/22 16:38 51 L 125/60 88 L 06/15/22 16:27 97.5 F L 50 L 14 129/56 94 L 06/15/22 15:45 51 L 16 141/66 100 06/15/22 15:30 65 16 153/65 100 06/15/22 15:15 51 L 16 140/65 100 06/15/22 15:00 49 L 16 147/68 100 06/15/22 14:41 98.1 F 62 20 158/71 100 06/15/22 12:03 54 L 16 137/63 100 06/15/22 11:15 97.2 F L 61 16 140/64 97 Intake and Output 06/15/22 06/16/22 06/16/22 22:59 06:59 14:59 Other: Voiding Method Toilet Incontinent # Voids 1 4 Weight 67.4 kg Results CBC & Chem 7: 06/16/22 07:06
[2022-06-16] MEDS ORDERED: ESCITALOPRAM 10 MG TAB PO SCH (21:00)
== END 2022-06-16 13:51 | disposition home health service (06) ==
LOC: OR 10:43 → 4SSUR 15:12 → OR 06-16 13:51
PROVIDERS: ATTEND Orthopaedic Surgery
DX: M16.11 Unilateral primary osteoarthritis, right hip (principal); G89.18 Other acute postprocedural pain; I10 Essential (primary) hypertension; E78.5 Hyperlipidemia, unspecified; I25.10 Atherosclerotic heart disease of native coronary artery without angina pectoris; Z90.710 Acquired absence of both cervix and uterus; Z90.89 Acquired absence of other organs; Z79.899 Other long term (current) drug therapy
CPT/HCPCS: 94760 ×2; 97161; 86900; 86901; 85025; 86850; 73501; 27130; 64447; C1776; J2250; J1100; J0690 ×3; J2405; J1650; J1170; 88300

== ENCOUNTER → 2022-06-30 | Outpatient (CLI) | payer MEDICARE, MEDICAID ==
--- NOTE | 2022-06-30 16:18 | CT ---
EXAMINATION TYPE: CT sinus wo con DATE OF EXAM: 06/30/2022 COMPARISON: 03/10/2019 HISTORY: Chronic maxillary sinusitis. Deviated septum CT DLP: 415 mGycm CONTRAST: 0 mL of Isovue 300 The paranasal sinuses are examined in the axial plane at 2 mm thick sections. Reconstructed images i n the coronal plane were obtained. There is dental amalgam scatter artifact The maxillary sinuses are clear. The ethmoid air cells are clear. The sphenoid sinuses are clear. The frontal sinuses are clear. The septum is evaluated. There is septal deviation to the left. The ostiomeatal units are patent. IMPRESSIONS: 1. Left septal deviation.
== END | disposition home or self-care (01) ==
LOC: RADCTMAIN 13:00
PROVIDERS: ATTEND Otolaryngology
DX: J32.0 Chronic maxillary sinusitis (principal); J34.2 Deviated nasal septum
CPT/HCPCS: 70486

== ENCOUNTER 2022-08-20 14:37 | Inpatient (IN) | payer MEDICARE, MEDICAID ==
[2022-08-20 15:20] LABS: Basophils % (A) 1 %; Eosinophils # (A) 0.1 k/uL (0-0.7); Eosinophils % (A) 2 %; HCT 38.4 % (34.0-46.0); HGB 12.6 gm/dL (11.4-16.0); Lymphocytes # (A) 0.6 k/uL (1.0-4.8); Lymphocytes % (A) 20 %; MCH 30.1 pg (25.0-35.0); MCHC 32.8 g/dL (31.0-37.0); Monocytes # (A) 0.3 k/uL (0-1.0); Monocytes % (A) 10 %; Neutrophils # (A) 1.9 k/uL (1.3-7.7); Neutrophils % (A) 66 %; Platelet Count 352 k/uL (150-450); RBC 4.18 m/uL (3.80-5.40); RDW 13.2 % (11.5-15.5); WBC 2.8 k/uL (3.8-10.6)
[2022-08-20 15:45] LABS: ALT 18 U/L (4-34); AST 34 U/L (14-36); African American GFR (CKD) >90 (>60 ml/min/1.73 sqM); Albumin 3.8 g/dL (3.5-5.0); Alkaline Phosphatase 70 U/L (38-126); Anion Gap 8 mmol/L; Blood Urea Nitrogen 15 mg/dL (7-17); Calcium 9.1 mg/dL (8.4-10.2); Carbon Dioxide 28 mmol/L (22-30); Chloride 93 mmol/L (98-107); Creatine Kinase <20 U/L (30-135); Glucose 135 mg/dL (74-99); Non-African American GFR(CKD) >90 (>60 ml/min/1.73 sqM); Potassium 4.4 mmol/L (3.5-5.1); Sodium 129 mmol/L (137-145); Total Bilirubin 0.7 mg/dL (0.2-1.3); Total Protein 7.9 g/dL (6.3-8.2)
--- NOTE | 2022-08-20 17:25 | ED ---
General Adult HPI - General Source: patient, family Mode of arrival: wheelchair Limitations: no limitations <Manuel Chi - Last Filed: 08/20/22 17:25> - General Source: patient, family, RN notes reviewed Mode of arrival: wheelchair Limitations: no limitations <Jed Amezcua - Last Filed: 08/20/22 20:53> - General Chief complaint: Shortness of Breath Stated complaint: SOB/weakness - History of Present Illness Initial comments: 77-year-old woman presents to ED with chief complaint of shortness of breath. Patient states for the past week has had increasing shortness of breath especially with activity. Denies any chest pain at this time. No history of PE/DVT. Denies history of tobacco use. Denies exogenous estrogen use. No history of cancer. (Manuel Chi) Patient is a pleasant 77-year-old female presenting to the emergency department with concerns for dyspnea. Symptoms have progressed mostly over the past week. Patient has exertional dyspnea. No chest pain. Patient has had decreased appetite recently. Patient has lost around 20 pounds in the past month. Patient has increased fatigue. No cough. No leg pain or leg swelling. Patient did stop taking medications week ago. Patient has not getting out of her chair much. (Jed Amezcua) - Related Data Home Medications Medication Instructions Recorded Confirmed Escitalopram [Lexapro] 10 mg PO HS 03/14/21 08/20/22 Pravastatin Sodium [Pravachol] 20 mg PO DAILY 03/14/21 08/20/22 Biotin With Keratin 1 cap PO DAILY 06/11/22 08/20/22 Cholecalciferol [Vitamin D3 (25 25 mcg PO DAILY 06/11/22 08/20/22 Mcg = 1000 Iu)] Cyanocobalamin (Vitamin B-12) 1,000 mcg PO DAILY 06/11/22 08/20/22 [Vitamin B-12] Furosemide [Lasix] 20 mg PO DAILY PRN 06/11/22 08/20/22 Vitamin B Complex 1 cap PO DAILY 06/11/22 08/20/22 rOPINIRole HCL [Requip] 0.5 mg PO PC-SUPPER 06/11/22 08/20/22 Ubidecarenone [Coenzyme Q10] 100 mg PO DAILY 08/20/22 08/20/22 hydrALAZINE HCL [Apresoline] 50 mg PO TID 08/20/22 08/20/22 Previous Rx's Medication Instructions Recorded HYDROcodone/APAP 5-325MG [[place] 1 - 2 tab PO Q6HR PRN #42 tab 06/16/22 5-325] Allergies Allergy/AdvReac Type Severity Reaction Status Date / Time shellfish derived [Shrimp] Allergy Dyspnea Verified 08/20/22 18:03 Review of Systems ROS Other: All systems not noted in ROS Statement are negative. <Manuel Chi - Last Filed: 08/20/22 17:25> ROS Other: All systems not noted in ROS Statement are negative. Constitutional: Denies: fever Eyes: Denies: eye pain ENT: Denies: ear pain Respiratory: Reports: as per HPI, dyspnea Cardiovascular: Denies: chest pain Endocrine: Reports: fatigue Gastrointestinal: Denies: abdominal pain Musculoskeletal: Denies: back pain Skin: Denies: rash Neurological: Denies: headache <Jed Amezcua - Last Filed: 08/20/22 20:53> ROS Statement: Those systems with pertinent positive or pertinent negative responses have been documented in the HPI. Past Medical History Past Medical History: Hyperlipidemia, Hypertension, Osteoarthritis (OA) Additional Past Medical History / Comment(s): VASCULAR HEADACHES , VARICOSE VEINS. History of Any Multi-Drug Resistant Organisms: None Reported Past Surgical History: Adenoidectomy, Bladder Surgery, Bowel Resection, Hysterectomy, Joint Replacement, Tonsillectomy, Tubal Ligation Additional Past Surgical History / Comment(s): BSO, [place] NEUROMA LEFT FOOT, C YSTOCELE AND RECTOCELE REPAIR, angie hip Past Anesthesia/Blood Transfusion Reactions: No Reported Reaction Additional Past Anesthesia/Blood Transfusion Reaction / Comment(s): BLOOD TRANSFUSION WITH NO PROBLEM Past Psychological History: Depression Smoking Status: Former smoker Past Alcohol Use History: Rare Past Drug Use History: None Reported - Past Family History Mother Family Medical History: No Reported History <Manuel Chi - Last Filed: 08/20/22 17:25> General Exam Limitations: no limitations Extremities exam: Present: other (No pitting edema of the bilateral lower extremities) <Manuel Chi - Last Filed: 08/20/22 17:25> Limitations: no limitations General appearance: alert, in no apparent distress Head exam: Present: atraumatic Eye exam: Present: normal appearance ENT exam: Present: normal oropharynx Neck exam: Present: normal inspection Respiratory exam: Present: normal lung sounds bilaterally Cardiovascular Exam: Present: regular rate, normal rhythm GI/Abdominal exam: Present: soft. Absent: tenderness Extremities exam: Present: normal inspection. Absent: pedal edema, calf tenderness Neurological exam: Present: alert Psychiatric exam: Present: normal affect, normal mood Skin exam: Present: other (Stage I pressure ulcers upper back) <Jed Amezcua - Last Filed: 08/20/22 20:53> Course Vital Signs 08/20/22 08/20/22 08/20/22 14:43 18:19 20:23 Temperature 98.5 F Pulse Rate 94 61 62 Respiratory 20 20 16 Rate Blood Pressure 101/69 129/65 153/70 O2 Sat by Pulse 96 95 Oximetry EKG Findings - EKG Results: EKG: interpreted by ERMD (Nonspecific T waves), sinus rhythm, normal axis, normal QRS <Jed Amezcua - Last Filed: 08/20/22 20:53> Medical Decision Making - Lab Data Result diagrams: 08/20/22 14:55 08/20/22 14:55 <Manuel Chi - Last Filed: 08/20/22 17:25> - Lab Data Result diagrams: 08/20/22 14:55 08/20/22 14:55 <Jed Amezcua - Last Filed: 08/20/22 20:53> - Medical Decision Making Was pt. sent in by a medical professional or institution (, PA, AGRONOMY MANAGER, urgent care, hospital, or fdc...) When possible be specific @ -No Did you speak to anyone other than the patient for history (EMS, parent, family, police, friend...)? What history was obtained from this source @ -Family is present and helps provide history the patient is reluctant to provide Did you review nursing and triage notes (agree or disagree)? Why? @ -I reviewed and agree with nursing and triage notes Were old charts reviewed (outside hosp., previous admission, EMS record, old EKG, old radiological studies, urgent care reports/EKG's, fdc records)? Report findings @ -No old charts were reviewed Differential Diagnosis (chest pain, altered mental status, abdominal pain women, abdominal pain men, vaginal bleeding, weakness, fever, dyspnea, syncope, headache, dizziness, GI bleed, back pain, seizure, CVA, palpatations, mental health, musculoskeletal)? @ -Differential Dyspnea: Coronary syndrome, arrhythmia, tamponade, asthma, COPD, pulmonary embolism, pneumonia, pneumothorax, pulmonary effusion, anaphylaxis, diabetic ketoacidosis, flailed chest, pulmonary contusion, diaphragmatic rupture, anemia, neuromuscular, this is not meant to be an all-inclusive list. EKG interpreted by me (3pts min.). @ -As above X-rays interpreted by me (1pt min.). @ -Chest x-ray shows no acute process CT interpreted by me (1pt min.). @ -Small effusions bilaterally U/S interpreted by me (1pt. min.). @ -None done What testing was considered but not performed or refused? (CT, X-rays, U/S, labs)? Why? @ -None What meds were considered but not given or refused? Why? @ -None Did you discuss the management of the patient with other professionals (professionals i.e. , PA, AGRONOMY MANAGER, lab, RT, psych nurse, school social worker, fleet dispatch manager, teacher, corporate compliance officer, business case analyst)? Give summary @ -Case discussed with Dr. Live, who will admit For Dr. Malone Was smoking cessation discussed for >3mins.? @ -No Was critical care preformed (if so, how long)? @ -No Were there social determinants of health that impacted care today? How? (Homelessness, low income, unemployed, alcoholism, drug addiction, transportation, low edu. Level, literacy, decrease access to med. care, group home, rehab)? @ -No Was there de-escalation of care discussed even if they declined (Discuss DNR or withdrawal of care, Hospice)? DNR status @ -No What co-morbidities impacted this encounter? (DM, HTN, Smoking, COPD, CAD, Cancer, CVA, ARF, Chemo, Hep., AIDS, mental health diagnosis, sleep apnea, mo rbid obesity)? @ -None Was patient admitted / discharged? Hospital course, mention meds given and route, prescriptions, significant lab abnormalities, going to OR and other pertinent info. @ -Age reevaluated. Patient family updated. Patient will be better for further evaluation of exertional dyspnea. Patient will also need further evalua tion of weight loss and this is informed to patient and family and made aware this many to be continued as an outpatient Undiagnosed new problem with uncertain prognosis? @ -No Drug Therapy requiring intensive monitoring for toxicity (Heparin, Nitro, Insulin, Cardizem)? @ -No Were any procedures done? @ -No Diagnosis/symptom? @ -Exertional dyspnea Acute, or Chronic, or Acute on Chronic? @ -Acute Uncomplicated (without systemic symptoms) or Complicated (systemic symptoms)? @ -default Side effects of treatment? @ -No Exacerbation, Progression, or Severe Exacerbation? @ -No Poses a threat to life or bodily function? How? (Chest pain, [place], [place], pneumonia, PE, COPD, DKA, ARF, appy, cholecystitis, CVA, Diverticulitis, Homicidal, Suicidal, threat to staff... and all critical care pts) @ -No (Jed Amezcua) - Lab Data Lab Results 08/20/22 08/20/22 08/20/22 Range/Units 14:55 14:55 14:55 WBC 2.8 L (3.8-10.6) k/uL RBC 4.18 (3.80-5.40) m/uL Hgb 12.6 (11.4-16.0) gm/dL Hct 38.4 (34.0-46.0) % MCV 92.0 (80.0-100.0) fL MCH 30.1 (25.0-35.0) pg MCHC 32.8 (31.0-37.0) g/dL RDW 13.2 (11.5-15.5) % Plt Count 352 (150-450) k/uL MPV 7.0 Neutrophils % 66 % Lymphocytes % 20 % Monocytes % 10 % Eosinophils % 2 % Basophils % 1 % Neutrophils # 1.9 (1.3-7.7) k/uL Lymphocytes # 0.6 L (1.0-4.8) k/uL Monocytes # 0.3 (0-1.0) k/uL Eosinophils # 0.1 (0-0.7) k/uL Basophils # 0.0 (0-0.2) k/uL PT (9.0-12.0) sec INR (<1.2) APTT (22.0-30.0) sec D-Dimer (<0.60) mg/L FEU Sodium 129 L (137-145) mmol/L Potassium 4.4 (3.5-5.1) mmol/L Chloride 93 L (98-107) mmol/L Carbon Dioxide 28 (22-30) mmol/L Anion Gap 8 mmol/L BUN 15 (7-17) mg/dL Creatinine 0.51 L (0.52-1.04) mg/dL Est GFR (CKD-EPI)AfAm >90 (>60 ml/min/1.73 sqM) Est GFR (CKD-EPI)NonAf >90 (>60 ml/min/1.73 sqM) Glucose 135 H (74-99) mg/dL Plasma Lactic Acid Joao (0.7-2.0) mmol/L Calcium 9.1 (8.4-10.2) mg/dL Total Bilirubin 0.7 (0.2-1.3) mg/dL AST 34 (14-36) U/L ALT 18 (4-34) U/L Alkaline Phosphatase 70 (38-126) U/L Creatine Kinase <20 L (30-135) U/L Troponin I <0.012 (0.000-0.034) ng/mL NT-Pro-B Natriuret Pep pg/mL Total Protein 7.9 (6.3-8.2) g/dL Albumin 3.8 (3.5-5.0) g/dL 08/20/22 08/20/22 08/20/22 Range/Units 14:55 15:35 18:21 WBC (3.8-10.6) k/uL RBC (3.80-5.40) m/uL Hgb (11.4-16.0) gm/dL Hct (34.0-46.0) % MCV (80.0-100.0) fL MCH (25.0-35.0) pg MCHC (31.0-37.0) g/dL RDW (11.5-15.5) % Plt Count (150-450) k/uL MPV Neutrophils % % Lymphocytes % % Monocytes % % Eosinophils % % Basophils % % Neutrophils # (1.3-7.7) k/uL Lymphocytes # (1.0-4.8) k/uL Monocytes # (0-1.0) k/uL Eosinophils # (0-0.7) k/uL Basophils # (0-0.2) k/uL PT 11.4 (9.0-12.0) sec INR 1.1 (<1.2) APTT 33.2 H (22.0-30.0) sec D-Dimer 3.45 H (<0.60) mg/L FEU Sodium (137-145) mmol/L Potassium (3.5-5.1) mmol/L Chloride (98-107) mmol/L Carbon Dioxide (22-30) mmol/L Anion Gap mmol/L BUN (7-17) mg/dL Creatinine (0.52-1.04) mg/dL Est GFR (CKD-EPI)AfAm (>60 ml/min/1.73 sqM) Est GFR (CKD-EPI)NonAf (>60 ml/min/1.73 sqM) Glucose (74-99) mg/dL Plasma Lactic Acid Joao 1.3 (0.7-2.0) mmol/L Calcium (8.4-10.2) mg/dL Total Bilirubin (0.2-1.3) mg/dL AST (14-36) U/L ALT (4-34) U/L Alkaline Phosphatase (38-126) U/L Creatine Kinase (30-135) U/L Troponin I (0.000-0.034) ng/mL NT-Pro-B Natriuret Pep 2800 pg/mL Total Protein (6.3-8.2) g/dL Albumin (3.5-5.0) g/dL Disposition <Manuel Chi - Last Filed: 08/20/22 17:25> Is patient prescribed a controlled substance at d/c from ED?: No Time of Disposition: 20:50 <Jed Amezcua - Last Filed: 08/20/22 20:53> Clinical Impression: Exertional dyspnea Disposition: ADMITTED IP TO THIS HOSP Referrals: Juliane Malone MD [Primary Care Provider] - 1-2 days
--- NOTE | 2022-08-20 18:34 | XR ---
EXAMINATION TYPE: XR chest 2V DATE OF EXAM: 08/20/2022 5:52 PM COMPARISON: Chest x-ray 10/01/2022 TECHNIQUE: XR chest 2V . CLINICAL INDICATION:Female, 77 years old with history of SOB; FINDINGS: Lungs/Pleura: Prominent interstitial lung markings are seen scattered throughout the lungs. No eviden ce of focal consolidation, pneumothorax or pleural effusion. Pulmonary vascularity: Unremarkable. Heart/mediastinum: Cardiomediastinal silhouette is unremarkable. Musculoskeletal: Multiple level degenerative disc disease changes seen throughout the spine. IMPRESSION: Chronic changes without acute pulmonary process. No significant change from prior.
[2022-08-20 19:18] LABS: INR 1.1 (<1.2); Partial Thromboplastin Time 33.2 sec (22.0-30.0); Prothrombin Time 11.4 sec (9.0-12.0)
[2022-08-20] MEDS ORDERED: diphenhydrAMINE 50 MG/ML 1 ML VIAL IVP STA (19:31)
[2022-08-20] MEDS ORDERED: methylPREDNISolone SOD SUCCI 125 MG/2 ML VIAL IV STA (19:31)
[2022-08-20] MEDS ORDERED: FAMOTIDINE 20 MG/2 ML VIAL IV STA (19:31)
--- NOTE | 2022-08-20 20:34 | CT ---
EXAMINATION TYPE: CT angio chest CT DLP: 245.8 mGycm, Automated exposure control for dose reduction was used. DATE OF EXAM: 08/20/2022 8:15 PM COMPARISON: Chest x-ray 08/20/2022 CT chest 06/01/2022. CLINICAL INDICATION:Female, 77 years old with history of dyspnea; SOB and elevated d-dimer TECHNIQUE/CONTRAST: CTA scan of the thorax is performed with IV Contrast, patient injected with 65ml mL of Isovue 300, pu lmonary embolism protocol. MIP images are created and reviewed. FINDINGS: Pulmonary Artery: There is no evidence for a filling defect within the pulmonary vasculature to sugge st acute pulmonary embolism. The pulmonary artery is of normal size. Lungs/Pleura: Trace bilateral pleural effusions, right greater than left. There is associated passive atelectasis of the lower lobes bilaterally. Bibasilar subsegmental atelectasis. No pneumothorax. Airway: Large airways are patent. Heart: Heart is within normal limits for size.. Vasculature: Minimal calcified atherosclerosis. Mediastinum: No gross evidence of adenopathy. Musculoskeletal: Mild degenerative disc disease changes are present throughout the thoracolumbar spin e. Soft Tissues: Unremarkable. Lower neck: No significant findings. Upper Abdomen: No significant findings. IMPRESSION: 1. No evidence of pulmonary embolism. 2. Trace pleural effusions with associated atelectasis.
[2022-08-20] MEDS ORDERED: FUROSEMIDE 10 MG/ML 4 ML VIAL IV STA (20:47)
[2022-08-20] MEDS ORDERED: NALOXONE 0.4 MG/ML 1 ML VIAL IV PRN (20:54)
[2022-08-21 08:01] LABS: HCT 35.4 % (34.0-46.0); HGB 11.7 gm/dL (11.4-16.0); MCH 30.6 pg (25.0-35.0); MCHC 32.9 g/dL (31.0-37.0); Mean Platelet Volume 7.2; Platelet Count 297 k/uL (150-450); RBC 3.81 m/uL (3.80-5.40); RDW 13.5 % (11.5-15.5); WBC 2.4 k/uL (3.8-10.6)
[2022-08-21 08:35] LABS: Eosinophils # (M) 0.19 k/uL (0-0.7); Lymphocytes # (M) 1.06 k/uL (1.0-4.8); Monocytes # (M) 0.14 k/uL (0-1.0); Neutrophils # (M) 1.01 k/uL (1.3-7.7); Neutrophils % (M) 42 %; Nucleated Red Blood Cells 0 /100 WBC (0-0); Total Cells Counted 100
[2022-08-21] MEDS ORDERED: FUROSEMIDE 10 MG/ML 2 ML VIAL IV SCH (09:30)
[2022-08-21] MEDS: predniSONE 10 MG TAB PO SCH (10:53)
[2022-08-21 11:16] LABS: Chloride 94 mmol/L (96-109); Glucose 86 mg/dL (70-110); Magnesium 1.9 mg/dL (1.5-2.4); Potassium 3.8 mmol/L (3.5-5.5); Sodium 131 mmol/L (135-145)
[2022-08-21 11:17] LABS: ALT 13 U/L (8-44); AST 23 U/L (13-35); Albumin 3.5 d/dL (3.8-4.9); Albumin/Globulin Ratio 1.03 Ratio (1.60-3.17); Alkaline Phosphatase 59 U/L (41-126); Carbon Dioxide 23.9 mmol/L (21.6-31.8); Globulin 3.4 d/dL (1.6-3.3); Total Bilirubin 0.6 mg/dL (0.3-1.2); Total Protein 6.9 d/dL (6.2-8.2)
[2022-08-21 13:38] LABS: Amorphous Sediment,Urine Rare /hpf; Appearance,Urine Clear (Clear); Bacteria,Urine Few /hpf; Bilirubin,Urine Negative (Negative); Blood,Urine Negative (Negative); Color,Urine Light Yellow; Glucose,Urine (UA) Negative (Negative); Ketones,Urine Negative (Negative); Leukocyte Esterase,Urine Trace (Negative); Mucus,Urine Rare /hpf; Nitrite,Urine Negative (Negative); PH, Urine 6.5 (5.0-8.0); Protein,Urine Negative (Negative); Specific Gravity,Urine 1.008 (1.001-1.035); Urobilinogen,Urine <2.0 mg/dL (<2.0); WBC,Urine 2 /hpf (0-5)
--- NOTE | 2022-08-21 13:49 | P.CRDCN ---
History of Present Illness History of present illness: HISTORY OF PRESENT ILLNESS: This is a 77-year-old female with a past medical history significant for hyperlipidemia and hypertension. Patient follows in the office with Dr. Smart. We have been asked to see the patient in consultation for shortness of breath with exertion. Patient examined at the bedside. Patient states she has been having shortness of breath and chest pain whenever she moves her body or when she is talking. She states that the pain starts in of her chest and goes down pulses of her body. She states the pain is worse with chest wall palpation. She states it is worse with deep inspiration. She states if she is just laying in bed resting she does not have any shortness of breath or chest pain. * EKG reveals sinus mechanism with no signs of acute ischemia * Chest CT: Negative for pulmonary embolism * Chest xray chronic changes without acute pulmonary process. No significant change from prior * Laboratory data: WBC 2.4. Hemoglobin 11.7. Platelet count 297. D-dimer 3.45. Sodium 131. Potassium 3.8. BUN 15. Creatinine 0.5. Troponin negative 3. ProBNP 2800. * Current home cardiac medications include Lasix 20mg daily PRN, pravachol 20mg daily, hydralazine 50 TID * Most recent echocardiogram obtained in May 2022 revealed normal ejection fraction, mild to moderate MR, mild to moderate TR * Patient underwent Lexiscan stress test in May 2022 was negative for skin anemia REVIEW OF SYSTEMS: At the time of my exam: CONSTITUTIONAL: Denies fever or chills. HEENT: Denies blurred vision, vision changes, or eye pain. Denies hemoptysis CARDIOVASCULAR: Denies chest pain. Denies orthopnea. Denies PND. Denies palpitations RESPIRATORY: Denies shortness of breath. GASTROINTESTINAL: Denies abdominal pain. Denies nausea or vomiting. HEMATOLOGIC: Denies bleeding disorders. GENITOURINARY: Denies any blood in urine. SKIN: Denies pruitis. Denies rash. PHYSICAL EXAM: VITAL SIGNS: Reviewed. GENERAL: Well-developed in no acute distress. HEENT: Head is normocephalic. Pupils are equal, round. Sclerae anicteric. Mucous membranes of the mouth are moist. Neck supple. No JVD or thyromegaly LUNGS: Respirations even and unlabored. Lungs essentially clear to auscultation bilaterally. HEART: Regular rate and rhythm. S1 and S2 heard. ABDOMEN: Soft. Nondistended. Nontender. EXTREMITIES: Normal range of motion. No clubbing or cyanosis. Peripheral pulses intact. No lower extremity edema NEUROLOGIC: Awake and alert. Oriented x 3. ASSESSMENT: Exertional shortness of breath, with recent Lexiscan stress test and echocardiogram performed in May 2022 Hypertension Hyperlipidemia PLAN: No need to repeat echocardiogram as this was performed in May 2022 Resume home cardiac medications Patient appears euvolemic on examination. However pulmonary started the patient on IV Lasix. Will defer IV Lasix management to pulmonary services We will sign off. Please reconsult if needed. Nurse practitioner note has been reviewed by physician. Signing provider agrees with the documented findings, assessment, and plan of care. Past Medical History Past Medical History: Hyperlipidemia, Hypertension, Osteoarthritis (OA) Additional Past Medical History / Comment(s): VASCULAR HEADACHES , VARICOSE VEINS. History of Any Multi-Drug Resistant Organisms: None Reported Past Surgical History: Adenoidectomy, Bladder Surgery, Bowel Resection, Hysterectomy, Joint Replacement, Tonsillectomy, Tubal Ligation Additional Past Surgical History / Comment(s): BSO, [place] NEUROMA LEFT FOOT, CYSTOCELE AND RECTOCELE REPAIR, angie hip Past Anesthesia/Blood Transfusion Reactions: No Reported Reaction Additional Past Anesthesia/Blood Transfusion Reaction / Comment(s): BLOOD TRANSFUSION WITH NO PROBLEM Past Psychological History: Depression Smoking Status: Never smoker Past Alcohol Use History: Rare Past Drug Use History: None Reported - Past Family History Mother Family Medical History: No Reported History Medications and Allergies Home Medications Medication Instructions Recorded Confirmed Type Escitalopram [Lexapro] 10 mg PO HS 03/14/21 08/20/22 History Pravastatin Sodium [Pravachol] 20 mg PO DAILY 03/14/21 08/20/22 History Biotin With Keratin 1 cap PO DAILY 06/11/22 08/20/22 History Cholecalciferol [Vitamin D3 (25 25 mcg PO DAILY 06/11/22 08/20/22 History Mcg = 1000 Iu)] Cyanocobalamin (Vitamin B-12) 1,000 mcg PO DAILY 06/11/22 08/20/22 History [Vitamin B-12] Furosemide [Lasix] 20 mg PO DAILY PRN 06/11/22 08/20/22 History Vitamin B Complex 1 cap PO DAILY 06/11/22 08/20/22 History rOPINIRole HCL [Requip] 0.5 mg PO PC-SUPPER 06/11/22 08/20/22 History HYDROcodone/APAP 5-325MG [[place] 1 - 2 tab PO Q6HR PRN #42 tab 06/16/22 08/20/22 Rx 5-325] Ubidecarenone [Coenzyme Q10] 100 mg PO DAILY 08/20/22 08/20/22 History hydrALAZINE HCL [Apresoline] 50 mg PO TID 08/20/22 08/20/22 History Allergies Allergy/AdvReac Type Severity Reaction Status Date / Time shellfish derived [Shrimp] Allergy Dyspnea Verified 08/20/22 18:03 Physical Exam Vitals: Vital Signs Temp Pulse Pulse Resp BP BP Pulse Ox 08/21/22 07:07 98.5 F 82 16 146/76 94 L 08/21/22 02:00 99.2 F 86 17 148/69 94 L 08/20/22 22:46 99.3 F 78 18 178/75 93 L 08/20/22 20:23 62 16 153/70 95 08/20/22 18:19 61 20 129/65 08/20/22 14:43 98.5 F 94 20 101/69 96 Intake and Output 08/20/22 08/21/22 08/21/22 22:59 06:59 14:59 Output Total 350 Balance -350 Output: Urine 350 Other: Weight 58.513 kg Results 08/21/22 07:41 08/21/22 07:45 Cardiac Enzymes 08/20/22 08/20/22 08/20/22 Range/Units 14:55 14:55 21:02 AST 34 (14-36) U/L Troponin I <0.012 <0.012 (0.000-0.034) ng/mL 08/21/22 Range/Units 00:43 AST (14-36) U/L Troponin I <0.012 (0.000-0.034) ng/mL Coagulation 08/20/22 Range/Units 18:21 PT 11.4 (9.0-12.0) sec APTT 33.2 H (22.0-30.0) sec CBC 08/20/22 08/21/22 Range/Units 14:55 07:41 WBC 2.8 L 2.4 L (3.8-10.6) k/uL RBC 4.18 3.81 (3.80-5.40) m/uL Hgb 12.6 11.7 (11.4-16.0) gm/dL Hct 38.4 35.4 (34.0-46.0) % Plt Count 352 297 (150-450) k/uL Comprehensive Metabolic Panel 08/20/22 Range/Units 14:55 Sodium 129 L (137-145) mmol/L Potassium 4.4 (3.5-5.1) mmol/L Chloride 93 L (98-107) mmol/L Carbon Dioxide 28 (22-30) mmol/L BUN 15 (7-17) mg/dL Creatinine 0.51 L (0.52-1.04) mg/dL Glucose 135 H (74-99) mg/dL Calcium 9.1 (8.4-10.2) mg/dL AST 34 (14-36) U/L ALT 18 (4-34) U/L Alkaline Phosphatase 70 (38-126) U/L Total Protein 7.9 (6.3-8.2) g/dL Albumin 3.8 (3.5-5.0) g/dL Current Medications Generic Name Dose Route Start Last Admin Trade Name Freq PRN Reason Stop Dose Admin Furosemide 20 mg 08/21/22 09:30 Furosemide 10 Mg/Ml 2 Ml Vial IV DAILY ANA Naloxone HCl 0.2 mg 08/20/22 20:54 Naloxone 0.4 Mg/Ml 1 Ml Vial IV Q2M PRN Opioid Reversal Prednisone 30 mg 08/21/22 09:30 Prednisone 10 Mg Tab PO DAILY ANA Intake and Output 08/20/22 08/21/22 08/21/22 22:59 06:59 14:59 Output Total 350 Balance -350 Output: Urine 350 Other: Weight 58.513 kg 08/21/22 07:41 08/20/22 14:55
[2022-08-21 14:01] VITALS: BMI 22.1
--- NOTE | 2022-08-21 14:40 | P.CNPUL ---
History of Present Illness Consult date: 08/21/22 Requesting physician: Pavithra Steele Reason for consult: dyspnea, chest pain Chief complaint: Shortness of breath, chest pain History of present illness: This is a very pleasant 77-year-old female patient with a known history of hypertension, hyperlipidemia, vascular headaches, depression, former smoker home chronic lower extremity edema. She presented here to the emergency room yesterday with complaints of increasing shortness of breath and dyspnea on exertion. She is also having some sharp chest pain with inhalation. She had been on Lasix in the outpatient setting but had stopped it as the swelling in her lower extremities had improved. She was using it on an as-needed basis. 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 Chest x-ray revealed some chronic changes but no acute pulmonary process. CT angiogram ruled out pulmonary embolism. There is trace pleural effusions with associated atelectasis. White count 2.4. Hemoglobin 11.7. Platelets 297. Sodium 131. P otassium 3.8. Chloride 94. BUN 15. Creatinine 0.5. Troponins negative 2. She is seen today in consultation on the regular medical floor. She is currently resting comfortably in bed. Awake and alert in no acute distress. Maintaining O2 saturations in the 90s on room air. No lower extremity edema. She does have sharp pain on inhalation. Review of Systems REVIEW OF SYSTEMS: CONSTITUTIONAL: Denies any recent significant weight loss or weight gain. EYES: Denies change in vision. EARS, NOSE, MOUTH, THROAT: Denies headaches, denies sore throat. CARDIOVASCULAR: Positive for sharp chest pain, no palpitations or syncopal episodes. RESPIRATORY: Positive for shortness of breath, no cough, congestion or hemoptysis. GASTROINTESTINAL: Denies change in appetite, denies abdominal pain GENITOURINARY: Denies hematuria, denies infections. MUSKULOSKELETAL: Denies pain, denies swelling. INTEGUMENTARY: Denies rash, denies eczema. NEUROLOGICAL: Denies recent memory loss, no recent seizure activity. PSYCHIATRIC: Denies anxiety, denies depression. HEMATOLOGIC/LYMPHATIC: Denies anemia, denies enlarged lymph nodes. Past Medical History Past Medical History: Hyperlipidemia, Hypertension, Osteoarthritis (OA) Additional Past Medical History / Comment(s): VASCULAR HEADACHES , VARICOSE VEINS. History of Any Multi-Drug Resistant Organisms: None Reported Past Surgical History: Adenoidectomy, Bladder Surgery, Bowel Resection, Hysterectomy, Joint Replacement, Tonsillectomy, Tubal Ligation Additional Past Surgical History / Comment(s): BSO, [place] NEUROMA LEFT FOOT, CYSTOCELE AND RECTOCELE REPAIR, angie hip Past Anesthesia/Blood Transfusion Reactions: No Reported Reaction Additional Past Anesthesia/Blood Transfusion Reaction / Comment(s): BLOOD TRANSFUSION WITH NO PROBLEM Past Psychological History: Depression Smoking Status: Never smoker Past Alcohol Use History: Rare Past Drug Use History: None Reported - Past Family History Mother Family Medical History: No Reported History Medications and Allergies Home Medications Medication Instructions Recorded Confirmed Type Escitalopram [Lexapro] 10 mg PO HS 03/14/21 08/20/22 History Pravastatin Sodium [Pravachol] 20 mg PO DAILY 03/14/21 08/20/22 History Biotin With Keratin 1 cap PO DAILY 06/11/22 08/20/22 History Cholecalciferol [Vitamin D3 (25 25 mcg PO DAILY 06/11/22 08/20/22 History Mcg = 1000 Iu)] Cyanocobalamin (Vitamin B-12) 1,000 mcg PO DAILY 06/11/22 08/20/22 History [Vitamin B-12] Furosemide [Lasix] 20 mg PO DAILY PRN 06/11/22 08/20/22 History Vitamin B Complex 1 cap PO DAILY 06/11/22 08/20/22 History rOPINIRole HCL [Requip] 0.5 mg PO PC-SUPPER 06/11/22 08/20/22 History HYDROcodone/APAP 5-325MG [Gary 1 - 2 tab PO Q6HR PRN #42 tab 06/16/22 08/20/22 Rx 5-325] Ubidecarenone [Coenzyme Q10] 100 mg PO DAILY 08/20/22 08/20/22 History hydrALAZINE HCL [Apresoline] 50 mg PO TID 08/20/22 08/20/22 History Allergies Allergy/AdvReac Type Severity Reaction Status Date / Time shellfish derived [Shrimp] Allergy Dyspnea Verified 08/20/22 18:03 Physical Exam Vitals: Vital Signs Temp Pulse Pulse Resp BP BP Pulse Ox 08/21/22 14:00 98.1 F 80 16 147/76 90 L 08/21/22 07:07 98.5 F 82 16 146/76 94 L 08/21/22 02:00 99.2 F 86 17 148/69 94 L 08/20/22 22:46 99.3 F 78 18 178/75 93 L 08/20/22 20:23 62 16 153/70 95 08/20/22 18:19 61 20 129/65 08/20/22 14:43 98.5 F 94 20 101/69 96 Intake and Output 08/20/22 08/21/22 08/21/22 22:59 06:59 14:59 Output Total 350 Balance -350 Output: Urine 350 Other: Voiding Method External Catheter Weight 58.513 kg 58.513 kg GENERAL EXAM: Alert, active, pleasant 77-year-old female, on room air, fairly comfortable in no apparent distress. HEAD: Normocephalic. EYES: Normal reaction of pupils, equal size. NOSE: Clear with pink turbinates. THROAT: No erythema or exudates. NECK: No masses, no JVD. CHEST: No chest wall deformity. LUNGS: Equal air entry with faint crackles in the posterior bases. CVS: S1 and S2 normal with no audible murmur, regular rhythm. ABDOMEN: No hepatosplenomegaly, normal bowel sounds, no guarding or rigidity. SPINE: No scoliosis or deformity SKIN: No rashes CENTRAL NERVOUS SYSTEM: No focal deficits, tone is normal in all 4 extremities. EXTREMITIES: There is no peripheral edema. No clubbing, no cyanosis. Peripheral pulses are intact. Results - Laboratory Findings CBC and BMP: 08/21/22 07:41 08/21/22 07:45 PT/INR, D-dimer PT 11.4 sec (9.0-12.0) 08/20/22 18:21 INR 1.1 (<1.2) 08/20/22 18:21 D-Dimer 3.45 mg/L FEU (<0.60) H 08/20/22 18:21 Abnormal lab findings: Abnormal Labs 08/20/22 08/20/22 08/20/22 14:55 14:55 18:21 WBC 2.8 L Neutrophils # (Manual) Lymphocytes # 0.6 L APTT 33.2 H D-Dimer 3.45 H Sodium 129 L Chloride 93 L Anion Gap Creatinine 0.51 L BUN/Creatinine Ratio Glucose 135 H Creatine Kinase <20 L Albumin Globulin Albumin/Globulin Ratio Ur Leukocyte Esterase Amorphous Sediment Urine Bacteria Urine Mucus 07/07/23 07/07/23 07/07/23 07:41 07:45 13:20 WBC 2.4 L Neutrophils # (Manual) 1.01 L Lymphocytes # APTT D-Dimer Sodium 131 L Chloride 94 L Anion Gap 13.10 H Creatinine 0.5 L BUN/Creatinine Ratio 30.00 H Glucose Creatine Kinase Albumin 3.5 L Globulin 3.4 H Albumin/Globulin Ratio 1.03 L Ur Leukocyte Esterase Trace H Amorphous Sediment Rare H Urine Bacteria Few H Urine Mucus Rare H - Diagnostic Findings Chest x-ray: image reviewed CT scan - chest: image reviewed Assessment and Plan Assessment: Dyspnea and sharp chest pain on inhalation, suspect coxsackie B virus. Pulmonary embolism ruled out History of lower extremity edema on Lasix in the outpatient setting had not been taking it due to decreased edema History of depression Former smoker Hyperlipidemia History of hypertension History of vascular headaches Plan: The patient was seen and evaluated Chest x-ray, CT angiogram, labs and medications reviewed Initiated on Lasix 20 mg IVP 1 Initiated on a prednisone taper Stable and on room air Probable discharge in the a.m. We will continue to follow and make further recommendations based on her clinical status I have personally seen and examined the patient, performed the documentation and the assessment and plan as written. Number of minutes spent on the visit: 20.
[2022-08-21] MEDS: hydrALAZINE HCL 50 MG TAB PO SCH ×2 (16:18→22:23)
[2022-08-21] MEDS: HYDROcodone/APAP 5-325MG 1 EACH TAB PO PRN ×2 (16:18→22:29)
[2022-08-21] MEDS ORDERED: ESCITALOPRAM 10 MG TAB PO SCH (21:00)
[2022-08-22] MEDS: CYANOCOBALAMIN 500 MCG TAB PO SCH (08:23)
[2022-08-22] MEDS: PRAVASTATIN SODIUM 20 MG TAB PO SCH (08:23)
[2022-08-22] MEDS: HYDROcodone/APAP 5-325MG 1 EACH TAB PO PRN ×3 (08:24→23:32)
[2022-08-22] MEDS: hydrALAZINE HCL 50 MG TAB PO SCH ×3 (08:24→22:26)
[2022-08-22] MEDS: CHOLECALCIFEROL 25 MCG (1000 IU) TABLET PO SCH (08:24)
[2022-08-22] MEDS: predniSONE 10 MG TAB PO SCH (08:35)
[2022-08-22] MEDS: ESCITALOPRAM 10 MG TAB PO SCH (08:36)
[2022-08-22] MEDS ORDERED: NON FORMULARY DRUG (Vitamin B Complex [Vitamin B Complex] 1 EACH Capsule) PO SCH (09:00)
[2022-08-22] MEDS ORDERED: NON FORMULARY DRUG (Ubidecarenone [Coenzyme Q10] 50 MG Capsule) PO SCH (09:00)
--- NOTE | 2022-08-22 12:33 | P.PN ---
Subjective Progress Note Date: 08/22/22 Principal diagnosis: Shortness of breath. This is a very pleasant 77-year-old female patient with a known history of hypertension, hyperlipidemia, vascular headaches, depression, former smoker home chronic lower extremity edema. She presented here to the emergency room yesterday with complaints of increasing shortness of breath and dyspnea on exertion. She is also having some sharp chest pain with inhalation. She had been on Lasix in the outpatient setting but had stopped it as the swelling in her lower extremities had improved. She was using it on an as-needed basis. 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 Chest x-ray revealed some chronic changes but no acute pulmonary process. CT angiogram ruled out pulmonary embolism. There is trace pleural effusions with associated atelectasis. White count 2.4. Hemoglobin 11.7. Platelets 297. Sodium 131. Potassium 3.8. Chloride 94. BUN 15. Creatinine 0.5. Troponins negative 2. She is seen today in consultation on the regular medical floor. She is currently resting comfortably in bed. Awake and alert in no acute distress. Maintaining O2 saturations in the 90s on room air. No lower extremity edema. She does have sharp pain on inhalation. Progress note dated 08/22/2022. This is a 77-year-old female who was seen in room 459. The patient complained of shortness of breath, as well as a sharp chest pain, worse on deep breathing. We thought she had 2 issues going on, including mild fluid overload, explaining her shortness of breath, as well as viral pleurisy, likely caused by coxsackie B infection, causing her pleuritic chest pain. We recommended reinitiation of diuretics. We also recommended some prednisone for the pleurisy. Currently, she is on room air. She's not receiving any IV fluids. The patient could likely be discharged home in the near future. No new labs today to speak of. Objective - Vital Signs Vital signs: Vital Signs Temp 97.8 F 08/22/22 08:16 Pulse 63 08/22/22 08:16 Resp 18 08/22/22 08:16 BP 102/58 08/22/22 08:16 Pulse Ox 93 L 08/22/22 08:16 FiO2 Intake & Output 07/07/23 07/08/23 07/08/23 18:59 06:59 18:59 Intake Total 240 118 Output Total 400 500 Balance -160 -500 118 Weight 58.513 kg Intake: Oral 240 118 Output: Urine 400 500 Other: Voiding Method External Catheter - Exam No acute distress, oriented 3. No respiratory distress. No audible wheezing. No use of accessory muscles. Room air saturation 96%. HEENT examination is grossly unremarkable. Neck supple. Full range of motion. No adenopathy thyromegaly or neck vein distention. Cardiovascular examination reveals regular rhythm rate. S1-S2 normal. No S3 or S4. No discernible murmur noted. Heart rate 63 bpm. Lungs reveal clear breath sounds. Breath sounds are equal bilaterally. No adventitious lung sounds including wheezes rhonchi or crackles. Abdomen soft bowel sounds are heard. No masses or tenderness. Extremities are intact. No cyanosis clubbing or edema. Skin is without rash or lesion. Neurologic examination is brief but nonfocal. - Labs CBC & Chem 7: 08/21/22 07:41 08/21/22 07:45 Labs: Abnormal Lab Results - Last 24 Hours (Table) 08/21/22 Range/Units 13:20 Ur Leukocyte Esterase Trace H (Negative) Amorphous Sediment Rare H (None) /hpf Urine Bacteria Few H (None) /hpf Urine Mucus Rare H (None) /hpf Assessment and Plan Assessment: Dyspnea and sharp chest pain on inhalation, suspect coxsackie B virus. Pulmonary embolism ruled out. History of lower extremity edema on Lasix in the outpatient setting had not been taking it due to decreased edema. History of depression. Former smoker. Hyperlipidemia. History of hypertension. History of vascular headaches. Plan: Plan dated 08/22/2022. The patient could be considered for discharge, on a tapering dose of prednisone. We believe her sharp chest pain on deep inspiration, relates to viral pleurisy or dry pleurisy, likely related to coxsackie B infection. This should respond to a combination of steroids, and nonsteroid anti-inflammatory drugs. In addition, we thought the patient could be started on a small dose of Lasix, for shortness of breath. Her lower extremity edema seemed to respond very nicely to it. We will leave that up to cardiology, and the primary service. No additional recommendations are made. Labs, x-rays, and medications are reviewed. Time with Patient: Less than 30
[2022-08-23] MEDS: HYDROcodone/APAP 5-325MG 1 EACH TAB PO PRN ×3 (06:09→18:44)
[2022-08-23 09:06] LABS: HCT 33.9 % (37.2-46.3); HGB 11.5 d/dL (12.0-15.0); MCH 30.6 pg (27.0-32.0); MCHC 33.9 d/dL (32.0-37.0); MCV 90.2 FL (80.0-97.0); Mean Platelet Volume 9.7 FL (9.5-12.2); NRBC Per 100 WBC 0 X 10*3/uL (0.00-0.01); Platelet Count 333 X 10*3/uL (140-440); RBC 3.76 X 10*6/uL (4.10-5.20); RDW 12.6 % (11.5-14.5); WBC 2.19 X 10*3/uL (4.50-10.00)
[2022-08-23] MEDS: CHOLECALCIFEROL 25 MCG (1000 IU) TABLET PO SCH (09:09)
[2022-08-23] MEDS: CYANOCOBALAMIN 500 MCG TAB PO SCH (09:09)
[2022-08-23] MEDS: hydrALAZINE HCL 50 MG TAB PO SCH ×3 (09:09→21:27)
[2022-08-23] MEDS: ESCITALOPRAM 10 MG TAB PO SCH (09:09)
[2022-08-23] MEDS: PRAVASTATIN SODIUM 20 MG TAB PO SCH (09:09)
[2022-08-23] MEDS: predniSONE 10 MG TAB PO SCH (09:09)
[2022-08-23 09:49] LABS: Blood Urea Nitrogen 18.8 mg/dL (9.0-27.0); Carbon Dioxide 27.6 mmol/L (21.6-31.8); Chloride 87 mmol/L (96-109); Glucose 105 mg/dL (70-110); Potassium 4.5 mmol/L (3.5-5.5); Sodium 125 mmol/L (135-145)
[2022-08-23 09:52] LABS: Basophils # (A) 0.01 X 10*3/uL (0.00-0.10); Basophils % (A) 0.5 %; Eosinophils # (A) 0.04 X 10*3/uL (0.04-0.35); Eosinophils % (A) 1.8 %; Lymphocytes # (A) 0.75 X 10*3/uL (0.90-5.00); Lymphocytes % (A) 34.2 %; Monocytes # (A) 0.55 X 10*3/uL (0.20-1.00); Monocytes % (A) 25.1 %; Neutrophils # (A) 0.83 X 10*3/uL (1.80-7.70); Neutrophils % (A) 37.9 %
--- NOTE | 2022-08-23 12:03 | P.PN ---
Subjective Progress Note Date: 08/23/22 Principal diagnosis: Shortness of breath. This is a very pleasant 77-year-old female patient with a known history of hypertension, hyperlipidemia, vascular headaches, depression, former smoker home chronic lower extremity edema. She presented here to the emergency room yesterday with complaints of increasing shortness of breath and dyspnea on exertion. She is also having some sharp chest pain with inhalation. She had been on Lasix in the outpatient setting but had stopped it as the swelling in her lower extremities had improved. She was using it on an as-needed basis. 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 Chest x-ray revealed some chronic changes but no acute pulmonary process. CT angiogram ruled out pulmonary embolism. There is trace pleural effusions with associated atelectasis. White count 2.4. Hemoglobin 11.7. Platelets 297. Sodium 131. Potassium 3.8. Chloride 94. BUN 15. Creatinine 0.5. Troponins negative 2. She is seen today in consultation on the regular medical floor. She is currently resting comfortably in bed. Awake and alert in no acute distress. Maintaining O2 saturations in the 90s on room air. No lower extremity edema. She does have sharp pain on inhalation. Progress note dated 08/22/2022. This is a 77-year-old female who was seen in room 459. The patient complained of shortness of breath, as well as a sharp chest pain, worse on deep breathing. We thought she had 2 issues going on, including mild fluid overload, explaining her shortness of breath, as well as viral pleurisy, likely caused by coxsackie B infection, causing her pleuritic chest pain. We recommended reinitiation of diuretics. We also recommended some prednisone for the pleurisy. Currently, she is on room air. She's not receiving any IV fluids. The patient could likely be discharged home in the near future. No new labs today to speak of. Progress note dated 08/23/2022. 77-year-old female seen for shortness of breath and sharp chest pain. The patient is currently resting comfortably, in room 459. She remains on room air. Her sharp pleuritic-type chest pain, is improved but not completely gone. We recommended prednisone. She's not receiving any IV fluids. Current labs include a white count of 2.19, hemoglobin 11.5, hematocrit 33.9, and platelet count 333,000. Sodium 125, potassium 4.5, chloride 87, CO2 28, BUN 18.8, and creatinine 0.5. Objective - Vital Signs Vital signs: Vital Signs Temp 97.7 F 08/23/22 07:46 Pulse 64 08/23/22 07:46 Resp 17 08/23/22 07:46 BP 161/69 08/23/22 07:46 Pulse Ox 98 08/23/22 09:07 FiO2 Intake & Output 08/22/22 08/23/22 08/23/22 18:59 06:59 18:59 Intake Total 118 Output Total 900 1500 Balance -782 -1500 Intake: Oral 118 Output: Urine 900 1500 Other: Voiding Method External Catheter - Exam No acute distress, oriented 3. No respiratory distress. No audible wheezing. No use of accessory muscles. Room air saturation 98 %. HEENT examination is grossly unremarkable. Neck supple. Full range of motion. No adenopathy thyromegaly or neck vein distention. Cardiovascular examination reveals regular rhythm rate. S1-S2 normal. No S3 or S4. No discernible murmur noted. Heart rate 64 bpm. Lungs reveal clear breath sounds. Breath sounds are equal bilaterally. No adventitious lung sounds including wheezes rhonchi or crackles. Abdomen soft bowel sounds are heard. No masses or tenderness. Extremities are intact. No cyanosis clubbing or edema. Skin is without rash or lesion. Neurologic examination is brief but nonfocal. - Labs CBC & Chem 7: 08/23/22 03:56 08/23/22 03:56 Labs: Abnormal Lab Results - Last 24 Hours (Table) 08/23/22 08/23/22 Range/Units 03:56 03:56 WBC 2.19 L (4.50-10.00) X 10*3/uL RBC 3.76 L (4.10-5.20) X 10*6/uL Hgb 11.5 L (12.0-15.0) d/dL Hct 33.9 L (37.2-46.3) % Neutrophils # 0.83 L (1.80-7.70) X 10*3/uL Lymphocytes # 0.75 L (0.90-5.00) X 10*3/uL Sodium 125 L (135-145) mmol/L Chloride 87 L (96-109) mmol/L Creatinine 0.5 L (0.6-1.5) mg/dL BUN/Creatinine Ratio 37.60 H (12.00-20.00) Ratio Assessment and Plan Assessment: Dyspnea and sharp chest pain on inhalation, suspect viral pleurisy/dry pleurisy secondary to Coxsackie B infection. Pulmonary embolism ruled out. History of lower extremity edema on Lasix in the outpatient setting had not been taking it due to decreased edema. History of depression. Former smoker. Hyperlipidemia. History of hypertension. History of vascular headaches. Plan: Plan dated 08/22/2022. The patient could be considered for discharge, on a tapering dose of prednisone. We believe her sharp chest pain on deep inspiration, relates to viral pleurisy or dry pleurisy, likely related to coxsackie B infection. This should respond to a combination of steroids, and nonsteroid anti-inflammatory drugs. In addition, we thought the patient could be started on a small dose of Lasix, for shortness of breath. Her lower extremity edema seemed to respond very nicely to it. We will leave that up to cardiology, and the primary service. No additional recommendations are made. Labs, x-rays, and medications are reviewed. Plan dated 08/23/2022. The patient continues on room air. The patient's chest pain is improved. We added prednisone. Additional recommendations and suggestions are forthcoming. Labs, x-rays, and medications are reviewed. We will continue to follow. Prognosis is guarded. Time with Patient: Less than 30
--- NOTE | 2022-08-23 12:47 | P.HPIM ---
History of Present Illness H&P Date: 08/20/22 Chief Complaint: Shortness of breath 77-year-old female presenting to the emergency department with concerns for dyspnea. Symptoms have progressed mostly over the past week. Patient has exertional dyspnea. No chest pain. Patient has had decreased appetite recently. Patient has lost around 20 pounds in the past month. Patient has increased fatigue. No cough. No leg pain or leg swelling. Patient did stop taking medications week ago. Patient has not getting out of her chair much. EKG reveals sinus mechanism with no signs of acute ischemia Chest CT: Negative for pulmonary embolism Chest xray chronic changes without acute pulmonary process. No significant change from prior Laboratory data: WBC 2.4. Hemoglobin 11.7. Platelet count 297. D-dimer 3.45. Sodium 131. Potassium 3.8. BUN 15. Creatinine 0.5. Troponin negative 3. ProBNP 2800. Most recent echocardiogram obtained in May 2022 revealed normal ejection fraction, mild to moderate MR, mild to moderate TR Patient underwent Lexiscan stress test in May 2022 was negative for skin anemia Patient was seen and evaluated in ED on 08/20/2022 Review of Systems REVIEW OF SYSTEMS: CONSTITUTIONAL: No fever, no malaise, no fatigue. HEENT: No recent visual problems or hearing problems. Denied any sore throat. CARDIOVASCULAR: No chest pain, orthopnea, PND, no palpitations, no syncope. PULMONARY: No shortness of breath, no cough, no hemoptysis. GASTROINTESTINAL: No diarrhea, no nausea, no vomiting, no abdominal pain. NEUROLOGICAL: No headaches, no weakness, no numbness. HEMATOLOGICAL: Denies any bleeding or petechiae. GENITOURINARY: Denies any burning micturition, frequency, or urgency. MUSCULOSKELETAL/RHEUMATOLOGICAL: Denies any joint pain, swelling, or any muscle pain. ENDOCRINE: Denies any polyuria or polydipsia. The rest of the 14-point review of systems is negative. Past Medical History Past Medical History: Hyperlipidemia, Hypertension, Osteoarthritis (OA) Additional Past Medical History / Comment(s): VASCULAR HEADACHES , VARICOSE VEINS. History of Any Multi-Drug Resistant Organisms: None Reported Past Surgical History: Adenoidectomy, Bladder Surgery, Bowel Resection, Hysterectomy, Joint Replacement, Tonsillectomy, Tubal Ligation Additional Past Surgical History / Comment(s): BSO, [place] NEUROMA LEFT FOOT, CYSTOCELE AND RECTOCELE REPAIR, angie hip Past Anesthesia/Blood Transfusion Reactions: No Reported Reaction Additional Past Anesthesia/Blood Transfusion Reaction / Comment(s): BLOOD TRANSFUSION WITH NO PROBLEM Past Psychological History: Depression Smoking Status: Never smoker Past Alcohol Use History: Rare Past Drug Use History: None Reported - Past Family History Mother Family Medical History: No Reported History Medications and Allergies Home Medications Medication Instructions Recorded Confirmed Type Escitalopram [Lexapro] 10 mg PO HS 03/14/21 08/20/22 History Pravastatin Sodium [Pravachol] 20 mg PO DAILY 03/14/21 08/20/22 History Biotin With Keratin 1 cap PO DAILY 06/11/22 08/20/22 History Cholecalciferol [Vitamin D3 (25 25 mcg PO DAILY 06/11/22 08/20/22 History Mcg = 1000 Iu)] Cyanocobalamin (Vitamin B-12) 1,000 mcg PO DAILY 06/11/22 08/20/22 History [Vitamin B-12] Furosemide [Lasix] 20 mg PO DAILY PRN 06/11/22 08/20/22 History Vitamin B Complex 1 cap PO DAILY 06/11/22 08/20/22 History rOPINIRole HCL [Requip] 0.5 mg PO PC-SUPPER 06/11/22 08/20/22 History HYDROcodone/APAP 5-325MG [[place] 1 - 2 tab PO Q6HR PRN #42 tab 06/16/22 08/20/22 Rx 5-325] Ubidecarenone [Coenzyme Q10] 100 mg PO DAILY 08/20/22 08/20/22 History hydrALAZINE HCL [Apresoline] 50 mg PO TID 08/20/22 08/20/22 History Allergies Allergy/AdvReac Type Severity Reaction Status Date / Time shellfish derived [Shrimp] Allergy Dyspnea Verified 08/20/22 18:03 Physical Exam Vitals: Vital Signs Temp Pulse Pulse Resp BP BP Pulse Ox 08/21/22 07:07 98.5 F 82 16 146/76 94 L 08/21/22 02:00 99.2 F 86 17 148/69 94 L 08/20/22 22:46 99.3 F 78 18 178/75 93 L 08/20/22 20:23 62 16 153/70 95 08/20/22 18:19 61 20 129/65 08/20/22 14:43 98.5 F 94 20 101/69 96 Intake and Output 08/20/22 08/21/22 08/21/22 22:59 06:59 14:59 Output Total 350 Balance -350 Output: Urine 350 Other: Voiding Method External Catheter Weight 58.513 kg PHYSICAL EXAMINATION: GENERAL: The patient is alert and oriented x3, not in any acute distress. Well developed, well nourished. HEENT: Pupils are round and equally reacting to light. EOMI. No scleral icterus. No conjunctival pallor. Normocephalic, atraumatic. No pharyngeal erythema. No thyromegaly. CARDIOVASCULAR: S1 and S2 present. No murmurs, rubs, or gallops. PULMONARY: Chest is clear to auscultation, no wheezing or crackles. ABDOMEN: Soft, nontender, nondistended, normoactive bowel sounds. No palpable organomegaly. MUSCULOSKELETAL: No joint swelling or deformity. EXTREMITIES: No cyanosis, clubbing, or pedal edema. NEUROLOGICAL: Gross neurological examination did not reveal any focal deficits. SKIN: No rashes. Results CBC & Chem 7: 08/23/22 03:56 08/23/22 03:56 Labs: Abnormal Lab Results - Last 24 Hours (Table) 08/20/22 08/20/22 08/20/22 Range/Units 14:55 14:55 18:21 WBC 2.8 L (3.8-10.6) k/uL Neutrophils # (Manual) (1.3-7.7) k/uL Lymphocytes # 0.6 L (1.0-4.8) k/uL APTT 33.2 H (22.0-30.0) sec D-Dimer 3.45 H (<0.60) mg/L FEU Sodium 129 L (137-145) mmol/L Chloride 93 L (98-107) mmol/L Anion Gap (4.00-12.00) mmol/L Creatinine 0.51 L (0.52-1.04) mg/dL BUN/Creatinine Ratio (12.00-20.00) Ratio Glucose 135 H (74-99) mg/dL Creatine Kinase <20 L (30-135) U/L Albumin (3.8-4.9) d/dL Globulin (1.6-3.3) d/dL Albumin/Globulin Ratio (1.60-3.17) Ratio 08/21/22 08/21/22 Range/Units 07:41 07:45 WBC 2.4 L (3.8-10.6) k/uL Neutrophils # (Manual) 1.01 L (1.3-7.7) k/uL Lymphocytes # (1.0-4.8) k/uL APTT (22.0-30.0) sec D-Dimer (<0.60) mg/L FEU Sodium 131 L (137-145) mmol/L Chloride 94 L (98-107) mmol/L Anion Gap 13.10 H (4.00-12.00) mmol/L Creatinine 0.5 L (0.52-1.04) mg/dL BUN/Creatinine Ratio 30.00 H (12.00-20.00) Ratio Glucose (74-99) mg/dL Creatine Kinase (30-135) U/L Albumin 3.5 L (3.8-4.9) d/dL Globulin 3.4 H (1.6-3.3) d/dL Albumin/Globulin Ratio 1.03 L (1.60-3.17) Ratio Thrombosis Risk Factor Assmnt - Choose All That Apply Each Factor Represents 1 point: Abnormal pulmonary function (COPD) Other Risk Factors: Yes Each Risk Factor Represents 3 Points: Age 75 years or older Thrombosis Risk Factor Assessment Total Risk Factor Score: 4 Thrombosis Risk Factor Assessment Level: Moderate Risk Assessment and Plan Assessment: 1. Exertional dyspnea - Patient does have an elevated BNP of 2800; chest x-ray is negative for any acute process or pulmonary vascular congestion - Patient did have cardiac workup completed in May 2022 with echocardiogram which revealed normal EF with mild to moderate mitral regurg and tricuspid regurg; Lasix again stress test was also done at that time which was negative for reversible ischemia - D-dimer is elevated at 3.45; CT chest was completed which was negative for PE - Patient did receive 1 dose of IV Lasix in ED - We will consult cardiology and pulmonary for further evaluation and recommendations 2. Hypertension; hydralazine 50 mg by mouth 3 times a day 3. Hyperlipidemia; Pravachol 20 mg daily 4. Restless legs syndrome; Requip 0.5 mg daily at bedtime 5. Vitamin D deficiency; continue with home dose of vitamin D3 thousand units daily 6. Vitamin B12 deficiency; patient is currently on vitamin B12 thousand MCG daily 7. Depression; Lexapro 10 mg daily DVT prophylaxis; SCDs CODE STATUS; full code
--- NOTE | 2022-08-23 17:47 | P.PN ---
Subjective Progress Note Date: 08/23/22 77-year-old female presenting to the emergency department with concerns for dyspnea. Symptoms have progressed mostly over the past week. Patient has exertional dyspnea. No chest pain. Patient has had decreased appetite recently. Patient has lost around 20 pounds in the past month. Patient has increased fatigue. No cough. No leg pain or leg swelling. Patient did stop taking medications week ago. Patient has not getting out of her chair much. EKG reveals sinus mechanism with no signs of acute ischemia Chest CT: Negative for pulmonary embolism Chest xray chronic changes without acute pulmonary process. No significant change from prior Laboratory data: WBC 2.4. Hemoglobin 11.7. Platelet count 297. D-dimer 3.45. Sodium 131. Potassium 3.8. BUN 15. Creatinine 0.5. Troponin negative 3. ProBNP 2800. Most recent echocardiogram obtained in May 2022 revealed normal ejection fraction, mild to moderate MR, mild to moderate TR Patient underwent Lexiscan stress test in May 2022 was negative for skin anemia 08/23/2022 Patient is seen and evaluated resting in bed; continues to complain of shortness of breath with minimal activity Vital signs are reviewed and stable with temperature of 97.7, pulse 64, respirations 17 and blood pressure 161 with extended O2 saturation of 94% on room air -- Patient has been evaluated by cardiology for exertional dyspnea; recent Lexiscan stress test completed in May 2022 and echocardiogram have been unremarkable; cardiology recommending to continue current medication with no further workup needed; patient has been placed on IV Lasix for pulmonary service; cardiology not convinced of volume overload and deciding use of Lasix to pulmonary; patient does report improvement in symptoms with IV Lasix, we will plan to continue Lasix for another 24 hours with close monitoring of renal function and electrolytes, strict BRIGIDA's; patient also placed on prednisone for bronchospasm given suspicion of viral upper respiratory infection -- Possible discharge in next 24 hours with discontinuation off IV Lasix and quick taper off oral steroids Objective - Vital Signs Vital signs: Vital Signs Temp 97.7 F 08/23/22 07:46 Pulse 64 08/23/22 07:46 Resp 17 08/23/22 07:46 BP 161/69 08/23/22 07:46 Pulse Ox 98 08/23/22 09:07 FiO2 Intake & Output 08/22/22 08/23/22 08/23/22 18:59 06:59 18:59 Intake Total 118 Output Total 900 1500 Balance -782 -1500 Intake: Oral 118 Output: Urine 900 1500 Other: Voiding Method External Catheter - Exam PHYSICAL EXAMINATION: GENERAL: The patient is alert and oriented x3, not in any acute distress. Well developed, well nourished. HEENT: Pupils are round and equally reacting to light. EOMI. No scleral icterus. No conjunctival pallor. Normocephalic, atraumatic. No pharyngeal erythema. No thyromegaly. CARDIOVASCULAR: S1 and S2 present. No murmurs, rubs, or gallops. PULMONARY: Chest is clear to auscultation, no wheezing or crackles. ABDOMEN: Soft, nontender, nondistended, normoactive bowel sounds. No palpable organomegaly. MUSCULOSKELETAL: No joint swelling or deformity. EXTREMITIES: No cyanosis, clubbing, or pedal edema. NEUROLOGICAL: Gross neurological examination did not reveal any focal deficits. SKIN: No rashes. - Labs CBC & Chem 7: 08/23/22 03:56 08/23/22 03:56 Labs: Abnormal Lab Results - Last 24 Hours (Table) 08/23/22 08/23/22 Range/Units 03:56 03:56 WBC 2.19 L (4.50-10.00) X 10*3/uL RBC 3.76 L (4.10-5.20) X 10*6/uL Hgb 11.5 L (12.0-15.0) d/dL Hct 33.9 L (37.2-46.3) % Neutrophils # 0.83 L (1.80-7.70) X 10*3/uL Lymphocytes # 0.75 L (0.90-5.00) X 10*3/uL Sodium 125 L (135-145) mmol/L Chloride 87 L (96-109) mmol/L Creatinine 0.5 L (0.6-1.5) mg/dL BUN/Creatinine Ratio 37.60 H (12.00-20.00) Ratio Assessment and Plan Assessment: 1. Exertional dyspnea - Patient does have an elevated BNP of 2800; chest x-ray is negative for any acute process or pulmonary vascular congestion - Patient did have cardiac workup completed in May 2022 with echocardiogram which revealed normal EF with mild to moderate mitral regurg and tricuspid regurg; Lasix again stress test was also done at that time which was negative for reversible ischemia - D-dimer is elevated at 3.45; CT chest was completed which was negative for PE - Patient did receive 1 dose of IV Lasix in ED - We will consult cardiology and pulmonary for further evaluation and recommendations 2. Hypertension; hydralazine 50 mg by mouth 3 times a day 3. Hyperlipidemia; Pravachol 20 mg daily 4. Restless legs syndrome; Requip 0.5 mg daily at bedtime 5. Vitamin D deficiency; continue with home dose of vitamin D3 thousand units daily 6. Vitamin B12 deficiency; patient is currently on vitamin B12 thousand MCG daily 7. Depression; Lexapro 10 mg daily DVT prophylaxis; SCDs CODE STATUS; full code
[2022-08-24] MEDS: HYDROcodone/APAP 5-325MG 1 EACH TAB PO PRN ×3 (00:36→17:43)
[2022-08-24] MEDS: CYANOCOBALAMIN 500 MCG TAB PO SCH (10:17)
[2022-08-24] MEDS: CHOLECALCIFEROL 25 MCG (1000 IU) TABLET PO SCH (10:17)
[2022-08-24] MEDS: PRAVASTATIN SODIUM 20 MG TAB PO SCH (10:17)
[2022-08-24] MEDS: predniSONE 10 MG TAB PO SCH (10:17)
[2022-08-24] MEDS: hydrALAZINE HCL 50 MG TAB PO SCH ×3 (10:17→21:43)
[2022-08-24] MEDS: ESCITALOPRAM 10 MG TAB PO SCH (10:18)
[2022-08-24 12:26] LABS: African American GFR (CKD) >90 (>60 ml/min/1.73 sqM); Anion Gap 10 mmol/L; Blood Urea Nitrogen 15 mg/dL (7-17); Calcium 8.9 mg/dL (8.4-10.2); Carbon Dioxide 30 mmol/L (22-30); Chloride 89 mmol/L (98-107); Glucose 121 mg/dL (74-99); Non-African American GFR(CKD) 89 (>60 ml/min/1.73 sqM); Sodium 129 mmol/L (137-145)
[2022-08-24 12:27] LABS: Potassium 3.5 mmol/L (3.5-5.1)
--- NOTE | 2022-08-24 13:46 | P.PN ---
Subjective Progress Note Date: 08/24/22 77-year-old female presenting to the emergency department with concerns for dyspnea. Symptoms have progressed mostly over the past week. Patient has exertional dyspnea. No chest pain. Patient has had decreased appetite recently. Patient has lost around 20 pounds in the past month. Patient has increased fatigue. No cough. No leg pain or leg swelling. Patient did stop taking medications week ago. Patient has not getting out of her chair much. EKG reveals sinus mechanism with no signs of acute ischemia Chest CT: Negative for pulmonary embolism Chest xray chronic changes without acute pulmonary process. No significant change from prior Laboratory data: WBC 2.4. Hemoglobin 11.7. Platelet count 297. D-dimer 3.45. Sodium 131. Potassium 3.8. BUN 15. Creatinine 0.5. Troponin negative 3. ProBNP 2800. Most recent echocardiogram obtained in May 2022 revealed normal ejection fraction, mild to moderate MR, mild to moderate TR Patient underwent Lexiscan stress test in May 2022 was negative 08/23/2022 Patient is seen and evaluated resting in bed; continues to complain of shortness of breath with minimal activity Vital signs are reviewed and stable with temperature of 97.7, pulse 64, respirations 17 and blood pressure 161 with extended O2 saturation of 94% on room air -- Patient has been evaluated by cardiology for exertional dyspnea; recent Lexiscan stress test completed in May 2022 and echocardiogram have been unremarkable; cardiology recommending to continue current medication with no further workup needed; patient has been placed on IV Lasix for pulmonary service; cardiology not convinced of volume overload and deciding use of Lasix to pulmonary; patient does report improvement in symptoms with IV Lasix, we will plan to continue Lasix for another 24 hours with close monitoring of renal function and electrolytes, strict BRIGIDA's; patient also placed on prednisone for bronchospasm given suspicion of viral upper respiratory infection -- Possible discharge in next 24 hours with discontinuation off IV Lasix and jim ck taper off oral steroids 08/24. Patient seen and examined . States she feels much better, shortness of breath improved. Denies any swelling of feet REVIEW OF SYSTEMS: CONSTITUTIONAL: No fever, no malaise,. CARDIOVASCULAR: No chest pain, no palpitations, no syncope. PULMONARY: No shortness of breath, no cough, GASTROINTESTINAL: No diarrhea, no nausea, no vomiting, no abdominal pain. NEUROLOGICAL: No headaches, no weakness, PHYSICAL EXAMINATION: GENERAL: The patient is alert and oriented x3, not in any acute distress. Well developed, well nourished. HEENT: Pupils are round and equally reacting to light. EOMI. No scleral icterus. No conjunctival pallor. Normocephalic, atraumatic. No pharyngeal erythema. No thyromegaly. CARDIOVASCULAR: S1 and S2 present. No murmurs, rubs, or gallops. PULMONARY: Chest is clear to auscultation, no wheezing or crackles. ABDOMEN: Soft, nontender, nondistended, normoactive bowel sounds. No palpable organomegaly. MUSCULOSKELETAL: No joint swelling or deformity. EXTREMITIES: No cyanosis, clubbing, or pedal edema. NEUROLOGICAL: Gross neurological examination did not reveal any focal deficits. SKIN: No rashes. Assessment and plan 1. Exertional dyspnea - Patient does have an elevated BNP of 2800; chest x-ray is negative for any acute process or pulmonary vascular congestion - Patient did have cardiac workup completed in May 2022 with echocardiogram which revealed normal EF with mild to moderate mitral regurg and tricuspid regurg; Lasix again stress test was also done at that time which was negative for reversible ischemia - D-dimer is elevated at 3.45; CT chest was completed which was negative for PE - Continue Lasix Follow-up on pulmonary recommendations follow-up in cardiology recommendations Follow-up on PT and OT recommendations 2. Hypertension; hydralazine 50 mg by mouth 3 times a day 3. Hyperlipidemia; Pravachol 20 mg daily 4. Restless legs syndrome; Requip 0.5 mg daily at bedtime 5. Vitamin D deficiency; continue with home dose of vitamin D3 thousand units daily 6. Vitamin B12 deficiency; patient is currently on vitamin B12 thousand MCG daily 7. Depression; Lexapro 10 mg daily Labs and medication were reviewed.. Continue same treatment. Continue with symptomatic treatment. Resume home medication. Monitor labs and vitals. DVT and GI prophylaxis. Further recommendations as per clinical course of the patient Objective - Vital Signs Vital signs: Vital Signs Temp 97.6 F 08/24/22 06:49 Pulse 44 L 08/24/22 06:49 Resp 16 08/24/22 06:49 BP 157/67 08/24/22 06:49 Pulse Ox 96 08/24/22 09:04 FiO2 Intake & Output 07/11/0708/24/22 08/24/22 18:59 06:59 18:59 Output Total 2100 Balance -2100 Output: Urine 2100 Other: Voiding Method External Catheter # Voids 1 - Labs CBC & Chem 7: 08/23/22 03:56 08/24/22 10:28
--- NOTE | 2022-08-24 15:09 | P.PN ---
Subjective Progress Note Date: 08/24/22 This is a very pleasant 77-year-old female patient with a known history of hypertension, hyperlipidemia, vascular headaches, depression, former smoker home chronic lower extremity edema. She presented here to the emergency room yesterday with complaints of increasing shortness of breath and dyspnea on e xertion. She is also having some sharp chest pain with inhalation. She had been on Lasix in the outpatient setting but had stopped it as the swelling in her lower extremities had improved. She was using it on an as-needed basis. 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 Chest x-ray revealed some chronic changes but no acute pulmonary process. CT angiogram ruled out pulmonary embolism. There is trace pleural effusions with associated atelectasis. White count 2.4. Hemoglobin 11.7. Platelets 297. Sodium 131. Potassium 3.8. Chloride 94. BUN 15. Creatinine 0.5. Troponins negative 2. She is seen today in consultation on the regular medical floor. She is currently resting comfortably in bed. Awake and alert in no acute distress. Maintaining O2 saturations in the 90s on room air. No lower extremity edema. She does have sharp pain on inhalation. Progress note dated 08/22/2022. This is a 77-year-old female who was seen in room 459. The patient complained of shortness of breath, as well as a sharp chest pain, worse on deep breathing. We thought she had 2 issues going on, including mild fluid overload, explaining her shortness of breath, as well as viral pleurisy, likely caused by coxsackie B infection, causing her pleuritic chest pain. We recommended reinitiation of diuretics. We also recommended some prednisone for the pleurisy. Currently, she is on room air. She's not receiving any IV fluids. The patient could likely be discharged home in the near future. No new labs today to speak of. Progress note dated 08/23/2022. 77-year-old female seen for shortness of breath and sharp chest pain. The patient is currently resting comfortably, in room 459. She remains on room air. Her sharp pleuritic-type chest pain, is improved but not completely gone. We recommended prednisone. She's not receiving any IV fluids. Current labs include a white count of 2.19, hemoglobin 11.5, hematocrit 33.9, and platelet count 333,000. Sodium 125, potassium 4.5, chloride 87, CO2 28, BUN 18.8, and creatinine 0.5. On today's evaluation of 08/24/2022, the patient is doing well. No specific complaints. The patient is currently on prednisone 30 mg by mouth daily treating a nonspecific pleurisy which could be potentially viral in nature. Her pleuritic chest pain is still there although it's improved significantly and the patient is not having any major respiratory distress. No antibiotic coverage for now. The white cell count is at 2.4 with hemoglobin 11.5, sodium is at 129 and a BUN is a 50 with a creatinine of 0.7. The cultures are negative for now. Renal function tests are also within normal limits at the time of admission. The patient is known to have history of hypertension, hyperlipidemia and headaches/vascular headaches. Objective - Vital Signs Vital signs: Vital Signs Temp 97.6 F 08/24/22 06:49 Pulse 44 L 08/24/22 06:49 Resp 16 08/24/22 06:49 BP 157/67 08/24/22 06:49 Pulse Ox 96 08/24/22 09:04 FiO2 Intake & Output 08/23/22 08/24/22 08/24/22 18:59 06:59 18:59 Output Total 2100 Balance -2100 Output: Urine 2100 Other: Voiding Method External Catheter # Voids 1 - Exam No acute distress, oriented 3. No respiratory distress. No audible wheezing. No use of accessory muscles. Room air saturation 96%. HEENT examination is grossly unremarkable. Neck supple. Full range of motion. No adenopathy thyromegaly or neck vein distention. Cardiovascular examination reveals regular rhythm rate. S1-S2 normal. No S3 or S4. No discernible murmur noted. Lungs reveal clear breath sounds. Breath sounds are equal bilaterally. No adventitious lung sounds including wheezes rhonchi or crackles. Abdomen soft bowel sounds are heard. No masses or tenderness. Extremities are intact. No cyanosis clubbing or edema. Skin is without rash or lesion. Neurologic examination is brief but nonfocal. - Labs CBC & Chem 7: 08/23/22 03:56 08/24/22 10:28 Labs: Abnormal Lab Results - Last 24 Hours (Table) 08/24/22 Range/Units 10:28 Sodium 129 L (137-145) mmol/L Chloride 89 L (98-107) mmol/L Glucose 121 H (74-99) mg/dL Assessment and Plan Plan: Dyspnea and sharp chest pain on inhalation, suspect viral pleurisy. CT angiogram of the chest showed no evidence of any pulmonary embolism and the patient is currently on prednisone 30 mg by mouth daily and the patient is improved. History of lower extremity edema on Lasix in the outpatient setting had not been taking it due to decreased edema. The patient is currently on no diuretics and she has no significant edema lower extremity bilaterally. History of depression. Former smoker. Hyperlipidemia. History of hypertension. History of vascular headaches. Plan Repeat chest x-ray Continue the prednisone burst taper Clinically stable Oxygenation is normal and the patient has been on room air oxygen Possible discharge either today or within next 24 hours
[2022-08-25] MEDS: HYDROcodone/APAP 5-325MG 1 EACH TAB PO PRN ×2 (01:41→09:27)
--- NOTE | 2022-08-25 07:58 | XR ---
EXAMINATION TYPE: XR chest 2V DATE OF EXAM: 08/25/2022 COMPARISON: 08/20/2022 TECHNIQUE: PA and lateral views submitted. HISTORY: Shortness of breath FINDINGS: Heart size is at the upper limits of normal there is bilateral consolidation and small left effusion. Underlying COPD. Right middle lobe area of consolidation has resolved. No overt failure. Diffuse ost eopenia hypertrophic degenerative change of the spine. Prominent pulmonary arteries compatible with p ulmonary arterial hypertension. IMPRESSION: 1. COPD with bilateral lower lobe infiltrate and small effusions slightly improved from prior exam. N o overt failure.
[2022-08-25 08:16] VITALS: BP 132/68; PULSE 58; RESP 17; TEMP 97.8
[2022-08-25] MEDS: PRAVASTATIN SODIUM 20 MG TAB PO SCH (09:27)
[2022-08-25] MEDS: CYANOCOBALAMIN 500 MCG TAB PO SCH (09:28)
[2022-08-25] MEDS: CHOLECALCIFEROL 25 MCG (1000 IU) TABLET PO SCH (09:28)
[2022-08-25] MEDS: predniSONE 10 MG TAB PO SCH (09:28)
[2022-08-25] MEDS: ESCITALOPRAM 10 MG TAB PO SCH (09:28)
[2022-08-25] MEDS: hydrALAZINE HCL 50 MG TAB PO SCH (09:28)
--- NOTE | 2022-08-25 12:54 | P.DS ---
Providers Date of admission: 08/20/22 20:54 Expected date of discharge: 08/25/22 Attending physician: Pavithra Steele MD Consults: 08/20/22 20:54 Consult Physician Routine Consulting Provider: Flavio Martins Reason/Comments: Exertional dyspnea Do you want consulting provider notified?: Yes Primary care physician: Juliane Mclean [place] Course: Discharge diagnoses; 1. Exertional dyspnea Viral pleurisy - Patient does have an elevated BNP of 2800; chest x-ray is negative for any acute process or pulmonary vascular congestion - Patient did have cardiac workup completed in May 2022 with echocardiogram which revealed normal EF with mild to moderate mitral regurg and tricuspid regurg; Lasix again stress test was also done at that time which was negative for reversible ischemia - D-dimer is elevated at 3.45; CT chest was completed which was negative for PE - Continue Lasix Being discharged on oral Lasix and tapering dose of prednisone 2. Hypertension; hydralazine 50 mg by mouth 3 times a day 3. Hyperlipidemia; Pravachol 20 mg daily 4. Restless legs syndrome; Requip 0.5 mg daily at bedtime 5. Vitamin D deficiency; continue with home dose of vitamin D3 thousand units daily 6. Vitamin B12 deficiency; patient is currently on vitamin B12 thousand MCG daily 7. Depression; Lexapro 10 mg daily Hospital course; 77-year-old female presenting to the emergency department with concerns for dyspnea. Symptoms have progressed mostly over the past week. Patient has exertional dyspnea. No chest pain. Patient has had decreased appetite recently. Patient has lost around 20 pounds in the past month. Patient has increased fatigue. No cough. No leg pain or leg swelling. Patient did stop taking medications week ago. Patient has not getting out of her chair much. EKG reveals sinus mechanism with no signs of acute ischemia Chest CT: Negative for pulmonary embolism Chest xray chronic changes without acute pulmonary process. No significant change from prior Laboratory data: WBC 2.4. Hemoglobin 11.7. Platelet count 297. D-dimer 3.45. Sodium 131. Potassium 3.8. BUN 15. Creatinine 0.5. Troponin negative 3. ProBNP 2800. Most recent echocardiogram obtained in May 2022 revealed normal ejection fraction, mild to moderate MR, mild to moderate TR Patient underwent Lexiscan stress test in May 2022 was negative 08/23/2022 Patient is seen and evaluated resting in bed; continues to complain of shortness of breath with minimal activity Vital signs are reviewed and stable with temperature of 97.7, pulse 64, respirations 17 and blood pressure 161 with extended O2 saturation of 94% on room air -- Patient has been evaluated by cardiology for exertional dyspnea; recent Lexiscan stress test completed in May 2022 and echocardiogram have been unremarkable; cardiology recommending to continue current medication with no further workup needed; patient has been placed on IV Lasix for pulmonary service; cardiology not convinced of volume overload and deciding use of Lasix to pulmonary; patient does report improvement in symptoms with IV Lasix, we will plan to continue Lasix for another 24 hours with close monitoring of renal function and electrolytes, strict BRIGIDA's; patient also placed on prednisone for bronchospasm given suspicion of viral upper respiratory infection -- Possible discharge in next 24 hours with discontinuation off IV Lasix and quick taper off oral steroids 08/24. Patient seen and examined . States she feels much better, shortness of breath improved. Denies any swelling of feet 08/25. Patient seen and examined. Not requiring any supplemental oxygen. Pulmonology cleared the patient for discharge. Being discharged to rehab in stable condition PHYSICAL EXAMINATION: GENERAL: The patient is alert and oriented x3, not in any acute distress. Well developed, well nourished. HEENT: Pupils are round and equally reacting to light. EOMI. No scleral icterus. No conjunctival pallor. Normocephalic, atraumatic. No pharyngeal erythema. No thyromegaly. CARDIOVASCULAR: S1 and S2 present. No murmurs, rubs, or gallops. PULMONARY: Chest is clear to auscultation, no wheezing or crackles. ABDOMEN: Soft, nontender, nondistended, normoactive bowel sounds. No palpable organomegaly. MUSCULOSKELETAL: No joint swelling or deformity. EXTREMITIES: No cyanosis, clubbing, or pedal edema. NEUROLOGICAL: Gross neurological examination did not reveal any focal deficits. SKIN: No rashes. Patient Condition at Discharge: Good Plan - Discharge Summary Discharge Rx Participant: Yes New Discharge Prescriptions: New predniSONE 10 mg PO DAILY #12 tab Continue Vitamin B Complex 1 cap PO DAILY Furosemide [Lasix] 20 mg PO DAILY PRN PRN Reason: Edema hydrALAZINE HCL [Apresoline] 50 mg PO TID Ubidecarenone [Coenzyme Q10] 100 mg PO DAILY Pravastatin Sodium [Pravachol] 20 mg PO DAILY Escitalopram [Lexapro] 10 mg PO HS Cholecalciferol [Vitamin D3 (25 Mcg = 1000 Iu)] 25 mcg PO DAILY rOPINIRole HCL [Requip] 0.5 mg PO PC-SUPPER Cyanocobalamin (Vitamin B-12) [Vitamin B-12] 1,000 mcg PO DAILY Biotin With Keratin 1 cap PO DAILY Changed HYDROcodone/APAP 5-325MG [[place] 5-325] 1 tab PO Q6HR PRN #12 tab PRN Reason: Pain Discharge Medication List Escitalopram [Lexapro] 10 mg PO HS 03/14/21 [History] Pravastatin Sodium [Pravachol] 20 mg PO DAILY 03/14/21 [History] Biotin With Keratin 1 cap PO DAILY 06/11/22 [History] Cholecalciferol [Vitamin D3 (25 Mcg = 1000 Iu)] 25 mcg PO DAILY 06/11/22 [History] Cyanocobalamin (Vitamin B-12) [Vitamin B-12] 1,000 mcg PO DAILY 06/11/22 [History] Furosemide [Lasix] 20 mg PO DAILY PRN 06/11/22 [History] Vitamin B Complex 1 cap PO DAILY 06/11/22 [History] rOPINIRole HCL [Requip] 0.5 mg PO PC-SUPPER 06/11/22 [History] Ubidecarenone [Coenzyme Q10] 100 mg PO DAILY 08/20/22 [History] hydrALAZINE HCL [Apresoline] 50 mg PO TID 08/20/22 [History] HYDROcodone/APAP 5-325MG [[place] 5-325] 1 tab PO Q6HR PRN #12 tab 08/25/22 [Rx] predniSONE 10 mg PO DAILY #12 tab 08/25/22 [Rx] Follow up Appointment(s)/Referral(s): Juliane Malone MD [Primary Care Provider] - 1-2 days Christo Israel [NON-STAFF] - As Needed Discharge Disposition: TRANSFER TO SNF/ECF
--- NOTE | 2022-08-25 14:05 | P.PN ---
Subjective Progress Note Date: 08/25/22 This is a very pleasant 77-year-old female patient with a known history of hypertension, hyperlipidemia, vascular headaches, depression, former smoker home chronic lower extremity edema. She presented here to the emergency room yesterday with complaints of increasing shortness of breath and dyspnea on e xertion. She is also having some sharp chest pain with inhalation. She had been on Lasix in the outpatient setting but had stopped it as the swelling in her lower extremities had improved. She was using it on an as-needed basis. 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 Chest x-ray revealed some chronic changes but no acute pulmonary process. CT angiogram ruled out pulmonary embolism. There is trace pleural effusions with associated atelectasis. White count 2.4. Hemoglobin 11.7. Platelets 297. Sodium 131. Potassium 3.8. Chloride 94. BUN 15. Creatinine 0.5. Troponins negative 2. She is seen today in consultation on the regular medical floor. She is currently resting comfortably in bed. Awake and alert in no acute distress. Maintaining O2 saturations in the 90s on room air. No lower extremity edema. She does have sharp pain on inhalation. Progress note dated 08/22/2022. This is a 77-year-old female who was seen in room 459. The patient complained of shortness of breath, as well as a sharp chest pain, worse on deep breathing. We thought she had 2 issues going on, including mild fluid overload, explaining her shortness of breath, as well as viral pleurisy, likely caused by coxsackie B infection, causing her pleuritic chest pain. We recommended reinitiation of diuretics. We also recommended some prednisone for the pleurisy. Currently, she is on room air. She's not receiving any IV fluids. The patient could likely be discharged home in the near future. No new labs today to speak of. Progress note dated 08/23/2022. 77-year-old female seen for shortness of breath and sharp chest pain. The patient is currently resting comfortably, in room 459. She remains on room air. Her sharp pleuritic-type chest pain, is improved but not completely gone. We recommended prednisone. She's not receiving any IV fluids. Current labs include a white count of 2.19, hemoglobin 11.5, hematocrit 33.9, and platelet count 333,000. Sodium 125, potassium 4.5, chloride 87, CO2 28, BUN 18.8, and creatinine 0.5. On today's evaluation of 08/24/2022, the patient is doing well. No specific complaints. The patient is currently on prednisone 30 mg by mouth daily treating a nonspecific pleurisy which could be potentially viral in nature. Her pleuritic chest pain is still there although it's improved significantly and the patient is not having any major respiratory distress. No antibiotic coverage for now. The white cell count is at 2.4 with hemoglobin 11.5, sodium is at 129 and a BUN is a 50 with a creatinine of 0.7. The cultures are negative for now. Renal function tests are also within normal limits at the time of admission. The patient is known to have history of hypertension, hyperlipidemia and headaches/vascular headaches. On today's evaluation of 08/25/2022, the patient is having some limited amount of pleurisy in the left lung. Otherwise, she is doing well. No specific complaints. A repeat chest x-ray was done and showed COPD along with some limited lower lobe infiltrates and small effusions slightly improved compared to earlier examination. No new labs are available from today. Labs from yesterday was noted. The patient remains on steroids. She is on room air oxygen. Objective - Vital Signs Vital signs: Vital Signs Temp 97.8 F 08/25/22 07:22 Pulse 58 L 08/25/22 07:22 Resp 17 08/25/22 07:22 BP 132/68 08/25/22 07:22 Pulse Ox 96 08/25/22 07:22 FiO2 Intake & Output 08/24/22 08/25/22 08/25/22 18:59 06:59 18:59 Intake Total 1080 400 Output Total 600 Balance 480 400 Intake: Oral 1080 400 Output: Urine 600 Other: Voiding Method External Catheter # Voids 4 3 - Exam No acute distress, oriented 3. No respiratory distress. No audible wheezing. No use of accessory muscles. Room air saturation 96%. HEENT examination is grossly unremarkable. Neck supple. Full range of motion. No adenopathy thyromegaly or neck vein distention. Cardiovascular examination reveals regular rhythm rate. S1-S2 normal. No S3 or S4. No discernible murmur noted. Lungs reveal clear breath sounds. Breath sounds are equal bilaterally. No adventitious lung sounds including wheezes rhonchi or crackles. Abdomen soft bowel sounds are heard. No masses or tenderness. Extremities are intact. No cyanosis clubbing or edema. Skin is without rash or lesion. Neurologic examination is brief but nonfocal. - Labs CBC & Chem 7: 08/23/22 03:56 08/24/22 10:28 Labs: Abnormal Lab Results - Last 24 Hours (Table) 08/24/22 Range/Units 10:28 Sodium 129 L (137-145) mmol/L Chloride 89 L (98-107) mmol/L Glucose 121 H (74-99) mg/dL Assessment and Plan Plan: Dyspnea and sharp chest pain on inhalation, suspect viral pleurisy. CT angiogram of the chest showed no evidence of any pulmonary embolism and the patient is currently on prednisone 30 mg by mouth daily and the patient is improved. History of lower extremity edema on Lasix in the outpatient setting had not been taking it due to decreased edema. The patient is currently on no diuretics and she has no significant edema lower extremity bilaterally. History of depression. Former smoker. Hyperlipidemia. History of hypertension. History of vascular headaches. Plan Repeat chest x-ray from today shows stable findings with some slight improvement Continue the prednisone burst taper Pleurisy is improving Clinically stable, the patient is currently on room and oxygen Oxygenation is normal and the patient has been on room air oxygen Possible discharge today
== END 2022-08-25 14:51 | DRG 866 ==
LOC: EC 14:37 → 4SSUR 20:54
PROVIDERS: ADMIT Internal Medicine; ATTEND Internal Medicine
DX: B34.1 Enterovirus infection, unspecified (principal); I10 Essential (primary) hypertension; J44.9 Chronic obstructive pulmonary disease, unspecified; I08.1 Rheumatic disorders of both mitral and tricuspid valves; G25.81 Restless legs syndrome; F32.A Depression, unspecified; E87.70 Fluid overload, unspecified; E78.5 Hyperlipidemia, unspecified; E55.9 Vitamin D deficiency, unspecified; E53.8 Deficiency of other specified B group vitamins; Z79.899 Other long term (current) drug therapy; Z90.710 Acquired absence of both cervix and uterus; Z91.013 Allergy to seafood
CPT/HCPCS: 36415; 71046; 71275; 80048; 80053; 81001; 82550; 83605; 83735; 83880; 84484; 85025; 85379; 85610; 85730; 93005; 94760; 96374; 99285

== ENCOUNTER 2022-09-02 11:48 | Inpatient (IN) | payer MEDICARE, MEDICAID ==
[2022-09-02] MEDS ORDERED: SODIUM CHLORIDE 0.9% 500 ML 500 ML IV STA (12:38)
--- NOTE | 2022-09-02 13:32 | ED ---
General Adult HPI - General Chief complaint: Syncope Stated complaint: Syncope Time Seen by Provider: 09/02/22 12:28 Source: patient, EMS, RN notes reviewed, old records reviewed Mode of arrival: EMS - History of Present Illness Initial comments: 77-year-old female presents for evaluation of near syncope, lightheadedness and head injury. Patient had been cutting some food at the counter, she fell landing onto her tailbone and then since probably fell backwards striking her h ead. She was somewhat dazed but did not lose consciousness. She had not eaten a significant breakfast and had taken all of her medications prior to this event. No preceding symptoms no vomiting. No diaphoresis. No chest pain or palpitations. She does complain of this headache and neck pain. She was placed in a c-collar by paramedics during transport. No focal numbness or weakness. No chest pain or abdominal pain. - Related Data Home Medications Medication Instructions Recorded Confirmed Escitalopram [Lexapro] 10 mg PO HS 03/14/21 08/20/22 Pravastatin Sodium [Pravachol] 20 mg PO DAILY 03/14/21 08/20/22 Biotin With Keratin 1 cap PO DAILY 06/11/22 08/20/22 Cholecalciferol [Vitamin D3 (25 25 mcg PO DAILY 06/11/22 08/20/22 Mcg = 1000 Iu)] Cyanocobalamin (Vitamin B-12) 1,000 mcg PO DAILY 06/11/22 08/20/22 [Vitamin B-12] Vitamin B Complex 1 cap PO DAILY 06/11/22 08/20/22 rOPINIRole HCL [Requip] 0.5 mg PO PC-SUPPER 06/11/22 08/20/22 Ubidecarenone [Coenzyme Q10] 100 mg PO DAILY 08/20/22 08/20/22 hydrALAZINE HCL [Apresoline] 50 mg PO TID 08/20/22 08/20/22 Previous Rx's Medication Instructions Recorded Furosemide [Lasix] 20 mg PO DAILY #30 tab 08/25/22 HYDROcodone/APAP 5-325MG [[place] 1 tab PO Q6HR PRN #12 tab 08/25/22 5-325] predniSONE 10 mg PO DAILY #12 tab 08/25/22 Allergies Allergy/AdvReac Type Severity Reaction Status Date / Time shellfish derived [Shrimp] Allergy Dyspnea Verified 08/20/22 18:03 Review of Systems ROS Statement: Those systems with pertinent positive or pertinent negative responses have been documented in the HPI. ROS Other: All systems not noted in ROS Statement are negative. Past Medical History Past Medical History: Hyperlipidemia, Hypertension, Osteoarthritis (OA) Additional Past Medical History / Comment(s): VASCULAR HEADACHES , VARICOSE VEINS. History of Any Multi-Drug Resistant Organisms: None Reported Past Surgical History: Adenoidectomy, Bladder Surgery, Bowel Resection, Hysterectomy, Joint Replacement, Tonsillectomy, Tubal Ligation Additional Past Surgical History / Comment(s): BSO, [place] NEUROMA LEFT FOOT, CYSTOCELE AND RECTOCELE REPAIR, angie hip Past Anesthesia/Blood Transfusion Reactions: No Reported Reaction Additional Past Anesthesia/Blood Transfusion Reaction / Comment(s): BLOOD TRANSFUSION WITH NO PROBLEM Past Psychological History: Depression Smoking Status: Never smoker Past Alcohol Use History: Rare Past Drug Use History: None Reported - Past Family History Mother Family Medical History: No Reported History General Exam General appearance: alert, in no apparent distress Head exam: Present: other (Occipital hematoma and laceration) Eye exam: Present: normal appearance, PERRL ENT exam: Present: mucous membranes dry Neck exam: Present: normal inspection, other (C-collar placed by paramedics). Absent: tenderness Respiratory exam: Absent: normal lung sounds bilaterally, respiratory distress, wheezes Cardiovascular Exam: Present: regular rate, normal rhythm GI/Abdominal exam: Present: soft. Absent: distended, tenderness Extremities exam: Present: normal inspection, normal capillary refill. Absent: pedal edema, calf tenderness Neurological exam: Present: alert, oriented X3, CN II-XII intact. Absent: motor sensory deficit Psychiatric exam: Present: normal affect, normal mood Skin exam: Present: warm, dry, intact. Absent: cyanosis, diaphoretic Course Vital Signs 09/02/22 11:50 Temperature 98.7 F Pulse Rate 60 Respiratory 18 Rate Blood Pressure 132/52 O2 Sat by Pulse 98 Oximetry Procedures - Laceration Laceration #1 Consent Obtained: verbal consent Size (cm): 3 Description: linear Depth: simple, single layer Pre-repair: deep structures intact Size of Sutures: other (Susan) Number of Sutures: 5 Technique: simple, interrupted Patient Tolerated Procedure: well Medical Decision Making - Medical Decision Making Was pt. sent in by a medical professional or institution (Dr., PA, ROOM SERVICE ASSOCIATE, urgent care, hospital, or detention...) When possible be specific @ -[No] Did you speak to anyone other than the patient for history (EMS, parent, family, police, friend...)? What history was obtained from this source @ -[Yes, patient's daughter and Did you review nursing and triage notes (agree or disagree)? Why? @ -[I reviewed and agree with nursing and triage notes] Were old charts reviewed (outside hosp., previous admission, EMS record, old EKG, old radiological studies, urgent care reports/EKG's, detention records)? Report findings @ -[No old charts were reviewed] Differential Diagnosis (chest pain, altered mental status, abdominal pain women, abdominal pain men, vaginal bleeding, weakness, fever, dyspnea, syncope, headache, dizziness, GI bleed, back pain, seizure, CVA, palpatations, mental health, musculoskeletal)? @ -Differential Syncope: Valvular disease, hypertrophic cardiomyopathy, pulmonary embolism, tamponade, t achycardia, bradycardia, [place], hypovolemia, hemorrhage, dissection, anemia, intracranial hemorrhage, seizure, hypoglycemia, carbon monoxide poisoning, this is not meant to be an all-inclusive list. EKG interpreted by me (3pts min.). @ EKG: Sinus bradycardia rate of 59, ME interval 150, QRS duration 86, QTC 416, no ST segment elevation. X-rays interpreted by me (1pt min.). @ -[None done] CT interpreted by me (1pt min.). @CT brain negative for intracranial hemorrhage or mass effect U/S interpreted by me (1pt. min.). @ -[None done] What testing was considered but not performed or refused? (CT, X-rays, U/S, labs)? Why? @ -[None] What meds were considered but not given or refused? Why? @ -[None] Did you discuss the management of the patient with other professionals (professionals i.e. SHASHA Chaney, ROOM SERVICE ASSOCIATE, lab, RT, psych nurse, manager social, systems technologist, teacher, radio division officer, sample case porter)? Give summary @ -EMH Was smoking cessation discussed for >3mins.? @ -[No] Was critical care preformed (if so, how long)? @ -[No] Were there social determinants of health that impacted care today? How? (Homelessness, low income, unemployed, alcoholism, drug addiction, transportation, low edu. Level, literacy, decrease access to med. care, prison, rehab)? @ -[No] Was there de-escalation of care discussed even if they declined (Discuss DNR or withdrawal of care, Hospice)? DNR status @ -[No] What co-morbidities impacted this encounter? (DM, HTN, Smoking, COPD, CAD, Cancer, CVA, ARF, Chemo, Hep., AIDS, mental health diagnosis, sleep apnea, morbid obesity)? @ -Hypertension, peripheral edema Was patient admitted / discharged? Hospital course, mention meds given and route, prescriptions, significant lab abnormalities, going to OR and other pertinent info. @ -Patient with syncope, will be observed overnight on telemetry, given IV fluids, diuretics held at this time. Undiagnosed new problem with uncertain prognosis? @ -[No] Drug Therapy requiring intensive monitoring for toxicity (Heparin, Nitro, Insulin, Cardizem)? @ -[No] Were any procedures done? @ -[Yes, laceration repair Diagnosis/symptom? @ -Syncope, hyponatremia, dehydration Acute, or Chronic, or Acute on Chronic? @ -[acute Uncomplicated (without systemic symptoms) or Complicated (systemic symptoms)? @ -[default] Side effects of treatment? @ -[No] Exacerbation, Progression, or Severe Exacerbation? @ -[No] Poses a threat to life or bodily function? How? (Chest pain, [place], [place], pneumonia, PE, COPD, DKA, ARF, appy, cholecystitis, CVA, Diverticulitis, Homicidal, Suicidal, threat to staff... and all critical care pts) @ -[yes, symcope - Lab Data Result diagrams: 09/02/22 12:58 09/02/22 12:58 Lab Results 09/02/22 09/02/22 09/02/22 Range/Units 12:58 12:58 12:58 WBC 14.2 H (3.8-10.6) k/uL RBC 3.90 (3.80-5.40) m/uL Hgb 12.3 (11.4-16.0) gm/dL Hct 36.1 (34.0-46.0) % MCV 92.6 (80.0-100.0) fL MCH 31.6 (25.0-35.0) pg MCHC 34.2 (31.0-37.0) g/dL RDW 14.1 (11.5-15.5) % Plt Count 233 (150-450) k/uL MPV 6.8 Neutrophils % 93 % Lymphocytes % 3 % Monocytes % 3 % Eosinophils % 1 % Basophils % 1 % Neutrophils # 13.1 H (1.3-7.7) k/uL Lymphocytes # 0.4 L (1.0-4.8) k/uL Monocytes # 0.4 (0-1.0) k/uL Eosinophils # 0.1 (0-0.7) k/uL Basophils # 0.1 (0-0.2) k/uL PT 10.8 (9.0-12.0) sec INR 1.0 (<1.2) APTT 28.9 (22.0-30.0) sec Sodium 126 L (137-145) mmol/L Potassium 4.5 (3.5-5.1) mmol/L Chloride 89 L (98-107) mmol/L Carbon Dioxide 29 (22-30) mmol/L Anion Gap 8 mmol/L BUN 14 (7-17) mg/dL Creatinine 0.46 L (0.52-1.04) mg/dL Est GFR (CKD-EPI)AfAm >90 (>60 ml/min/1.73 sqM) Est GFR (CKD-EPI)NonAf >90 (>60 ml/min/1.73 sqM) Glucose 92 (74-99) mg/dL Calcium 8.1 L (8.4-10.2) mg/dL Magnesium 1.9 (1.6-2.3) mg/dL Total Bilirubin 1.4 H (0.2-1.3) mg/dL AST 61 H (14-36) U/L ALT 30 (4-34) U/L Alkaline Phosphatase 51 (38-126) U/L Troponin I (0.000-0.034) ng/mL Total Protein 7.5 (6.3-8.2) g/dL Albumin 3.6 (3.5-5.0) g/dL 09/02/22 Range/Units 12:58 WBC (3.8-10.6) k/uL RBC (3.80-5.40) m/uL Hgb (11.4-16.0) gm/dL Hct (34.0-46.0) % MCV (80.0-100.0) fL MCH (25.0-35.0) pg MCHC (31.0-37.0) g/dL RDW (11.5-15.5) % Plt Count (150-450) k/uL MPV Neutrophils % % Lymphocytes % % Monocytes % % Eosinophils % % Basophils % % Neutrophils # (1.3-7.7) k/uL Lymphocytes # (1.0-4.8) k/uL Monocytes # (0-1.0) k/uL Eosinophils # (0-0.7) k/uL Basophils # (0-0.2) k/uL PT (9.0-12.0) sec INR (<1.2) APTT (22.0-30.0) sec Sodium (137-145) mmol/L Potassium (3.5-5.1) mmol/L Chloride (98-107) mmol/L Carbon Dioxide (22-30) mmol/L Anion Gap mmol/L BUN (7-17) mg/dL Creatinine (0.52-1.04) mg/dL Est GFR (CKD-EPI)AfAm (>60 ml/min/1.73 sqM) Est GFR (CKD-EPI)NonAf (>60 ml/min/1.73 sqM) Glucose (74-99) mg/dL Calcium (8.4-10.2) mg/dL Magnesium (1.6-2.3) mg/dL Total Bilirubin (0.2-1.3) mg/dL AST (14-36) U/L ALT (4-34) U/L Alkaline Phosphatase (38-126) U/L Troponin I <0.012 (0.000-0.034) ng/mL Total Protein (6.3-8.2) g/dL Albumin (3.5-5.0) g/dL Disposition Clinical Impression: Syncope, Hyponatremia, Dehydration Disposition: ADMITTED IP TO THIS HOSP Condition: Stable Is patient prescribed a controlled substance at d/c from ED?: No Referrals: Juliane Malone MD [Primary Care Provider] - 1-2 days Time of Disposition: 15:17
--- NOTE | 2022-09-02 14:12 | CT ---
EXAMINATION TYPE: CT brain cspine wo con DATE OF EXAM: 09/02/2022 COMPARISON: 03/14/2019 HISTORY: syncope CT DLP: 1335 mGycm Automated exposure control for dose reduction was used. TECHNIQUE: CT scan of the head and cervical spine are performed without contrast. FINDINGS: There is no acute intracranial hemorrhage, mass effect, or midline shift identified. Mode rate generalized degenerative change. Hypoattenuation within the white matter is nonspecific but most typical of white matter ischemia. The globes are intact and the visualized sinuses are clear. Cervical spine is visualized in its entirety from C1 through upper thoracic levels. Assessment of the spinal canal limited due to resolution and artifact. Satisfactory alignment without evidence of acut e fracture or dislocation. Prevertebral soft tissue appears within normal limits. The C1-C2 articul ation is demonstrate severe degenerative change with a small pannus posteriorly. There is multilevel degenerative disc disease with severe changes at C5-6 and C6-C7. There is a anter olisthesis of C4 relative to C5 measuring 4 mm. There is multilevel severe facet arthropathy and mult ilevel foraminal impingement. Suspect multilevel canal stenosis centered at C5-6 and C6-C7.. IMPRESSION: 1. There is no acute fracture or dislocation evident in the cervical spine. Severe multilevel degener ative disc disease and facet arthropathy with multilevel foraminal protrusion and canal stenosis. The re is a grade 1 anterior listhesis of C4 and C5 which appears degenerative. Recommend follow-up MRI. 2. No acute intracranial hemorrhage, mass effect, or midline shift is seen.
[2022-09-02 14:27] LABS: Basophils # (A) 0.1 k/uL (0-0.2); Basophils % (A) 1 %; Eosinophils # (A) 0.1 k/uL (0-0.7); Eosinophils % (A) 1 %; HCT 36.1 % (34.0-46.0); HGB 12.3 gm/dL (11.4-16.0); Lymphocytes # (A) 0.4 k/uL (1.0-4.8); Lymphocytes % (A) 3 %; MCH 31.6 pg (25.0-35.0); MCHC 34.2 g/dL (31.0-37.0); MCV 92.6 fL (80.0-100.0); Mean Platelet Volume 6.8; Monocytes # (A) 0.4 k/uL (0-1.0); Monocytes % (A) 3 %; Neutrophils # (A) 13.1 k/uL (1.3-7.7); Neutrophils % (A) 93 %; Platelet Count 233 k/uL (150-450); RDW 14.1 % (11.5-15.5); WBC 14.2 k/uL (3.8-10.6)
[2022-09-02 14:30] LABS: ALT 30 U/L (4-34); AST 61 U/L (14-36); African American GFR (CKD) >90 (>60 ml/min/1.73 sqM); Albumin 3.6 g/dL (3.5-5.0); Alkaline Phosphatase 51 U/L (38-126); Anion Gap 8 mmol/L; Blood Urea Nitrogen 14 mg/dL (7-17); Calcium 8.1 mg/dL (8.4-10.2); Carbon Dioxide 29 mmol/L (22-30); Chloride 89 mmol/L (98-107); Glucose 92 mg/dL (74-99); Magnesium 1.9 mg/dL (1.6-2.3); Non-African American GFR(CKD) >90 (>60 ml/min/1.73 sqM); Sodium 126 mmol/L (137-145); Total Bilirubin 1.4 mg/dL (0.2-1.3); Total Protein 7.5 g/dL (6.3-8.2)
[2022-09-02 14:38] LABS: Potassium 4.5 mmol/L (3.5-5.1)
[2022-09-02 14:51] LABS: Partial Thromboplastin Time 28.9 sec (22.0-30.0); Prothrombin Time 10.8 sec (9.0-12.0)
--- NOTE | 2022-09-02 14:56 | XR ---
EXAMINATION TYPE: XR chest 1V portable DATE OF EXAM: 09/02/2022 COMPARISON: 08/25/2022, 10/01/2021 HISTORY: Pain TECHNIQUE: Single frontal view of the chest is obtained. FINDINGS: There is no focal air space opacity, pleural effusion, or pneumothorax seen. The cardiac silhouette size is within normal limits. The osseous structures are intact. The heart is mildly pro minent as atherosclerotic change of the aorta. There is diffuse osteopenia. Emphysematous changes are noted. There is a deformity of the distal left clavicle stable from 2021 and therefore chronic. IMPRESSION: 1. No acute intrathoracic process.
--- NOTE | 2022-09-02 14:58 | XR ---
EXAMINATION TYPE: XR pelvis AP view DATE OF EXAM: 09/02/2022 COMPARISON: NONE HISTORY: Pain The osseous structures are intact and the joint spaces are preserved. No acute fracture is seen. Vi sualized bowel gas calcifications in the pelvis are likely related to vascular phleboliths. Diffuse o steopenia. Pattern is nonspecific. Postoperative change involving the bilateral hip. IMPRESSION: 1. No acute fracture.
[2022-09-02] MEDS ORDERED: NALOXONE 0.4 MG/ML 1 ML VIAL IV PRN (15:14)
[2022-09-02] MEDS: SODIUM CHLORIDE 0.9% 1,000 ML IV SCH (16:10)
[2022-09-02] MEDS: HEPARIN SODIUM,PORCINE/PF 5,000 UNIT/0.5 ML SYRINGE SQ SCH (23:58)
--- NOTE | 2022-09-03 00:05 | P.HPIM ---
History of Present Illness H&P Date: 09/02/22 Chief Complaint: Syncope Patient is a 77-year-old female With a past medical history of hypertension, hyperlipidemia and osteoarthritis and history of bowel resection and depression presents to ER status post syncopal episode. Patient was recently discharged from the hospital on 08/25/2022 to rehab after acute viral infection. She was discharged from the rehab yesterday. She was at home this morning and woke up and went to the bathroom to urinate and walk to the kitchen. She was cutting the [employer] half and call her to get his part. Suddenly she fell on the ground and injured on the back of the head. Last concern about less than a minute. No bladder or bowel incontinence. Patient and was able to communicate after the fall. Denies any headache. De nies any dizziness or palpitations prior to the episode. Patient is currently walking with a wheeled walker. Patient had hip surgery in June 2022. Had a cardiac work-up including Lexiscan stress test and echocardiogram in May 2022. EKG showed sinus bradycardia. Heart rate 59. CT head and cervical spine showed there is no acute fracture or dislocation evident in the cervical spine. Severe multilevel degenerative disc disease and patient's arthropathy with multilevel foraminal protrusion and canal stenosis. There is a grade 1 anterior listhesis of C4 and C5 which appears degenerative. Recommend follow-up MRI. No acute intracranial hemorrhage. Mass effect or left shift noted. Chest x-ray showed no acute intrathoracic process. X-ray of the pelvis showed no acute fracture. Laboratory showed WBC 14.2 hemoglobin 12.3 and platelets 233 Blood pressure 132/52 on admission. Sodium 126 potassium 4.5 chloride 89 bicarb is 29 BUN 14 and creatinine 0.46 and calcium 8.1. Total bilirubin is 1.4 AST 61 ALT 13 alk phos 51. Troponin x1 negative. rotid duplex will be ordered. 2D echocardiogram in May 2022 showed normal EF. Review of Systems Constitutional: Patient denies any fever or chills . Generalized weakness. Abdomen: Patient denied any nausea or vomiting or abd. pain Cardiovascular: Patient denies any chest pain or short of breath no palpitations. Respiratory: patient denied any cough . no sputum production. No shortness of breath Neurologic: Patient denied any numbness or tingling headache. Musculoskeletal: Patient denies any complaints of joint swelling or deformity. Skin: Negative Psychiatric: Negative Endocrine: No heat or cold intolerance. No recent weight gain. Genitourinary: No dysuria or hematuria. All other 14 point ROS negative except the above Past Medical History Past Medical History: Hyperlipidemia, Hypertension, Osteoarthritis (OA) Additional Past Medical History / Comment(s): VASCULAR HEADACHES , VARICOSE VEINS. History of Any Multi-Drug Resistant Organisms: None Reported Past Surgical History: Adenoidectomy, Bladder Surgery, Bowel Resection, Hysterectomy, Joint Replacement, Tonsillectomy, Tubal Ligation Additional Past Surgical History / Comment(s): BSO, [facility] NEUROMA LEFT FOOT, CYSTOCELE AND RECTOCELE REPAIR, angie hip Past Anesthesia/Blood Transfusion Reactions: No Reported Reaction Additional Past Anesthesia/Blood Transfusion Reaction / Comment(s): BLOOD TRANSFUSION WITH NO PROBLEM Past Psychological History: Depression Smoking Status: Never smoker Past Alcohol Use History: Rare Past Drug Use History: None Reported - Past Family History Mother Family Medical History: No Reported History Medications and Allergies Home Medications Medication Instructions Recorded Confirmed Type Escitalopram [Lexapro] 10 mg PO HS 03/14/21 09/02/22 History Pravastatin Sodium [Pravachol] 20 mg PO DAILY 03/14/21 09/02/22 History Biotin With Keratin 1 cap PO DAILY 06/11/22 09/02/22 History Cholecalciferol [Vitamin D3 (25 25 mcg PO DAILY 06/11/22 09/02/22 History Mcg = 1000 Iu)] Cyanocobalamin (Vitamin B-12) 1,000 mcg PO DAILY 06/11/22 09/02/22 History [Vitamin B-12] Vitamin B Complex 1 cap PO DAILY 06/11/22 09/02/22 History rOPINIRole HCL [Requip] 0.5 mg PO PC-SUPPER 06/11/22 09/02/22 History Ubidecarenone [Coenzyme Q10] 100 mg PO DAILY 08/20/22 09/02/22 History hydrALAZINE HCL [Apresoline] 50 mg PO TID 08/20/22 09/02/22 History Furosemide [Lasix] 20 mg PO DAILY #30 tab 08/25/22 09/02/22 Rx HYDROcodone/APAP 5-325MG [[place] 1 tab PO Q6HR PRN #12 tab 08/25/22 09/02/22 Rx 5-325] Losartan Potassium [Cozaar] 100 mg PO DAILY 09/02/22 09/02/22 History Allergies Allergy/AdvReac Type Severity Reaction Status Date / Time shellfish derived [Shrimp] Allergy Dyspnea Verified 09/02/22 16:15 Physical Exam Vitals: Vital Signs Temp Pulse Resp BP Pulse Ox 09/02/22 16:17 74 16 136/64 96 09/02/22 16:00 69 22 131/63 09/02/22 12:00 132/52 98 09/02/22 11:52 96 09/02/22 11:50 98.7 F 60 18 132/52 98 Intake and Output 09/02/22 09/02/22 09/02/22 06:59 14:59 22:59 Other: Weight 53.07 kg PHYSICAL EXAMINATION: Patient is lying in the bed comfortably, no acute distress, awake alert and oriented.. HEENT: Normocephalic. Neck is supple. Pupils reactive. Nostrils clear. Oral cavity is moist. Neck reveals no JVD, carotid bruits, or thyromegaly. CHEST EXAMINATION: Trachea is central. Symmetrical expansion. Lung miles clear to auscultation and percussion. CARDIAC: Normal S1, S2 with no gallops. No murmurs ABDOMEN: Soft. Bowel sounds present. Nontender. No organomegaly. No abdominal bruits. Extremities: reveal no edema. No clubbing or cyanosis Neurologically awake, alert, oriented x3 with well-coordinated movements. No focal deficits noted Skin: No rash or skin lesions. Psychiatric: Coperative. Nonsuicidal, Musculoskeletal: No joint swelling or deformity. Normal range of motion. Results CBC & Chem 7: 09/02/22 12:58 09/02/22 12:58 Labs: Abnormal Lab Results - Last 24 Hours (Table) 09/02/22 09/02/22 Range/Units 12:58 12:58 WBC 14.2 H (3.8-10.6) k/uL Neutrophils # 13.1 H (1.3-7.7) k/uL Lymphocytes # 0.4 L (1.0-4.8) k/uL Sodium 126 L (137-145) mmol/L Chloride 89 L (98-107) mmol/L Creatinine 0.46 L (0.52-1.04) mg/dL Calcium 8.1 L (8.4-10.2) mg/dL Total Bilirubin 1.4 H (0.2-1.3) mg/dL AST 61 H (14-36) U/L Thrombosis Risk Factor Assmnt - DVT/VTE Prophylaxis DVT/VTE Prophylaxis: Pharmacologic Prophylaxis ordered Assessment and Plan Assessment: Acute syncopal episode. Possible orthostatic hypotension. Rule out arrhythmia. EKG showed sinus bradycardia with heart rate in 60s. Hypovolemic hyponatremia Dehydration volume depletion Leukocytosis with WBC 14.2. Rule out infection. Chest x-ray negative. Follow- up UA. Recent history of pleuritic chest pain and shortness of breath thought to be due to acute viral infection. CTA was negative for PE. Mild to moderate MR and TR as per echocardiogram May 2022. Hypertension Hyperlipidemia Osteoarthritis History of bowel resection Depression Mild to moderate MR and TR History of vitamin D deficiency and B12 deficiency DVT prophylaxis with heparin subcu Plan: Patient will be continued on IV hydration. Orthostatic vitals was ordered. Follow-up urinalysis and follow-up electrolytes. Continue with telemetry monitoring. Lasix is on hold. Follow-up closely. Ca Time with Patient: Greater than 30
[2022-09-03] MEDS: SODIUM CHLORIDE 0.9% 1,000 ML IV SCH ×2 (05:16→18:21)
--- NOTE | 2022-09-03 08:57 | US ---
EXAMINATION TYPE: US carotid duplex BILAT DATE OF EXAM: 09/03/2022 COMPARISON: NONE CLINICAL INDICATION: Female, 77 years old with history of Syncope; Patient states she passed out at h ome. HTN controlled with meds. TECHNIQUE: Carotid duplex ultrasound examination. Indirect Doppler criteria was utilized. FINDINGS: EXAM MEASUREMENTS: RIGHT: Peak Systolic Velocity (PSV) cm/sec ----- Right CCA: 110.0 ----- Right ICA: 129.0 ----- Right ECA: 158.0 ICA/CCA ratio: 1.2 RIGHT: End Diastole cm/sec ----- Right CCA: 11.0 ----- Right ICA: 14.2 ----- Right ECA: 0.0 LEFT: Peak Systolic Velocity (PSV) cm/sec ----- Left CCA: 82.8 ----- Left ICA: 184.0 ----- Left ECA: 91.8 ICA/CCA ratio: 2.2 LEFT: End Diastole cm/sec ----- Left CCA: 12.5 ----- Left ICA: 28.7 ----- Left ECA: 0.0 VERTEBRALS (direction of flow): Right Vertebral: Antegrade Left Vertebral: Antegrade Rhythm: Normal VISITOR SERVICES ASSISTANT NOTES: Plaque in right bulb. Wall thickening seen. Elevated right ECA velocity. IMPRESSION: No evidence for hemodynamically significant stenosis. Criteria for Assigning % of Stenosis / Diameter reduction (Estimation based on the indirect measurements of the internal carotid artery velocities (ICA PSV). 1. Normal (no stenosis)=ICA PSV < 125 cm/s: ratio < 2.0: ICA EDV<40 cm/s. 2. Less than 50% stenosis=ICA PSV < 125 cm/s: ratio < 2.0: ICA EDV<40 cm/s. 3. 50 to 69% stenosis=ICA PSV of 125 to 230 cm/s: ration 2.0 ? 4.0: ICA EDV 40-100 cm/s. 4. Greater than 70% stenosis to near occlusion= ICA PSV > 230 cm/s: ratio > 4.0: ICA EDV > 100 cm/s. 5. Near occlusion= ICA PSV velocities may be low or undetectable: variable ratio and ICA EDV. 6. Total occlusion=unable to detect flow.
[2022-09-03] MEDS: CHOLECALCIFEROL 25 MCG (1000 IU) TABLET PO SCH (09:02)
[2022-09-03] MEDS: HEPARIN SODIUM,PORCINE/PF 5,000 UNIT/0.5 ML SYRINGE SQ SCH ×3 (09:02→23:44)
[2022-09-03] MEDS: PRAVASTATIN SODIUM 20 MG TAB PO SCH (09:02)
[2022-09-03] MEDS: CYANOCOBALAMIN 500 MCG TAB PO SCH (09:02)
[2022-09-03 09:03] LABS: Blood Urea Nitrogen 9.2 mg/dL (9.0-27.0); Calcium 7.8 mg/dL (8.7-10.3); Carbon Dioxide 27.1 mmol/L (21.6-31.8); Chloride 94 mmol/L (96-109); Glucose 82 mg/dL (70-110); Potassium 3.4 mmol/L (3.5-5.5); Sodium 130 mmol/L (135-145)
[2022-09-03 09:06] LABS: Basophils # (A) 0.02 X 10*3/uL (0.00-0.10); Basophils % (A) 0.4 %; Eosinophils # (A) 0.26 X 10*3/uL (0.04-0.35); Eosinophils % (A) 4.6 %; HCT 29.8 % (37.2-46.3); HGB 9.9 d/dL (12.0-15.0); Lymphocytes % (A) 17.8 %; MCH 31.1 pg (27.0-32.0); MCHC 33.2 d/dL (32.0-37.0); MCV 93.7 FL (80.0-97.0); Mean Platelet Volume 9.3 FL (9.5-12.2); Monocytes # (A) 0.37 X 10*3/uL (0.20-1.00); Monocytes % (A) 6.6 %; NRBC Per 100 WBC 0 X 10*3/uL (0.00-0.01); Neutrophils # (A) 3.93 X 10*3/uL (1.80-7.70); Neutrophils % (A) 69.7 %; Platelet Count 179 X 10*3/uL (140-440); RBC 3.18 X 10*6/uL (4.10-5.20); WBC 5.63 X 10*3/uL (4.50-10.00)
[2022-09-03] MEDS ORDERED: Potassium Replacement Protocol 1 EACH MISC MISCELLANE PRN (12:45)
[2022-09-03] MEDS: POTASSIUM CHLORIDE ER 20 MEQ TAB.ER PO SCH ×2 (14:03→14:04)
[2022-09-03 14:07] LABS: HCT 30.2 % (34.0-46.0); MCH 30.8 pg (25.0-35.0); MCHC 32.5 g/dL (31.0-37.0); MCV 94.9 fL (80.0-100.0); Platelet Count 169 k/uL (150-450); RBC 3.19 m/uL (3.80-5.40); RDW 14.1 % (11.5-15.5); WBC 5.6 k/uL (3.8-10.6)
[2022-09-03 14:09] LABS: HGB 9.8 gm/dL (11.4-16.0)
[2022-09-03 16:46] LABS: Appearance,Urine Cloudy (Clear); Bacteria,Urine Occasional /hpf; Bilirubin,Urine Negative (Negative); Blood,Urine Negative (Negative); Color,Urine Light Yellow; Glucose,Urine (UA) Negative (Negative); Ketones,Urine Negative (Negative); Leukocyte Esterase,Urine Large (Negative); Mucus,Urine Rare /hpf; Nitrite,Urine Positive (Negative); PH, Urine 6.5 (5.0-8.0); Protein,Urine Negative (Negative); RBC,Urine 8 /hpf (0-5); Specific Gravity,Urine 1.004 (1.001-1.035); Squamous Epithelial Cell,Urine <1 /hpf (0-4); Urobilinogen,Urine <2.0 mg/dL (<2.0); WBC,Urine 44 /hpf (0-5)
[2022-09-03] MEDS: ESCITALOPRAM 10 MG TAB PO SCH (20:41)
[2022-09-03] MEDS: ACETAMINOPHEN TAB 325 MG TAB PO PRN (20:41)
--- NOTE | 2022-09-04 03:14 | P.PN ---
Subjective Progress Note Date: 09/03/22 Patient is a 77-year-old female With a past medical history of hypertension, hyperlipidemia and osteoarthritis and history of bowel resection and depression presents to ER status post syncopal episode. Patient was recently discharged from the hospital on 08/25/2022 to rehab after acute viral infection. She was discharged from the rehab yesterday. She was at home this morning and woke up and went to the bathroom to urinate and walk to the kitchen. She was cutting the [employer] half and call her to get his part. Suddenly she fell on the ground and injured on the back of the head. Last concern about less than a minute. No bladder or bowel incontinence. Patient and was able to communicate after the fall. Denies any headache. Denies any dizziness or palpitations prior to the episode. Patient is currently walking with a wheeled walker. Patient had hip surgery in June 2022. Had a cardiac work-up including Lexiscan stress test and echocardiogram in May 2022. EKG showed sinus bradycardia. Heart rate 59. CT head and cervical spine showed there is no acute fracture or dislocation evident in the cervical spine. Severe multilevel degenerative disc disease and patient's arthropathy with multilevel foraminal protrusion and canal stenosis. There is a grade 1 anterior listhesis of C4 and C5 which appears degenerative. Recommend follow-up MRI. No acute intracranial hemorrhage. Mass effect or left shift noted. Chest x-ray showed no acute intrathoracic process. X-ray of the pelvis showed no acute fracture. Laboratory showed WBC 14.2 hemoglobin 12.3 and platelets 233 Blood pressure 132/52 on admission. Sodium 126 potassium 4.5 chloride 89 bicarb is 29 BUN 14 and creatinine 0.46 and calcium 8.1. Total bilirubin is 1.4 AST 61 ALT 13 alk phos 51. Troponin x1 negative. rotid duplex will be ordered. 2D echocardiogram in May 2022 showed normal EF. 2022 Patient is currently lying in the bed. Awake alert and oriented. Denies any complaints of dizziness or lightheadedness. Weakness did improve compared to yesterday. Otherwise patient had mild temp 100.0 yesterday afternoon. Urinalysis showed positive nitrate and cloudy and large leukocyte esterase elevated RBCs and WBCs. Patient was started on antibiotics ceftriaxone and follow-up urine culture report. Patient has been started on IV hydration with normal saline. No complaints of nausea or vomiting. Carotid duplex showed no evidence for hemodynamically significant stenosis. Discussed with family in detail. Apparently patient has been anxious and not eating well at home and also concern about her weight gain all the time.. Psychiatry was consulted for evaluation. Laboratory test showed WBC 5.6 hemoglobin 9.9 which is around her baseline. Platelets 179 Sodium 130 potassium 3.4 which is replaced chloride 94 bicarb is 27 BUN 9.2 and creatinine 0.5. Calcium 7.8. Current medications reviewed. Objective - Vital Signs Vital signs: Vital Signs Temp 99.9 F H 09/03/22 19:43 Pulse 65 09/03/22 19:43 Resp 18 09/03/22 20:00 BP 155/57 09/03/22 19:43 Pulse Ox 94 L 09/03/22 19:43 FiO2 21 09/03/22 07:46 Intake & Output 09/03/22 09/03/22 09/04/22 06:59 18:59 06:59 Intake Total 500 Output Total 800 Balance -300 Weight 53.07 kg Intake: Oral 500 Output: Urine 800 Other: Voiding Method Toilet Toilet Toilet # Voids 1 4 1 # Bowel Movements 1 - Exam PHYSICAL EXAMINATION: Patient is lying in the bed comfortably, no acute distress, awake alert and oriented.. HEENT: Normocephalic. Neck is supple. Pupils reactive. Nostrils clear. Oral cavity is moist. Neck reveals no JVD, carotid bruits, or thyromegaly. CHEST EXAMINATION: Trachea is central. Symmetrical expansion. Lung miles clear to auscultation and percussion. CARDIAC: Normal S1, S2 with no gallops. No murmurs ABDOMEN: Soft. Bowel sounds present. Nontender. No organomegaly. No abdominal bruits. Extremities: reveal no edema. No clubbing or cyanosis Neurologically awake, alert, oriented x3 with well-coordinated movements. No focal deficits noted Skin: No rash or skin lesions. Psychiatric: Coperative. Nonsuicidal, anxious and depressed Musculoskeletal: No joint swelling or deformity. Normal range of motion. - Labs CBC & Chem 7: 09/03/22 12:57 09/03/22 05:48 Labs: Abnormal Lab Results - Last 24 Hours (Table) 09/03/22 09/03/22 09/03/22 Range/Units 05:48 05:48 12:57 RBC 3.18 L 3.19 L (4.10-5.20) X 10*6/uL Hgb 9.9 L 9.8 L D (12.0-15.0) d/dL Hct 29.8 L 30.2 L (37.2-46.3) % MPV 9.3 L (9.5-12.2) FL Sodium 130 L (135-145) mmol/L Potassium 3.4 L (3.5-5.5) mmol/L Chloride 94 L (96-109) mmol/L Creatinine 0.5 L (0.6-1.5) mg/dL Calcium 7.8 L (8.7-10.3) mg/dL Urine Appearance (Clear) Urine Nitrite (Negative) Ur Leukocyte Esterase (Negative) Urine RBC (0-5) /hpf Urine WBC (0-5) /hpf Urine Bacteria (None) /hpf Urine Mucus (None) /hpf 09/03/22 Range/Units 16:10 RBC (4.10-5.20) X 10*6/uL Hgb (12.0-15.0) d/dL Hct (37.2-46.3) % MPV (9.5-12.2) FL Sodium (135-145) mmol/L Potassium (3.5-5.5) mmol/L Chloride (96-109) mmol/L Creatinine (0.6-1.5) mg/dL Calcium (8.7-10.3) mg/dL Urine Appearance Cloudy H (Clear) Urine Nitrite Positive H (Negative) Ur Leukocyte Esterase Large H (Negative) Urine RBC 8 H (0-5) /hpf Urine WBC 44 H (0-5) /hpf Urine Bacteria Occasional H (None) /hpf Urine Mucus Rare H (None) /hpf Assessment and Plan Assessment: Acute syncopal episode. Possible orthostatic hypotension. no arrhythmia noted. EKG showed sinus bradycardia with heart rate in 60s. Hypovolemic hyponatremia Dehydration volume depletion Acute urinary tract infection. Leukocytosis with WBC 14.2. Chest x-ray negative. Follow-up UA. Recent history of pleuritic chest pain and shortness of breath thought to be due to acute viral infection. CTA was negative for PE. Mild to moderate MR and TR as per echocardiogram May 2022. Hypertension Hyperlipidemia Osteoarthritis History of bowel resection Depression Mild to moderate MR and TR History of vitamin D deficiency and B12 deficiency DVT prophylaxis with heparin subcu Plan: Patient will be continued on IV hydration. Orthostatic vitals was ordered. Antibiotics ceftriaxone for urinary tract infection. Follow-up urine culture report. Blood pressure medications hydralazine and Lasix on hold. Psychiatry was consulted for evaluation of depression and anxiety. Discussed with family in detail. Anticipate discharge with final urine culture report and psychiatry final recommendations. Time with Patient: Greater than 30
[2022-09-04] MEDS: CHOLECALCIFEROL 25 MCG (1000 IU) TABLET PO SCH (09:01)
[2022-09-04] MEDS: CYANOCOBALAMIN 500 MCG TAB PO SCH (09:01)
[2022-09-04] MEDS: HEPARIN SODIUM,PORCINE/PF 5,000 UNIT/0.5 ML SYRINGE SQ SCH ×3 (09:01→23:28)
[2022-09-04] MEDS: SODIUM CHLORIDE 0.9% 1,000 ML IV SCH (09:01)
[2022-09-04] MEDS: FAMOTIDINE 20 MG/2 ML VIAL IV SCH ×2 (09:01→21:16)
[2022-09-04] MEDS: PRAVASTATIN SODIUM 20 MG TAB PO SCH (09:02)
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
--- NOTE | 2022-09-04 13:55 | P.PN ---
Subjective Patient is a 77-year-old female With a past medical history of hypertension, hyperlipidemia and osteoarthritis and history of bowel resection and depression presents to ER status post syncopal episode. Patient was recently discharged from the hospital on 08/25/2022 to rehab after acute viral infection. She was discharged from the rehab yesterday. She was at home this morning and woke up and went to the bathroom to urinate and walk to the kitchen. She was cutting the [employer] half and call her to get his part. Suddenly she fell on the ground and injured on the back of the head. Last concern about less than a minute. No bladder or bowel incontinence. Patient and was able to communicate after the fall. Denies any headache. Denies any dizziness or palpitations prior to the episode. Patient is currently walking with a wheeled walker. Patient had hip surgery in June 2022. Had a cardiac work-up including Lexiscan stress test and echocardiogram in May 2022. EKG showed sinus bradycardia. Heart rate 59. CT head and cervical spine showed there is no acute fracture or dislocation evident in the cervical spine. Severe multilevel degenerative disc disease and patient's arthropathy with multilevel foraminal protrusion and canal stenosis. There is a grade 1 anterior listhesis of C4 and C5 which appears degenerative. Recommend follow-up MRI. No acute intracranial hemorrhage. Mass effect or left shift noted. Chest x-ray showed no acute intrathoracic process. X-ray of the pelvis showed no acute fracture. Laboratory showed WBC 14.2 hemoglobin 12.3 and platelets 233 Blood pressure 132/52 on admission. Sodium 126 potassium 4.5 chloride 89 bicarb is 29 BUN 14 and creatinine 0.46 and calcium 8.1. Total bilirubin is 1.4 AST 61 ALT 13 alk phos 51. Troponin x1 negative. rotid duplex will be ordered. 2D echocardiogram in May 2022 showed normal EF. 2022 Patient is currently lying in the bed. Awake alert and oriented. Denies any complaints of dizziness or lightheadedness. Weakness did improve compared to y . Otherwise patient had mild temp 100.0 yesterday afternoon. Urinalysis showed positive nitrate and cloudy and large leukocyte esterase elevated RBCs and WBCs. Patient was started on antibiotics ceftriaxone and follow-up urine culture report. Patient has been started on IV hydration with normal saline. No complaints of nausea or vomiting. Carotid duplex showed no evidence for hemodynamically significant stenosis. Discussed with family in detail. Apparently patient has been anxious and not eating well at home and also concern about her weight gain all the time.. Psychiatry was consulted for evaluation. Laboratory test showed WBC 5.6 hemoglobin 9.9 which is around her baseline. Platelets 179 Sodium 130 potassium 3.4 which is replaced chloride 94 bicarb is 27 BUN 9.2 and creatinine 0.5. Calcium 7.8. 09/04/2022 Patient presents with syncope and back laceration with evidence of urinary tract infection Patient was started on ceftriaxone yesterday and urine culture is pending He remains on gentle hydration normal saline. She has evidence of hyponatremia which is improved. Hemoglobin close to baseline at 9.8 compared to baseline about 10.3 up to 11.5. Currently patient denies any symptoms of UTI currently, no more dizziness or syncope. Resume losartan today. Keep old and hydralazine and Objective - Vital Signs Vital signs: Vital Signs Temp 99.3 F 09/04/22 12:33 Pulse 56 L 09/04/22 12:33 Resp 18 09/04/22 12:33 BP 154/74 09/04/22 12:33 Pulse Ox 98 09/04/22 12:33 FiO2 21 09/03/22 07:46 Intake & Output 09/03/22 09/04/22 09/04/22 18:59 06:59 18:59 Intake Total 400 Balance 400 Weight 53.07 kg Intake: Oral 400 Other: Voiding Method Toilet Toilet Toilet # Voids 4 4 1 # Bowel Movements 1 1 - Exam GENERAL: The patient is alert and oriented x3, not in any acute distress. Well developed, well nourished. HEENT: Pupils are round and equally reacting to light. EOMI. No scleral icterus. No conjunctival pallor. Normocephalic, atraumatic. No pharyngeal erythema. No thyromegaly. CARDIOVASCULAR: S1 and S2 present. No murmurs, rubs, or gallops. PULMONARY: Chest is clear to auscultation, no wheezing , no crackles. ABDOMEN: Soft, nontender, nondistended, normoactive bowel sounds. No palpable organomegaly. MUSCULOSKELETAL: No joint swelling or deformity. EXTREMITIES: No cyanosis, clubbing, or pedal edema. NEUROLOGICAL: Gross neurological examination did not reveal any focal deficits. SKIN: No rashes. no petechiae. - Labs CBC & Chem 7: 09/03/22 12:57 09/03/22 05:48 Labs: Abnormal Lab Results - Last 24 Hours (Table) 09/03/22 09/03/22 09/03/22 Range/Units 05:48 12:57 16:10 RBC 3.19 L (3.80-5.40) m/uL Hgb 9.8 L D (11.4-16.0) gm/dL Hct 30.2 L (34.0-46.0) % Vitamin B12 1509.0 H (200.0-944.0) pg/mL Urine Appearance Cloudy H (Clear) Urine Nitrite Positive H (Negative) Ur Leukocyte Esterase Large H (Negative) Urine RBC 8 H (0-5) /hpf Urine WBC 44 H (0-5) /hpf Urine Bacteria Occasional H (None) /hpf Urine Mucus Rare H (None) /hpf Assessment and Plan Assessment: Acute urinary tract infection. Acute syncopal episode. Possible orthostatic hypotension. no arrhythmia noted. EKG showed sinus bradycardia with heart rate in 60s. Hypovolemic hyponatremia Dehydration volume depletion Anemia, chronic Recent history of pleuritic chest pain and shortness of breath thought to be due to acute viral infection. CTA was negative for PE. Mild to moderate MR and TR as per echocardiogram May 2022. Hypertension Hyperlipidemia Osteoarthritis History of bowel resection Depression Mild to moderate MR and TR History of vitamin D deficiency and B12 deficiency Plan: Continue with ceftriaxone Follow-up urine culture Continue with gentle hydration Resume losartan with close monitoring of blood pressure. Keep hold Lasix and hydralazine. Check orthostatic vitals Monitored sodium, creatinine in hemoglobin Labs and medication were reviewed.. Continue same treatment. Continue with symptomatic treatment. Resume home medication. Monitor labs and vitals. DVT and GI prophylaxis. Further recommendations as per clinical course of the patient DVT prophylaxis: Subcutaneous heparin GI Prophylaxis: Pepcid PT/OT: Pending Prognosis is guarded
[2022-09-04] MEDS: LOSARTAN 50 MG TAB PO SCH (15:09)
[2022-09-04] MEDS: ESCITALOPRAM 10 MG TAB PO SCH (21:16)
[2022-09-04] MEDS: ACETAMINOPHEN TAB 325 MG TAB PO PRN (21:29)
[2022-09-05] MEDS: LOSARTAN 50 MG TAB PO SCH (08:57)
[2022-09-05] MEDS: HEPARIN SODIUM,PORCINE/PF 5,000 UNIT/0.5 ML SYRINGE SQ SCH ×3 (08:57→23:46)
[2022-09-05] MEDS: FAMOTIDINE 20 MG/2 ML VIAL IV SCH ×2 (08:58→19:56)
[2022-09-05] MEDS: CYANOCOBALAMIN 500 MCG TAB PO SCH (08:58)
[2022-09-05] MEDS: CHOLECALCIFEROL 25 MCG (1000 IU) TABLET PO SCH (08:58)
[2022-09-05] MEDS: PRAVASTATIN SODIUM 20 MG TAB PO SCH (08:58)
[2022-09-05] MEDS: SODIUM CHLORIDE 0.9% 1,000 ML IV SCH ×2 (09:03→09:38)
[2022-09-05 09:21] LABS: Basophils # (A) 0.02 X 10*3/uL (0.00-0.10); Basophils % (A) 0.4 %; Eosinophils # (A) 0.29 X 10*3/uL (0.04-0.35); Eosinophils % (A) 5.4 %; HGB 10.3 d/dL (12.0-15.0); Lymphocytes % (A) 16.7 %; MCH 31.1 pg (27.0-32.0); MCHC 33.2 d/dL (32.0-37.0); MCV 93.7 FL (80.0-97.0); Mean Platelet Volume 9.8 FL (9.5-12.2); Monocytes # (A) 0.37 X 10*3/uL (0.20-1.00); Monocytes % (A) 6.9 %; NRBC Per 100 WBC 0 X 10*3/uL (0.00-0.01); Neutrophils # (A) 3.78 X 10*3/uL (1.80-7.70); Platelet Count 177 X 10*3/uL (140-440); RBC 3.31 X 10*6/uL (4.10-5.20); RDW 13.9 % (11.5-14.5); WBC 5.39 X 10*3/uL (4.50-10.00)
[2022-09-05 09:23] LABS: Blood Urea Nitrogen 7.5 mg/dL (9.0-27.0); Chloride 95 mmol/L (96-109); Glucose 80 mg/dL (70-110); Sodium 130 mmol/L (135-145)
[2022-09-05 09:24] LABS: Calcium 8.3 mg/dL (8.7-10.3); Carbon Dioxide 24.7 mmol/L (21.6-31.8)
--- NOTE | 2022-09-05 18:20 | P.PN ---
Subjective Patient is a 77-year-old female With a past medical history of hypertension, hyperlipidemia and osteoarthritis and history of bowel resection and depression presents to ER status post syncopal episode. Patient was recently discharged from the hospital on 08/25/2022 to rehab after acute viral infection. She was discharged from the rehab yesterday. She was at home this morning and woke up and went to the bathroom to urinate and walk to the kitchen. She was cutting the [employer] half and call her to get his part. Suddenly she fell on the ground and injured on the back of the head. Last concern about less than a minute. No bladder or bowel incontinence. Patient and was able to communicate after the fall. Denies any headache. Denies any dizziness or palpitations prior to the episode. Patient is currently walking with a wheeled walker. Patient had hip surgery in June 2022. Had a cardiac work-up including Lexiscan stress test and echocardiogram in May 2022. EKG showed sinus bradycardia. Heart rate 59. CT head and cervical spine showed there is no acute fracture or dislocation evident in the cervical spine. Severe multilevel degenerative disc disease and patient's arthropathy with multilevel foraminal protrusion and canal stenosis. There is a grade 1 anterior listhesis of C4 and C5 which appears degenerative. Recommend follow-up MRI. No acute intracranial hemorrhage. Mass effect or left shift noted. Chest x-ray showed no acute intrathoracic process. X-ray of the pelvis showed no acute fracture. Laboratory showed WBC 14.2 hemoglobin 12.3 and platelets 233 Blood pressure 132/52 on admission. Sodium 126 potassium 4.5 chloride 89 bicarb is 29 BUN 14 and creatinine 0.46 and calcium 8.1. Total bilirubin is 1.4 AST 61 ALT 13 alk phos 51. Troponin x1 negative. rotid duplex will be ordered. 2D echocardiogram in May 2022 showed normal EF. 2022 Patient is currently lying in the bed. Awake alert and oriented. Denies any complaints of dizziness or lightheadedness. Weakness did improve compared to y . Otherwise patient had mild temp 100.0 yesterday afternoon. Urinalysis showed positive nitrate and cloudy and large leukocyte esterase elevated RBCs and WBCs. Patient was started on antibiotics ceftriaxone and follow-up urine culture report. Patient has been started on IV hydration with normal saline. No complaints of nausea or vomiting. Carotid duplex showed no evidence for hemodynamically significant stenosis. Discussed with family in detail. Apparently patient has been anxious and not eating well at home and also concern about her weight gain all the time.. Psychiatry was consulted for evaluation. Laboratory test showed WBC 5.6 hemoglobin 9.9 which is around her baseline. Platelets 179 Sodium 130 potassium 3.4 which is replaced chloride 94 bicarb is 27 BUN 9.2 and creatinine 0.5. Calcium 7.8. 09/04/2022 Patient presents with syncope and back laceration with evidence of urinary tract infection Patient was started on ceftriaxone yesterday and urine culture is pending He remains on gentle hydration normal saline. She has evidence of hyponatremia which is improved. Hemoglobin close to baseline at 9.8 compared to baseline about 10.3 up to 11.5. Currently patient denies any symptoms of UTI currently, no more dizziness or syncope. Resume losartan today. Keep old and hydralazine and 09/05/2022 Patient improving slowly and gradually, no new complaints Good appetite. Urine culture is growing gram-negative bacilli and she remains on ceftriaxone She still blood pressure improved after adding losartan. Objective - Vital Signs Vital signs: Vital Signs Temp 98.7 F 09/05/22 12:10 Pulse 60 09/05/22 12:10 Resp 17 09/05/22 12:10 BP 144/65 09/05/22 12:10 Pulse Ox 97 09/05/22 12:10 FiO2 21 09/05/22 09:05 Intake & Output 09/04/22 09/05/22 09/05/22 18:59 06:59 18:59 Intake Total 222 Balance 222 Intake: Oral 222 Other: Voiding Method Toilet Toilet Toilet Bedside Commode # Voids 1 1 1 # Bowel Movements 1 1 1 - Exam GENERAL: The patient is alert and oriented x3, not in any acute distress. Well developed, well nourished. HEENT: Pupils are round and equally reacting to light. EOMI. No scleral icterus. No conjunctival pallor. Normocephalic, atraumatic. No pharyngeal erythema. No thyromegaly. CARDIOVASCULAR: S1 and S2 present. No murmurs, rubs, or gallops. PULMONARY: Chest is clear to auscultation, no wheezing , no crackles. ABDOMEN: Soft, nontender, nondistended, normoactive bowel sounds. No palpable organomegaly. MUSCULOSKELETAL: No joint swelling or deformity. EXTREMITIES: No cyanosis, clubbing, or pedal edema. NEUROLOGICAL: Gross neurological examination did not reveal any focal deficits. SKIN: No rashes. no petechiae. - Labs CBC & Chem 7: 09/05/22 06:12 09/05/22 06:12 Labs: Abnormal Lab Results - Last 24 Hours (Table) 09/05/22 09/05/22 Range/Units 06:12 06:12 RBC 3.31 L (4.10-5.20) X 10*6/uL Hgb 10.3 L (12.0-15.0) d/dL Hct 31.0 L (37.2-46.3) % Sodium 130 L (135-145) mmol/L Chloride 95 L (96-109) mmol/L BUN 7.5 L (9.0-27.0) mg/dL Creatinine 0.5 L (0.6-1.5) mg/dL Calcium 8.3 L (8.7-10.3) mg/dL Microbiology - Last 24 Hours (Table) 09/03/22 16:10 Urine Culture - Preliminary Urine,Voided Gram Neg Bacilli Assessment and Plan Assessment: Acute urinary tract infection. Acute syncopal episode. Possible orthostatic hypotension. no arrhythmia noted. EKG showed sinus bradycardia with heart rate in 60s. Hypovolemic hyponatremia Dehydration volume depletion Anemia, chronic Recent history of pleuritic chest pain and shortness of breath thought to be due to acute viral infection. CTA was negative for PE. Mild to moderate MR and TR as per echocardiogram May 2022. Hypertension Hyperlipidemia Osteoarthritis History of bowel resection Depression Mild to moderate MR and TR History of vitamin D deficiency and B12 deficiency Plan: Continue with ceftriaxone Follow-up urine culture Continue with gentle hydration Resume losartan with close monitoring of blood pressure. Keep hold Lasix and hydralazine. Check orthostatic vitals Monitored sodium, creatinine in hemoglobin Labs and medication were reviewed.. Continue same treatment. Continue with symptomatic treatment. Resume home medication. Monitor labs and vitals. DVT and GI prophylaxis. Further recommendations as per clinical course of the patient DVT prophylaxis: Subcutaneous heparin GI Prophylaxis: Pepcid PT/OT: Pending Prognosis is guarded
[2022-09-05] MEDS: hydrALAZINE HCL 50 MG TAB PO SCH (19:56)
[2022-09-05] MEDS: ESCITALOPRAM 10 MG TAB PO SCH (19:56)
[2022-09-05] MEDS: ACETAMINOPHEN TAB 325 MG TAB PO PRN (19:56)
[2022-09-06] MEDS: SODIUM CHLORIDE 0.9% 1,000 ML IV SCH (09:05)
[2022-09-06] MEDS: HEPARIN SODIUM,PORCINE/PF 5,000 UNIT/0.5 ML SYRINGE SQ SCH ×2 (09:05→17:17)
[2022-09-06] MEDS: FAMOTIDINE 20 MG/2 ML VIAL IV SCH ×2 (09:06→20:02)
[2022-09-06] MEDS: CYANOCOBALAMIN 500 MCG TAB PO SCH (09:06)
[2022-09-06] MEDS: CHOLECALCIFEROL 25 MCG (1000 IU) TABLET PO SCH (09:06)
[2022-09-06] MEDS: LOSARTAN 50 MG TAB PO SCH (09:06)
[2022-09-06] MEDS: hydrALAZINE HCL 50 MG TAB PO SCH ×2 (09:07→20:02)
[2022-09-06] MEDS: PRAVASTATIN SODIUM 20 MG TAB PO SCH (09:08)
[2022-09-06] MEDS: ESCITALOPRAM 10 MG TAB PO SCH (20:02)
[2022-09-06] MEDS: ACETAMINOPHEN TAB 325 MG TAB PO PRN (20:02)
--- NOTE | 2022-09-06 21:51 | P.PN ---
Subjective Patient is a 77-year-old female With a past medical history of hypertension, hyperlipidemia and osteoarthritis and history of bowel resection and depression presents to ER status post syncopal episode. Patient was recently discharged from the hospital on 08/25/2022 to rehab after acute viral infection. She was discharged from the rehab yesterday. She was at home this morning and woke up and went to the bathroom to urinate and walk to the kitchen. She was cutting the [employer] half and call her to get his part. Suddenly she fell on the ground and injured on the back of the head. Last concern about less than a minute. No bladder or bowel incontinence. Patient and was able to communicate after the fall. Denies any headache. Denies any dizziness or palpitations prior to the episode. Patient is currently walking with a wheeled walker. Patient had hip surgery in June 2022. Had a cardiac work-up including Lexiscan stress test and echocardiogram in May 2022. EKG showed sinus bradycardia. Heart rate 59. CT head and cervical spine showed there is no acute fracture or dislocation evident in the cervical spine. Severe multilevel degenerative disc disease and patient's arthropathy with multilevel foraminal protrusion and canal stenosis. There is a grade 1 anterior listhesis of C4 and C5 which appears degenerative. Recommend follow-up MRI. No acute intracranial hemorrhage. Mass effect or left shift noted. Chest x-ray showed no acute intrathoracic process. X-ray of the pelvis showed no acute fracture. Laboratory showed WBC 14.2 hemoglobin 12.3 and platelets 233 Blood pressure 132/52 on admission. Sodium 126 potassium 4.5 chloride 89 bicarb is 29 BUN 14 and creatinine 0.46 and calcium 8.1. Total bilirubin is 1.4 AST 61 ALT 13 alk phos 51. Troponin x1 negative. rotid duplex will be ordered. 2D echocardiogram in May 2022 showed normal EF. 2022 Patient is currently lying in the bed. Awake alert and oriented. Denies any complaints of dizziness or lightheadedness. Weakness did improve compared to y . Otherwise patient had mild temp 100.0 yesterday afternoon. Urinalysis showed positive nitrate and cloudy and large leukocyte esterase elevated RBCs and WBCs. Patient was started on antibiotics ceftriaxone and follow-up urine culture report. Patient has been started on IV hydration with normal saline. No complaints of nausea or vomiting. Carotid duplex showed no evidence for hemodynamically significant stenosis. Discussed with family in detail. Apparently patient has been anxious and not eating well at home and also concern about her weight gain all the time.. Psychiatry was consulted for evaluation. Laboratory test showed WBC 5.6 hemoglobin 9.9 which is around her baseline. Platelets 179 Sodium 130 potassium 3.4 which is replaced chloride 94 bicarb is 27 BUN 9.2 and creatinine 0.5. Calcium 7.8. 09/04/2022 Patient presents with syncope and back laceration with evidence of urinary tract infection Patient was started on ceftriaxone yesterday and urine culture is pending He remains on gentle hydration normal saline. She has evidence of hyponatremia which is improved. Hemoglobin close to baseline at 9.8 compared to baseline about 10.3 up to 11.5. Currently patient denies any symptoms of UTI currently, no more dizziness or syncope. Resume losartan today. Keep old and hydralazine and 09/05/2022 Patient improving slowly and gradually, no new complaints Good appetite. Urine culture is growing gram-negative bacilli and she remains on ceftriaxone She still blood pressure improved after adding losartan. 09/06/2022 although pt feels clincal improvmenet on treatmetn , she is on ceftriaxone for uti no urinary s/s today , goot appetitis , she feels improvment tsh, b12 and folate are check and they are ok orthostatic is negative bp improved after adding hydralzine Objective - Vital Signs Vital signs: Vital Signs Temp 100.0 F H 09/06/22 19:18 Pulse 66 09/06/22 19:18 Resp 18 09/06/22 19:18 BP 135/68 09/06/22 19:18 Pulse Ox 93 L 09/06/22 19:18 FiO2 21 09/06/22 09:08 Intake & Output 09/06/22 09/06/22 09/07/22 06:59 18:59 06:59 Intake Total 222 Output Total 1100 400 Balance -878 -400 Intake: Oral 222 Output: Urine 1100 400 Other: Voiding Method Toilet Toilet # Voids 2 1 # Bowel Movements 1 - Exam GENERAL: The patient is alert and oriented x3, not in any acute distress. Well developed, well nourished. HEENT: Pupils are round and equally reacting to light. EOMI. No scleral icterus. No conjunctival pallor. Normocephalic, atraumatic. No pharyngeal erythema. No thyromegaly. CARDIOVASCULAR: S1 and S2 present. No murmurs, rubs, or gallops. PULMONARY: Chest is clear to auscultation, no wheezing , no crackles. ABDOMEN: Soft, nontender, nondistended, normoactive bowel sounds. No palpable organomegaly. MUSCULOSKELETAL: No joint swelling or deformity. EXTREMITIES: No cyanosis, clubbing, or pedal edema. NEUROLOGICAL: Gross neurological examination did not reveal any focal deficits. SKIN: No rashes. no petechiae. - Labs CBC & Chem 7: 09/05/22 06:12 09/05/22 06:12 Labs: Microbiology - Last 24 Hours (Table) 09/03/22 16:10 Urine Culture - Final Urine,Voided Escherichia coli Assessment and Plan Assessment: Acute urinary tract infection. Acute syncopal episode. Possible orthostatic hypotension. no arrhythmia noted. EKG showed sinus bradycardia with heart rate in 60s. Hypovolemic hyponatremia Dehydration volume depletion Anemia, chronic Recent history of pleuritic chest pain and shortness of breath thought to be due to acute viral infection. CTA was negative for PE. Mild to moderate MR and TR as per echocardiogram May 2022. Hypertension Hyperlipidemia Osteoarthritis History of bowel resection Depression Mild to moderate MR and TR History of vitamin D deficiency and B12 deficiency Plan: Continue with ceftriaxone Follow-up renal us Continue with gentle hydration Resume losartan with close monitoring of blood pressure. c/w hydralazine.. Keep hold Lasix Monitored sodium, creatinine in hemoglobin Labs and medication were reviewed.. Continue same treatment. Continue with symptomatic treatment. Resume home medication. Monitor labs and vitals. DVT and GI prophylaxis. Further recommendations as per clinical course of the patient DVT prophylaxis: Subcutaneous heparin GI Prophylaxis: Pepcid PT/OT: Pending Prognosis is guarded
[2022-09-07] MEDS: HEPARIN SODIUM,PORCINE/PF 5,000 UNIT/0.5 ML SYRINGE SQ SCH ×3 (00:02→15:39)
--- NOTE | 2022-09-07 07:14 | US ---
EXAMINATION TYPE: US renals and bladder DATE OF EXAM: 09/06/2022 COMPARISON: CT 2021 CLINICAL INDICATION: Female, 77 years old with history of uti; UTI, hx of bladder suspension. EXAM MEASUREMENTS: Right Kidney: 11.2 x 4.9 x 4.5 cm Left Kidney: 11.1 x 4.9 x 5.1 cm Right Kidney: No hydronephrosis or masses seen, limited due to gas. Left Kidney: No hydronephrosis or masses seen, limited due to gas. Bladder: Appears wnl Bilateral Jets seen: Yes IMPRESSION: 1. No evidence of hydronephrosis. 2. No acute process.
[2022-09-07] MEDS: FAMOTIDINE 20 MG/2 ML VIAL IV SCH ×2 (09:16→21:49)
[2022-09-07] MEDS: hydrALAZINE HCL 50 MG TAB PO SCH ×2 (09:16→21:49)
[2022-09-07] MEDS: LOSARTAN 50 MG TAB PO SCH (09:16)
[2022-09-07] MEDS: CYANOCOBALAMIN 500 MCG TAB PO SCH (09:16)
[2022-09-07] MEDS: PRAVASTATIN SODIUM 20 MG TAB PO SCH (09:16)
[2022-09-07] MEDS: ACETAMINOPHEN TAB 325 MG TAB PO PRN ×2 (09:18→14:27)
[2022-09-07] MEDS: CHOLECALCIFEROL 25 MCG (1000 IU) TABLET PO SCH (09:19)
[2022-09-07] MEDS: SODIUM CHLORIDE 0.9% 1,000 ML IV SCH (12:25)
[2022-09-07] MEDS: ESCITALOPRAM 10 MG TAB PO SCH (21:49)
--- NOTE | 2022-09-07 22:02 | P.PN ---
Subjective Patient is a 77-year-old female With a past medical history of hypertension, hyperlipidemia and osteoarthritis and history of bowel resection and depression presents to ER status post syncopal episode. Patient was recently discharged from the hospital on 08/25/2022 to rehab after acute viral infection. She was discharged from the rehab yesterday. She was at home this morning and woke up and went to the bathroom to urinate and walk to the kitchen. She was cutting the [employer] half and call her to get his part. Suddenly she fell on the ground and injured on the back of the head. Last concern about less than a minute. No bladder or bowel incontinence. Patient and was able to communicate after the fall. Denies any headache. Denies any dizziness or palpitations prior to the episode. Patient is currently walking with a wheeled walker. Patient had hip surgery in June 2022. Had a cardiac work-up including Lexiscan stress test and echocardiogram in May 2022. EKG showed sinus bradycardia. Heart rate 59. CT head and cervical spine showed there is no acute fracture or dislocation evident in the cervical spine. Severe multilevel degenerative disc disease and patient's arthropathy with multilevel foraminal protrusion and canal stenosis. There is a grade 1 anterior listhesis of C4 and C5 which appears degenerative. Recommend follow-up MRI. No acute intracranial hemorrhage. Mass effect or left shift noted. Chest x-ray showed no acute intrathoracic process. X-ray of the pelvis showed no acute fracture. Laboratory showed WBC 14.2 hemoglobin 12.3 and platelets 233 Blood pressure 132/52 on admission. Sodium 126 potassium 4.5 chloride 89 bicarb is 29 BUN 14 and creatinine 0.46 and calcium 8.1. Total bilirubin is 1.4 AST 61 ALT 13 alk phos 51. Troponin x1 negative. rotid duplex will be ordered. 2D echocardiogram in May 2022 showed normal EF. 2022 Patient is currently lying in the bed. Awake alert and oriented. Denies any complaints of dizziness or lightheadedness. Weakness did improve compared to y . Otherwise patient had mild temp 100.0 yesterday afternoon. Urinalysis showed positive nitrate and cloudy and large leukocyte esterase elevated RBCs and WBCs. Patient was started on antibiotics ceftriaxone and follow-up urine culture report. Patient has been started on IV hydration with normal saline. No complaints of nausea or vomiting. Carotid duplex showed no evidence for hemodynamically significant stenosis. Discussed with family in detail. Apparently patient has been anxious and not eating well at home and also concern about her weight gain all the time.. Psychiatry was consulted for evaluation. Laboratory test showed WBC 5.6 hemoglobin 9.9 which is around her baseline. Platelets 179 Sodium 130 potassium 3.4 which is replaced chloride 94 bicarb is 27 BUN 9.2 and creatinine 0.5. Calcium 7.8. 09/04/2022 Patient presents with syncope and back laceration with evidence of urinary tract infection Patient was started on ceftriaxone yesterday and urine culture is pending He remains on gentle hydration normal saline. She has evidence of hyponatremia which is improved. Hemoglobin close to baseline at 9.8 compared to baseline about 10.3 up to 11.5. Currently patient denies any symptoms of UTI currently, no more dizziness or syncope. Resume losartan today. Keep old and hydralazine and 09/05/2022 Patient improving slowly and gradually, no new complaints Good appetite. Urine culture is growing gram-negative bacilli and she remains on ceftriaxone She still blood pressure improved after adding losartan. 09/06/2022 although pt feels clincal improvmenet on treatmetn , she is on ceftriaxone for uti no urinary s/s today , goot appetitis , she feels improvment tsh, b12 and folate are check and they are ok orthostatic is negative bp improved after adding hydralzine 09/07/2022 although pt is improving clincally but she has persistant low grade fever at 100 ', she had one episode of fever 100 degree last night as well she is on ceftriaxone for E.coli UTI , WHICH is sensitive to the same antibiotic we checked renal us is negative for a lesion to explain pt presentation ID consult is requested pt now on normal saline at 50 ml per hour Objective - Vital Signs Vital signs: Vital Signs Temp 98.6 F 09/07/22 11:59 Pulse 71 09/07/22 11:59 Resp 16 09/07/22 11:59 BP 116/51 09/07/22 11:59 Pulse Ox 93 L 09/07/22 11:59 FiO2 21 09/06/22 09:08 Intake & Output 09/06/22 09/07/22 09/07/22 18:59 06:59 18:59 Intake Total 400 Output Total 400 1700 Balance -400 -1300 Weight 53.07 kg Intake: Oral 400 Output: Urine 400 1700 Other: Voiding Method Toilet Toilet Toilet External Catheter External Catheter # Voids 1 3 # Bowel Movements 1 - Exam GENERAL: The patient is alert and oriented x3, not in any acute distress. Well developed, well nourished. HEENT: Pupils are round and equally reacting to light. EOMI. No scleral icterus. No conjunctival pallor. Normocephalic, atraumatic. No pharyngeal erythema. No thyromegaly. CARDIOVASCULAR: S1 and S2 present. No murmurs, rubs, or gallops. PULMONARY: Chest is clear to auscultation, no wheezing , no crackles. ABDOMEN: Soft, nontender, nondistended, normoactive bowel sounds. No palpable organomegaly. MUSCULOSKELETAL: No joint swelling or deformity. EXTREMITIES: No cyanosis, clubbing, or pedal edema. NEUROLOGICAL: Gross neurological examination did not reveal any focal deficits. SKIN: No rashes. no petechiae. - Labs CBC & Chem 7: 09/05/22 06:12 09/05/22 06:12 Assessment and Plan Assessment: Acute urinary tract infection. Acute syncopal episode. Possible orthostatic hypotension. no arrhythmia noted. EKG showed sinus bradycardia with heart rate in 60s. Hypovolemic hyponatremia Dehydration volume depletion Anemia, chronic Recent history of pleuritic chest pain and shortness of breath thought to be due to acute viral infection. CTA was negative for PE. Mild to moderate MR and TR as per echocardiogram May 2022. Hypertension Hyperlipidemia Osteoarthritis History of bowel resection Depression Mild to moderate MR and TR History of vitamin D deficiency and B12 deficiency Plan: Continue with ceftriaxone Follow-up renal us Continue with gentle hydration Resume losartan with close monitoring of blood pressure. c/w hydralazine.. Keep hold Lasix Monitored sodium, creatinine in hemoglobin Labs and medication were reviewed.. Continue same treatment. Continue with symptomatic treatment. Resume home medication. Monitor labs and vitals. DVT and GI prophylaxis. Further recommendations as per clinical course of the patient DVT prophylaxis: Subcutaneous heparin GI Prophylaxis: Pepcid PT/OT: Pending Prognosis is guarded
--- NOTE | 2022-09-07 22:16 | P.CONS ---
History of Present Illness - Reason for Consult Consult date: 09/07/22 - History of Present Illness Patient is a 77-year-old female with a past medical history treated for hypertension hyperlipidemia osteoarthritis presenting to the hospital about 5 days ago after the patient did have a syncopal episode patient mention she felt lightheaded and it fell down and did have a laceration to the scalp area patient apparently was cutting some food at the counter when she fell and landed onto her tailbone and then fell backwards striking her head patient did not have any significant warning symptoms and did not have any fever or any chills no URI symptoms no chest pain or shortness of breath she has been complaining of some lower rib cage pain and did have a cough which is mild in intensity but not bringing up any sputum, patient denies having any nausea vomiting no diarrhea no urinary symptoms patient has been running a low-grade fever 100 F on a daily basis over the last 4 days that has prompted this infectious disease consultation patient was not tachycardic or hypertensive mildly hypoxic but no need for supplemental oxygen patient did have a white count of 14.2 on admission that came down to normal however no CBC has been done over last 2 days kidney function has been normal patient did have a positive UA on 09/03/2022 culture subsequently grew E. coli that is a sensitive pathogen patient did have a chest x-ray no acute intrathoracic process ultrasound of the kidney did not show any hydronephrosis Past Medical History Past Medical History: Hyperlipidemia, Hypertension, Osteoarthritis (OA) Additional Past Medical History / Comment(s): VASCULAR HEADACHES , VARICOSE VEINS. History of Any Multi-Drug Resistant Organisms: None Reported Past Surgical History: Adenoidectomy, Bladder Surgery, Bowel Resection, Hysterectomy, Joint Replacement, Tonsillectomy, Tubal Ligation Additional Past Surgical History / Comment(s): BSO, [place] NEUROMA LEFT FOOT, CYSTOCELE AND RECTOCELE REPAIR, agnie hip Past Anesthesia/Blood Transfusion Reactions: No Reported Reaction Additional Past Anesthesia/Blood Transfusion Reaction / Comm: BLOOD TRANSFUSION WITH NO PROBLEM Past Psychological History: Depression Smoking Status: Never smoker Past Alcohol Use History: Rare Past Drug Use History: None Reported - Past Family History Mother Family Medical History: No Reported History Medications and Allergies Home Medications Medication Instructions Recorded Confirmed Type Escitalopram [Lexapro] 10 mg PO HS 03/14/21 09/02/22 History Pravastatin Sodium [Pravachol] 20 mg PO DAILY 03/14/21 09/02/22 History Biotin With Keratin 1 cap PO DAILY 06/11/22 09/02/22 History Cholecalciferol [Vitamin D3 (25 25 mcg PO DAILY 06/11/22 09/02/22 History Mcg = 1000 Iu)] Cyanocobalamin (Vitamin B-12) 1,000 mcg PO DAILY 06/11/22 09/02/22 History [Vitamin B-12] Vitamin B Complex 1 cap PO DAILY 06/11/22 09/02/22 History rOPINIRole HCL [Requip] 0.5 mg PO PC-SUPPER 06/11/22 09/02/22 History Ubidecarenone [Coenzyme Q10] 100 mg PO DAILY 08/20/22 09/02/22 History hydrALAZINE HCL [Apresoline] 50 mg PO TID 08/20/22 09/02/22 History Furosemide [Lasix] 20 mg PO DAILY #30 tab 08/25/22 09/02/22 Rx HYDROcodone/APAP 5-325MG [[place] 1 tab PO Q6HR PRN #12 tab 08/25/22 09/02/22 Rx 5-325] Losartan Potassium [Cozaar] 100 mg PO DAILY 09/02/22 09/02/22 History Allergies Allergy/AdvReac Type Severity Reaction Status Date / Time shellfish derived [Shrimp] Allergy Dyspnea Verified 09/02/22 16:15 Physical Exam Vitals: Vital Signs Temp Pulse Resp BP Pulse Ox 09/07/22 07:36 98.8 F 62 18 165/75 91 L 09/07/22 02:12 98.4 F 55 L 18 146/63 95 09/06/22 19:18 100.0 F H 66 18 135/68 93 L 09/06/22 12:07 99.5 F 67 18 119/63 95 Intake and Output 09/06/22 09/07/22 09/07/22 22:59 06:59 14:59 Intake Total 400 Output Total 1700 Balance -1300 Intake: Oral 400 Output: Urine 1700 Other: Voiding Method Toilet Toilet External Catheter External Catheter # Voids 3 Results CBC & Chem 7: 09/05/22 06:12 09/05/22 06:12 Assessment and Plan Plan: 1patient with a low-grade fever in this patient presented to hospital with near syncopal episode and did have a laceration to the scalp and injury to the lower back patient also complaining of bilateral lower rib cage pain and also have a mild dry cough question of possible aspiration pneumonitis, patient did have a positive UA and urine grew E. coli however should have been covered with Rocephin patient has been on ultrasound was negative for any hydronephrosis 2-we will repeat a chest x-ray PA and lateral check a CRP and a procalcitonin level 3-discontinue Rocephin 4-start the patient on Unasyn 3 g every 6 hours We will follow on clinical condition and cultures to further adjust medication if needed Thank you for this consultation we will follow the patient along with you Dictation was produced using [employer] dictation software. please excuse any g rammatical, word or spelling errors. Time with Patient: Greater than 30
[2022-09-08] MEDS: ACETAMINOPHEN TAB 325 MG TAB PO PRN ×2 (00:42→19:44)
[2022-09-08] MEDS: HEPARIN SODIUM,PORCINE/PF 5,000 UNIT/0.5 ML SYRINGE SQ SCH ×3 (00:42→15:40)
[2022-09-08] MEDS: AMPICILLIN-SULBACTAM 3 GM in SODIUM CHLORIDE 0.9% 100 ML IVPB SCH ×4 (00:42→17:48)
[2022-09-08] MEDS: PRAVASTATIN SODIUM 20 MG TAB PO SCH (08:41)
[2022-09-08] MEDS: LOSARTAN 50 MG TAB PO SCH (08:41)
[2022-09-08] MEDS: CYANOCOBALAMIN 500 MCG TAB PO SCH (08:41)
[2022-09-08] MEDS: hydrALAZINE HCL 50 MG TAB PO SCH ×2 (08:42→20:50)
[2022-09-08] MEDS: CHOLECALCIFEROL 25 MCG (1000 IU) TABLET PO SCH (08:42)
[2022-09-08] MEDS: FAMOTIDINE 20 MG/2 ML VIAL IV SCH ×2 (09:11→20:50)
[2022-09-08 11:09] LABS: HCT 31.8 % (37.2-46.3); HGB 10.6 d/dL (12.0-15.0); MCH 31.4 pg (27.0-32.0); MCHC 33.3 d/dL (32.0-37.0); MCV 94.1 FL (80.0-97.0); Mean Platelet Volume 9.2 FL (9.5-12.2); Platelet Count 241 X 10*3/uL (140-440); RBC 3.38 X 10*6/uL (4.10-5.20); RDW 14.3 % (11.5-14.5); WBC 3.94 X 10*3/uL (4.50-10.00)
[2022-09-08 11:10] LABS: Basophils # (A) 0.01 X 10*3/uL (0.00-0.10); Basophils % (A) 0.3 %; Eosinophils # (A) 0.14 X 10*3/uL (0.04-0.35); Eosinophils % (A) 3.6 %; Immature Grans, Automated 0 %; Lymphocytes % (A) 15.2 %; Monocytes # (A) 0.21 X 10*3/uL (0.20-1.00); Monocytes % (A) 5.3 %; NRBC Per 100 WBC 0 X 10*3/uL (0.00-0.01); Neutrophils # (A) 2.98 X 10*3/uL (1.80-7.70); Neutrophils % (A) 75.6 %
[2022-09-08] MEDS: SODIUM CHLORIDE 0.9% 1,000 ML IV SCH (11:14)
[2022-09-08 11:18] LABS: ALT 18 U/L (8-44); AST 26 U/L (13-35); Albumin 3.2 d/dL (3.8-4.9); Albumin/Globulin Ratio 1.14 Ratio (1.60-3.17); Alkaline Phosphatase 57 U/L (41-126); Blood Urea Nitrogen 5.5 mg/dL (9.0-27.0); Calcium 8.9 mg/dL (8.7-10.3); Chloride 97 mmol/L (96-109); Globulin 2.8 d/dL (1.6-3.3); Glucose 100 mg/dL (70-110); Potassium 4.2 mmol/L (3.5-5.5); Sodium 132 mmol/L (135-145); Total Bilirubin 0.4 mg/dL (0.3-1.2)
--- NOTE | 2022-09-08 12:30 | P.PN ---
Subjective Patient is a 77-year-old female With a past medical history of hypertension, hyperlipidemia and osteoarthritis and history of bowel resection and depression presents to ER status post syncopal episode. Patient was recently discharged from the hospital on 08/25/2022 to rehab after acute viral infection. She was discharged from the rehab yesterday. She was at home this morning and woke up and went to the bathroom to urinate and walk to the kitchen. She was cutting the [employer] half and call her to get his part. Suddenly she fell on the ground and injured on the back of the head. Last concern about less than a minute. No bladder or bowel incontinence. Patient and was able to communicate after the fall. Denies any headache. Denies any dizziness or palpitations prior to the episode. Patient is currently walking with a wheeled walker. Patient had hip surgery in June 2022. Had a cardiac work-up including Lexiscan stress test and echocardiogram in May 2022. EKG showed sinus bradycardia. Heart rate 59. CT head and cervical spine showed there is no acute fracture or dislocation evident in the cervical spine. Severe multilevel degenerative disc disease and patient's arthropathy with multilevel foraminal protrusion and canal stenosis. There is a grade 1 anterior listhesis of C4 and C5 which appears degenerative. Recommend follow-up MRI. No acute intracranial hemorrhage. Mass effect or left shift noted. Chest x-ray showed no acute intrathoracic process. X-ray of the pelvis showed no acute fracture. Laboratory showed WBC 14.2 hemoglobin 12.3 and platelets 233 Blood pressure 132/52 on admission. Sodium 126 potassium 4.5 chloride 89 bicarb is 29 BUN 14 and creatinine 0.46 and calcium 8.1. Total bilirubin is 1.4 AST 61 ALT 13 alk phos 51. Troponin x1 negative. rotid duplex will be ordered. 2D echocardiogram in May 2022 showed normal EF. 2022 Patient is currently lying in the bed. Awake alert and oriented. Denies any complaints of dizziness or lightheadedness. Weakness did improve compared to y . Otherwise patient had mild temp 100.0 yesterday afternoon. Urinalysis showed positive nitrate and cloudy and large leukocyte esterase elevated RBCs and WBCs. Patient was started on antibiotics ceftriaxone and follow-up urine culture report. Patient has been started on IV hydration with normal saline. No complaints of nausea or vomiting. Carotid duplex showed no evidence for hemodynamically significant stenosis. Discussed with family in detail. Apparently patient has been anxious and not eating well at home and also concern about her weight gain all the time.. Psychiatry was consulted for evaluation. Laboratory test showed WBC 5.6 hemoglobin 9.9 which is around her baseline. Platelets 179 Sodium 130 potassium 3.4 which is replaced chloride 94 bicarb is 27 BUN 9.2 and creatinine 0.5. Calcium 7.8. 09/04/2022 Patient presents with syncope and back laceration with evidence of urinary tract infection Patient was started on ceftriaxone yesterday and urine culture is pending He remains on gentle hydration normal saline. She has evidence of hyponatremia which is improved. Hemoglobin close to baseline at 9.8 compared to baseline about 10.3 up to 11.5. Currently patient denies any symptoms of UTI currently, no more dizziness or syncope. Resume losartan today. Keep old and hydralazine and 09/05/2022 Patient improving slowly and gradually, no new complaints Good appetite. Urine culture is growing gram-negative bacilli and she remains on ceftriaxone She still blood pressure improved after adding losartan. 09/06/2022 although pt feels clincal improvmenet on treatmetn , she is on ceftriaxone for uti no urinary s/s today , goot appetitis , she feels improvment tsh, b12 and folate are check and they are ok orthostatic is negative bp improved after adding hydralzine 09/07/2022 although pt is improving clincally but she has persistant low grade fever at 100 ', she had one episode of fever 100 degree last night as well she is on ceftriaxone for E.coli UTI , WHICH is sensitive to the same antibiotic we checked renal us is negative for a lesion to explain pt presentation ID consult is requested pt now on normal saline at 50 ml per hour 09/08/2022 patient clinically she is improving and doing well, she denies any specific symptoms for me today However as of yesterday patient was still feverish with low-grade fever, therefore antibiotic was switched urine is seen. No fever since then and keep monitoring. ID team on the case. Her E coli sensitive antibiotics However cannot exclude other sources for now. No rash, no significant respiratory symptoms. No diarrhea Possible discharge soon if while she keeps improving Objective - Vital Signs Vital signs: Vital Signs Temp 98.5 F 09/08/22 11:22 Pulse 80 09/08/22 11:22 Resp 16 09/08/22 11:22 BP 115/56 09/08/22 11:22 Pulse Ox 93 L 09/08/22 11:22 FiO2 21 09/06/22 09:08 Intake & Output 09/07/22 09/08/22 09/08/22 18:59 06:59 18:59 Intake Total 450 Output Total 900 1600 Balance -900 -1150 Weight 53.07 kg Intake: Oral 450 Output: Urine 900 1600 Other: Voiding Method Toilet Toilet Toilet External Catheter External Catheter # Voids 1 - Exam GENERAL: The patient is alert and oriented x3, not in any acute distress. Well developed, well nourished. HEENT: Pupils are round and equally reacting to light. EOMI. No scleral icterus. No conjunctival pallor. Normocephalic, atraumatic. No pharyngeal erythema. No thyromegaly. CARDIOVASCULAR: S1 and S2 present. No murmurs, rubs, or gallops. PULMONARY: Chest is clear to auscultation, no wheezing , no crackles. ABDOMEN: Soft, nontender, nondistended, normoactive bowel sounds. No palpable organomegaly. MUSCULOSKELETAL: No joint swelling or deformity. EXTREMITIES: No cyanosis, clubbing, or pedal edema. NEUROLOGICAL: Gross neurological examination did not reveal any focal deficits. SKIN: No rashes. no petechiae. - Labs CBC & Chem 7: 09/08/22 06:51 09/08/22 06:51 Labs: Abnormal Lab Results - Last 24 Hours (Table) 09/08/22 09/08/22 Range/Units 06:51 06:51 WBC 3.94 L (4.50-10.00) X 10*3/uL RBC 3.38 L (4.10-5.20) X 10*6/uL Hgb 10.6 L (12.0-15.0) d/dL Hct 31.8 L (37.2-46.3) % MPV 9.2 L (9.5-12.2) FL Lymphocytes # 0.60 L (0.90-5.00) X 10*3/uL Sodium 132 L (135-145) mmol/L BUN 5.5 L (9.0-27.0) mg/dL Creatinine 0.5 L (0.6-1.5) mg/dL BUN/Creatinine Ratio 11.00 L (12.00-20.00) Ratio C-Reactive Protein 6.50 H (0.00-0.80) mg/dL Total Protein 6.0 L (6.2-8.2) d/dL Albumin 3.2 L (3.8-4.9) d/dL Albumin/Globulin Ratio 1.14 L (1.60-3.17) Ratio Assessment and Plan Assessment: Acute urinary tract infection. Acute syncopal episode. Possible orthostatic hypotension. no arrhythmia noted. EKG showed sinus bradycardia with heart rate in 60s. Hypovolemic hyponatremia Dehydration volume depletion Anemia, chronic Recent history of pleuritic chest pain and shortness of breath thought to be due to acute viral infection. CTA was negative for PE. Mild to moderate MR and TR as per echocardiogram May 2022. Hypertension Hyperlipidemia Osteoarthritis History of bowel resection Depression Mild to moderate MR and TR History of vitamin D deficiency and B12 deficiency Plan: Continue with Unasyn instead of Rocephin Continue with gentle hydration Resume losartan with close monitoring of blood pressure. c/w hydralazine.. Keep hold Lasix Monitored sodium, creatinine in hemoglobin Labs and medication were reviewed.. Continue same treatment. Continue with symptomatic treatment. Resume home medication. Monitor labs and vitals. DVT and GI prophylaxis. Further recommendations as per clinical course of the patient DVT prophylaxis: Subcutaneous heparin GI Prophylaxis: Pepcid PT/OT: Pending Prognosis is guarded
--- NOTE | 2022-09-08 14:53 | P.PN ---
Subjective Progress Note Date: 09/08/22 Principal diagnosis: Fever Patient is a 77-year-old female with a past medical history treated for hypertension hyperlipidemia osteoarthritis presenting to the hospital after the patient did have a syncopal episode patient mention she felt lightheaded and it fell down and did have a laceration to the scalp , patient did have persistent low-grade fever prompting this infectious disease consultation On today's evaluation that is 09/08/2022, the patient is afebrile this morning, the patient is breathing comfortably and the lower rib cage pain has slightly decreased in intensity minimal cough no nausea no vomiting no abdominal pain no diarrhea Objective - Vital Signs Vital signs: Vital Signs Temp 98.5 F 09/08/22 11:22 Pulse 80 09/08/22 11:22 Resp 16 09/08/22 11:22 BP 115/56 09/08/22 11:22 Pulse Ox 93 L 09/08/22 11:22 FiO2 21 09/06/22 09:08 Intake & Output 09/07/22 09/08/22 09/08/22 18:59 06:59 18:59 Intake Total 450 Output Total 900 1600 Balance -900 -1150 Weight 53.07 kg Intake: Oral 450 Output: Urine 900 1600 Other: Voiding Method Toilet Toilet Toilet External Catheter External Catheter # Voids 1 - Exam GENERAL DESCRIPTION: An elderly female lying in bed in no distress RESPIRATORY SYSTEM: Unlabored breathing , decreased breath sounds at bases HEART: S1 S2 regular rate and rhythm , ABDOMEN: Soft , no tenderness EXTREMITIES: No edema feet - Labs CBC & Chem 7: 09/08/22 06:51 09/08/22 06:51 Labs: Abnormal Lab Results - Last 24 Hours (Table) 09/08/22 09/08/22 Range/Units 06:51 06:51 WBC 3.94 L (4.50-10.00) X 10*3/uL RBC 3.38 L (4.10-5.20) X 10*6/uL Hgb 10.6 L (12.0-15.0) d/dL Hct 31.8 L (37.2-46.3) % MPV 9.2 L (9.5-12.2) FL Lymphocytes # 0.60 L (0.90-5.00) X 10*3/uL Sodium 132 L (135-145) mmol/L BUN 5.5 L (9.0-27.0) mg/dL Creatinine 0.5 L (0.6-1.5) mg/dL BUN/Creatinine Ratio 11.00 L (12.00-20.00) Ratio C-Reactive Protein 6.50 H (0.00-0.80) mg/dL Total Protein 6.0 L (6.2-8.2) d/dL Albumin 3.2 L (3.8-4.9) d/dL Albumin/Globulin Ratio 1.14 L (1.60-3.17) Ratio Assessment and Plan (1) Fever Current Visit: Yes Status: Acute Code(s): R50.9 - FEVER, UNSPECIFIED SNOM ED Code(s): 950925328 (2) UTI (urinary tract infection) Current Visit: Yes Status: Acute Code(s): N39.0 - URINARY TRACT INFECTION, SITE NOT SPECIFIED SNOMED Code(s): 16425659 Plan: 1patient with a low-grade fever in this patient presented to hospital with near syncopal episode and did have a laceration to the scalp and injury to the lower back patient also complaining of bilateral lower rib cage pain and also have a mild dry cough question of possible aspiration pneumonitis, patient did have a positive UA and urine grew E. coli however should have been covered with Rocephin patient has been on ultrasound was negative for any hydronephrosis 2-we'll currently waiting for chest x-ray PA and lateral and CRP and a procalcitonin level 3Patient to continue Unasyn 3 g every 6 hours while waiting for the workup to be completed discussed with the admitting team Dictation was produced using [employer] dictation software. please excuse any grammatical, word or spelling errors. Time with Patient: Less than 30
[2022-09-08] MEDS: ESCITALOPRAM 10 MG TAB PO SCH (21:13)
[2022-09-09] MEDS: AMPICILLIN-SULBACTAM 3 GM in SODIUM CHLORIDE 0.9% 100 ML IVPB SCH ×5 (00:10→23:38)
[2022-09-09] MEDS: HEPARIN SODIUM,PORCINE/PF 5,000 UNIT/0.5 ML SYRINGE SQ SCH ×4 (00:10→23:37)
[2022-09-09] MEDS: SODIUM CHLORIDE 0.9% 1,000 ML IV SCH (00:16)
[2022-09-09] MEDS: CYANOCOBALAMIN 500 MCG TAB PO SCH (09:07)
[2022-09-09] MEDS: LOSARTAN 50 MG TAB PO SCH (09:07)
[2022-09-09] MEDS: PRAVASTATIN SODIUM 20 MG TAB PO SCH (09:08)
[2022-09-09] MEDS: FAMOTIDINE 20 MG/2 ML VIAL IV SCH ×2 (09:08→20:49)
[2022-09-09] MEDS: CHOLECALCIFEROL 25 MCG (1000 IU) TABLET PO SCH (09:08)
[2022-09-09] MEDS: hydrALAZINE HCL 50 MG TAB PO SCH ×2 (09:08→20:48)
--- NOTE | 2022-09-09 12:00 | P.PN ---
Subjective Patient is a 77-year-old female With a past medical history of hypertension, hyperlipidemia and osteoarthritis and history of bowel resection and depression presents to ER status post syncopal episode. Patient was recently discharged from the hospital on 08/25/2022 to rehab after acute viral infection. She was discharged from the rehab yesterday. She was at home this morning and woke up and went to the bathroom to urinate and walk to the kitchen. She was cutting the [employer] half and call her to get his part. Suddenly she fell on the ground and injured on the back of the head. Last concern about less than a minute. No bladder or bowel incontinence. Patient and was able to communicate after the fall. Denies any headache. Denies any dizziness or palpitations prior to the episode. Patient is currently walking with a wheeled walker. Patient had hip surgery in June 2022. Had a cardiac work-up including Lexiscan stress test and echocardiogram in May 2022. EKG showed sinus bradycardia. Heart rate 59. CT head and cervical spine showed there is no acute fracture or dislocation evident in the cervical spine. Severe multilevel degenerative disc disease and patient's arthropathy with multilevel foraminal protrusion and canal stenosis. There is a grade 1 anterior listhesis of C4 and C5 which appears degenerative. Recommend follow-up MRI. No acute intracranial hemorrhage. Mass effect or left shift noted. Chest x-ray showed no acute intrathoracic process. X-ray of the pelvis showed no acute fracture. Laboratory showed WBC 14.2 hemoglobin 12.3 and platelets 233 Blood pressure 132/52 on admission. Sodium 126 potassium 4.5 chloride 89 bicarb is 29 BUN 14 and creatinine 0.46 and calcium 8.1. Total bilirubin is 1.4 AST 61 ALT 13 alk phos 51. Troponin x1 negative. rotid duplex will be ordered. 2D echocardiogram in May 2022 showed normal EF. 2022 Patient is currently lying in the bed. Awake alert and oriented. Denies any complaints of dizziness or lightheadedness. Weakness did improve compared to y . Otherwise patient had mild temp 100.0 yesterday afternoon. Urinalysis showed positive nitrate and cloudy and large leukocyte esterase elevated RBCs and WBCs. Patient was started on antibiotics ceftriaxone and follow-up urine culture report. Patient has been started on IV hydration with normal saline. No complaints of nausea or vomiting. Carotid duplex showed no evidence for hemodynamically significant stenosis. Discussed with family in detail. Apparently patient has been anxious and not eating well at home and also concern about her weight gain all the time.. Psychiatry was consulted for evaluation. Laboratory test showed WBC 5.6 hemoglobin 9.9 which is around her baseline. Platelets 179 Sodium 130 potassium 3.4 which is replaced chloride 94 bicarb is 27 BUN 9.2 and creatinine 0.5. Calcium 7.8. 09/04/2022 Patient presents with syncope and back laceration with evidence of urinary tract infection Patient was started on ceftriaxone yesterday and urine culture is pending He remains on gentle hydration normal saline. She has evidence of hyponatremia which is improved. Hemoglobin close to baseline at 9.8 compared to baseline about 10.3 up to 11.5. Currently patient denies any symptoms of UTI currently, no more dizziness or syncope. Resume losartan today. Keep old and hydralazine and 09/05/2022 Patient improving slowly and gradually, no new complaints Good appetite. Urine culture is growing gram-negative bacilli and she remains on ceftriaxone She still blood pressure improved after adding losartan. 09/06/2022 although pt feels clincal improvmenet on treatmetn , she is on ceftriaxone for uti no urinary s/s today , goot appetitis , she feels improvment tsh, b12 and folate are check and they are ok orthostatic is negative bp improved after adding hydralzine 09/07/2022 although pt is improving clincally but she has persistant low grade fever at 100 ', she had one episode of fever 100 degree last night as well she is on ceftriaxone for E.coli UTI , WHICH is sensitive to the same antibiotic we checked renal us is negative for a lesion to explain pt presentation ID consult is requested pt now on normal saline at 50 ml per hour 09/08/2022 patient clinically she is improving and doing well, she denies any specific symptoms for me today However as of yesterday patient was still feverish with low-grade fever, therefore antibiotic was switched urine is seen. No fever since then and keep monitoring. ID team on the case. Her E coli sensitive antibiotics However cannot exclude other sources for now. No rash, no significant respiratory symptoms. No diarrhea Possible discharge soon if while she keeps improving 09/09/2022 Patient lying in chair most of the time , she sleeps a lot however she wakes up easily and has alert logic conversation. Patient denies any specific symptom However she still having fever yesterday evening was around 200 and this morning didn't it was about 99.9. She still on Unasyn 3 g every 6 hours without edema the case Objective - Vital Signs Vital signs: Vital Signs Temp 98.9 F 09/09/22 11:51 Pulse 81 09/09/22 11:51 Resp 18 09/09/22 11:51 BP 134/54 09/09/22 11:51 Pulse Ox 94 L 09/09/22 11:51 FiO2 21 09/06/22 09:08 Intake & Output 09/08/22 09/09/22 09/09/22 18:59 06:59 18:59 Intake Total 750 Output Total 1700 Balance 750 -1700 Intake: Intake, IV Titration 750 Amount Ampicillin-Sulbactam 3 gm 200 In Sodium Chloride 0.9% 100 ml @ 200 mls/hr IVPB Q6HR ANA Rx#:[id number] Sodium Chloride 0.9% 1, 550 000 ml @ 50 mls/hr IV . Q20H ANA Rx#:[id number] Output: Urine 1700 Other: Voiding Method Toilet Bedside Commode Bedside Commode External Catheter External Catheter # Voids 1 - Exam GENERAL: The patient is alert and oriented x3, not in any acute distress. Well developed, well nourished. HEENT: Pupils are round and equally reacting to light. EOMI. No scleral icterus. No conjunctival pallor. Normocephalic, atraumatic. No pharyngeal erythema. No thyromegaly. CARDIOVASCULAR: S1 and S2 present. No murmurs, rubs, or gallops. PULMONARY: Chest is clear to auscultation, no wheezing , no crackles. ABDOMEN: Soft, nontender, nondistended, normoactive bowel sounds. No palpable organomegaly. MUSCULOSKELETAL: No joint swelling or deformity. EXTREMITIES: No cyanosis, clubbing, or pedal edema. NEUROLOGICAL: Gross neurological examination did not reveal any focal deficits. SKIN: No rashes. no petechiae. - Labs CBC & Chem 7: 09/08/22 06:51 09/08/22 06:51 Assessment and Plan Assessment: Acute urinary tract infection. Acute syncopal episode. Possible orthostatic hypotension. no arrhythmia noted. EKG showed sinus bradycardia with heart rate in 60s. Hypovolemic hyponatremia Dehydration volume depletion Anemia, chronic Recent history of pleuritic chest pain and shortness of breath thought to be due to acute viral infection. CTA was negative for PE. Mild to moderate MR and TR as per echocardiogram May 2022. Hypertension Hyperlipidemia Osteoarthritis History of bowel resection Depression Mild to moderate MR and TR History of vitamin D deficiency and B12 deficiency Plan: Continue with Unasyn instead of Rocephin Continue with gentle hydration Resume losartan with close monitoring of blood pressure. c/w hydralazine.. Keep hold Lasix Monitored sodium, creatinine in hemoglobin Labs and medication were reviewed.. Continue same treatment. Continue with symptomatic treatment. Resume home medication. Monitor labs and vitals. DVT and GI prophylaxis. Further recommendations as per clinical course of the patient DVT prophylaxis: Subcutaneous heparin GI Prophylaxis: Pepcid PT/OT: Pending Prognosis is guarded
--- NOTE | 2022-09-09 12:23 | XR ---
EXAMINATION TYPE: XR chest 2V DATE OF EXAM: 09/09/2022 COMPARISON: 09/02/2022 HISTORY: 77-year-old female with pneumonia TECHNIQUE: Frontal and lateral views FINDINGS: Heart normal size. Upper and mid lungs are clear. There are small to moderate bilateral pleural effus ions with adjacent opacity. IMPRESSION: [id number] bilateral pleural effusions with adjacent atelectasis and/or consolidation.
[2022-09-09] MEDS: IOPAMIDOL CONTRAST (ORAL USE) VIAL PO PRN ×2 (15:09→16:00)
--- NOTE | 2022-09-09 17:47 | CT ---
EXAMINATION TYPE: CT abdomen pelvis w con DATE OF EXAM: 09/09/2022 COMPARISON: INDICATION: fever and abdominal pain. DLP: 720.70 mGycm, Automated exposure control for dose reduction was used. CONTRAST: 90 mL of Isovue 370. Study performed with Oral Contrast TECHNIQUE: Axial images were obtained from above the diaphragm to the pubic rami in the axial plane a t 5 mm thick sections. Reconstructed images are reviewed on the computer in the coronal plane. FINDINGS: Limited CT sections are obtained the lung bases. Small bilateral pleural effusions are present. Ther e is adjacent compressive atelectasis. No pericardial effusion is evident CT ABDOMEN: Liver: Normal Spleen: Normal Pancreas: Normal Adrenal glands: The adrenal glands are normal. Gallbladder: Normal Kidneys: No masses are evident. No hydronephrosis is present. No cysts are present. There may be a nonobstructing 0.3 cm mid right renal stone. Aorta: Vascular calcification is within the aorta. Inferior vena cava: Normal. CT PELVIS: There is some limitation in the lower pelvis due to beam hardening artifact from a right h ip prosthesis and left hip pain. Scattered diverticuli within the sigmoid colon. No adjacent inflammatory changes are identified. Flui d-filled ileum is present. Fecal debris is within the colon. There are some scattered diverticuli els ewhere within the colon. The study has some loops of bowel lacking oral contrast limiting their evalu ation. Appendix: Not visualized. No dilated tubular structure or inflammatory change is evident. Urinary bladder: Normal as visualized. Genitourinary structures: Uterus and ovaries are not identified. Osseous structures: No suspicious lytic or sclerotic lesions. IMPRESSIONS: 1. Small bilateral pleural effusions with adjacent compressive atelectasis. 2. Diverticulosis without acute diverticulitis. 3. Mild fluid-filled distal ileum and proximal colon. Consider ileus or gastroenteritis.
[2022-09-09] MEDS: ESCITALOPRAM 10 MG TAB PO SCH (20:48)
[2022-09-10] MEDS: SODIUM CHLORIDE 0.9% 1,000 ML IV SCH (02:54)
[2022-09-10 04:39] LABS: ALT 20 U/L (4-34); AST 29 U/L (14-36); African American GFR (CKD) >90 (>60 ml/min/1.73 sqM); Albumin 2.4 g/dL (3.5-5.0); Albumin/Globulin Ratio 0.8; Alkaline Phosphatase 57 U/L (38-126); Anion Gap 2 mmol/L; Blood Urea Nitrogen 5 mg/dL (7-17); C Reactive Protein 5.7 mg/dL (<1.0); Calcium 7.9 mg/dL (8.4-10.2); Carbon Dioxide 29 mmol/L (22-30); Chloride 97 mmol/L (98-107); Globulin 2.9 g/dL; Glucose 76 mg/dL (74-99); Non-African American GFR(CKD) >90 (>60 ml/min/1.73 sqM); Potassium 3.8 mmol/L (3.5-5.1); Sodium 128 mmol/L (137-145); Total Bilirubin 0.5 mg/dL (0.2-1.3); Total Protein 5.3 g/dL (6.3-8.2)
[2022-09-10 04:57] LABS: Basophils % (A) 0 %; Eosinophils # (A) 0.3 k/uL (0-0.7); Eosinophils % (A) 9 %; HCT 28.2 % (34.0-46.0); HGB 9.4 gm/dL (11.4-16.0); Lymphocytes # (A) 0.6 k/uL (1.0-4.8); Lymphocytes % (A) 22 %; MCH 31.4 pg (25.0-35.0); MCHC 33.3 g/dL (31.0-37.0); MCV 94.1 fL (80.0-100.0); Mean Platelet Volume 7.8; Monocytes # (A) 0.2 k/uL (0-1.0); Monocytes % (A) 6 %; Neutrophils # (A) 1.8 k/uL (1.3-7.7); Neutrophils % (A) 61 %; Platelet Count 255 k/uL (150-450); RDW 14.7 % (11.5-15.5); WBC 2.9 k/uL (3.8-10.6)
[2022-09-10] MEDS: AMPICILLIN-SULBACTAM 3 GM in SODIUM CHLORIDE 0.9% 100 ML IVPB SCH ×2 (05:07→13:15)
[2022-09-10] MEDS: FAMOTIDINE 20 MG/2 ML VIAL IV SCH (08:06)
[2022-09-10] MEDS: HEPARIN SODIUM,PORCINE/PF 5,000 UNIT/0.5 ML SYRINGE SQ SCH (10:40)
[2022-09-10] MEDS: CYANOCOBALAMIN 500 MCG TAB PO SCH (10:40)
[2022-09-10] MEDS: CHOLECALCIFEROL 25 MCG (1000 IU) TABLET PO SCH (10:40)
[2022-09-10] MEDS: LOSARTAN 50 MG TAB PO SCH (10:41)
[2022-09-10] MEDS ORDERED: FUROSEMIDE 20 MG TAB PO SCH (10:45)
[2022-09-10] MEDS: PRAVASTATIN SODIUM 20 MG TAB PO SCH (10:53)
[2022-09-10] MEDS: hydrALAZINE HCL 50 MG TAB PO SCH (10:58)
[2022-09-10 14:21] VITALS: BP 154/63; PULSE 74; RESP 18; TEMP 99.3
--- NOTE | 2022-09-10 14:28 | P.PN ---
Subjective Progress Note Date: 09/09/22 Principal diagnosis: Fever Patient is a 77-year-old female with a past medical history treated for hypertension hyperlipidemia osteoarthritis presenting to the hospital after the patient did have a syncopal episode patient mention she felt lightheaded and it fell down and did have a laceration to the scalp , patient did have persistent low-grade fever prompting this infectious disease consultation On today's evaluation that is 09/09/2022, the patient did have low-grade fever 100F last night and 99.9f this morning, the patient is breathing comfortably and the lower rib cage pain has slightly decreased in intensity minimal cough no nausea no vomiting no abdominal pain no diarrhea Objective - Vital Signs Vital signs: Vital Signs Temp 99.9 F H 09/09/22 07:30 Pulse 72 09/09/22 07:30 Resp 18 09/09/22 07:30 BP 166/70 09/09/22 07:30 Pulse Ox 91 L 09/09/22 07:30 FiO2 21 09/06/22 09:08 Intake & Output 09/08/22 09/09/22 09/09/22 18:59 06:59 18:59 Intake Total 750 Output Total 1700 Balance 750 -1700 Intake: Intake, IV Titration 750 Amount Ampicillin-Sulbactam 3 gm 200 In Sodium Chloride 0.9% 100 ml @ 200 mls/hr IVPB Q6HR ANA Rx#:[id number] Sodium Chloride 0.9% 1, 550 000 ml @ 50 mls/hr IV . Q20H ANA Rx#:[id number] Output: Urine 1700 Other: Voiding Method Toilet Bedside Commode Bedside Commode External Catheter External Catheter # Voids 1 - Exam GENERAL DESCRIPTION: An elderly female lying in bed in no distress RESPIRATORY SYSTEM: Unlabored breathing , decreased breath sounds at bases HEART: S1 S2 regular rate and rhythm , ABDOMEN: Soft , no tenderness EXTREMITIES: No edema feet - Labs CBC & Chem 7: 09/10/22 03:12 09/10/22 03:12 Assessment and Plan (1) Fever Current Visit: Yes Status: Acute Code(s): R50.9 - FEVER, UNSPECIFIED SNOMED Code(s): 792212234 (2) UTI (urinary tract infection) Current Visit: Yes Status: Acute Code(s): N39.0 - URINARY TRACT INFECTION, SITE NOT SPECIFIED SNOMED Code(s): 11638702 Plan: 1patient with a low-grade fever in this patient presented to hospital with near syncopal episode and did have a laceration to the scalp and injury to the lower back patient also complaining of bilateral lower rib cage pain and also have a mild dry cough question of possible aspiration pneumonitis, patient did have a positive UA and urine grew E. coli however should have been covered with Rocephin patient has been on ultrasound was negative for any hydronephrosis 2- chest x-ray PA and lateral today shows some basilar atelectasis and effusion and CRP is 6.50 and a procalcitonin level is normal at 0.05, keeping in mind persistent low-grade fever we will obtain a CT of abdominal pelvis to rule out intra-abdominal pathology 3Patient to continue Unasyn 3 g every 6 hours while waiting for the workup to be completed discussed with the admitting team Dictation was produced using [employer] dictation software. please excuse any grammatical, word or spelling errors. Time with Patient: Less than 30
--- NOTE | 2022-09-10 14:29 | P.PN ---
Subjective Progress Note Date: 09/10/22 Principal diagnosis: Fever Patient is a 77-year-old female with a past medical history treated for hypertension hyperlipidemia osteoarthritis presenting to the hospital after the patient did have a syncopal episode patient mention she felt lightheaded and it fell down and did have a laceration to the scalp , patient did have persistent low-grade fever prompting this infectious disease consultation On today's evaluation that is 09/10/2022, the patient is afebrile today, the patient is breathing comfortably on room air and the lower rib cage pain has slightly decreased in intensity, patient did have minimal dry cough no nausea no vomiting no abdominal pain no diarrhea Objective - Vital Signs Vital signs: Vital Signs Temp 98.7 F 09/10/22 08:02 Pulse 62 09/10/22 09:49 Resp 16 09/10/22 08:02 BP 151/69 09/10/22 09:49 Pulse Ox 93 L 09/10/22 08:02 FiO2 21 09/06/22 09:08 Intake & Output 09/09/22 09/10/22 09/10/22 18:59 06:59 18:59 Intake Total 1200 Output Total 1450 650 Balance -250 -650 Intake: Intake, IV Titration 800 Amount Ampicillin-Sulbactam 3 gm 200 In Sodium Chloride 0.9% 100 ml @ 200 mls/hr IVPB Q6HR ANA Rx#:[id number] Sodium Chloride 0.9% 1, 600 000 ml @ 50 mls/hr IV . Q20H ANA Rx#:[id number] Oral 400 Output: Urine 1450 650 Other: Voiding Method Bedside Commode Bedside Commode External Catheter External Catheter External Catheter # Voids 3 1 # Bowel Movements 1 - Exam GENERAL DESCRIPTION: An elderly female lying in bed in no distress RESPIRATORY SYSTEM: Unlabored breathing , decreased breath sounds at bases HEART: S1 S2 regular rate and rhythm , ABDOMEN: Soft , no tenderness, abdominal wall with no cellulitis induration or bruising EXTREMITIES: No edema feet - Labs CBC & Chem 7: 09/10/22 03:12 09/10/22 03:12 Labs: Abnormal Lab Results - Last 24 Hours (Table) 09/10/22 09/10/22 Range/Units 03:12 03:12 WBC 2.9 L (3.8-10.6) k/uL RBC 3.00 L (3.80-5.40) m/uL Hgb 9.4 L (11.4-16.0) gm/dL Hct 28.2 L (34.0-46.0) % Lymphocytes # 0.6 L (1.0-4.8) k/uL Sodium 128 L (137-145) mmol/L Chloride 97 L (98-107) mmol/L BUN 5 L (7-17) mg/dL Creatinine 0.42 L (0.52-1.04) mg/dL Calcium 7.9 L (8.4-10.2) mg/dL C-Reactive Protein 5.7 H (<1.0) mg/dL Total Protein 5.3 L (6.3-8.2) g/dL Albumin 2.4 L (3.5-5.0) g/dL Assessment and Plan (1) Fever Current Visit: Yes Status: Acute Code(s): R50.9 - FEVER, UNSPECIFIED SN OMED Code(s): 923401444 (2) UTI (urinary tract infection) Current Visit: Yes Status: Acute Code(s): N39.0 - URINARY TRACT INFECTION, SITE NOT SPECIFIED SNOMED Code(s): 84822178 Plan: 1patient with a low-grade fever in this patient presented to hospital with near syncopal episode and did have a laceration to the scalp and injury to the lower back patient also complaining of bilateral lower rib cage pain and also have a mild dry cough question of possible aspiration pneumonitis, patient did have a positive UA and urine grew E. coli however should have been covered with Rocephin patient has been on ultrasound was negative for any hydronephrosis 2- chest x-ray PA and lateral today shows some basilar atelectasis and effusion and CRP is 6.50 and a procalcitonin level is normal at 0.05, keeping in mind persistent low-grade fever we did obtain a CT of abdominal pelvis however did not show any acute intra-abdominal pathology 3Patient has shown overall improvement on Unasyn 3 g every 6 hours, will finish therapy with oral Augmentin 7 days Family the bedside and multiple questions concerned were answered Dictation was produced using [employer] dictation software. please excuse any grammatical, word or spelling errors. Time with Patient: Less than 30
[2022-09-10] MEDS ORDERED: hydrALAZINE HCL 50 MG TAB PO SCH (16:00)
--- NOTE | 2022-09-10 21:54 | DS ---
DISCHARGE SUMMARY FINAL DIAGNOSES: 1. Acute UTI, present on admission. 2. Syncopal episode, possibly secondary to orthostatic hypotension. 3. Hypovolemic hyponatremia. 4. Dehydration present on admission. 5. Hypertension. 6. Multiple medical issues. DISCHARGE DISPOSITION: The patient will be discharged in stable condition, guarded prognosis. HISTORY OF PRESENT ILLNESS: This is a 77-year-old woman with a past medical history of multiple medical problems, admitted with UTI and hypotension and has some syncope. The patient was monitored closely. The patient improved significantly. The culture showed E coli and the patient will be discharged home with the following medications, resume the home medications, antibiotics per ID. Abdomen, pelvis CAT scan was also done and follow up with ID and Primary in the outpatient setting. See discharge reconciliation for medications, discharge medications follow up with Cardiology for further evaluation of syncope as an outpatient. MMODL / IJN: [id number] /
== END 2022-09-10 15:45 | disposition home health service (06) | DRG 690 ==
LOC: EC 11:48 → 5NMEDONC 15:15 → OBSVTOIN 09-05 17:38 → 5NMEDONC 09-08 20:55
PROVIDERS: ADMIT Hospitalist; ATTEND Hospitalist
DX: N39.0 Urinary tract infection, site not specified (principal); E87.1 Hypo-osmolality and hyponatremia; F33.1 Major depressive disorder, recurrent, moderate; S01.01XA Laceration without foreign body of scalp, initial encounter; B96.20 Unspecified Escherichia coli [E. coli] as the cause of diseases classified elsewhere; D64.9 Anemia, unspecified; I95.1 Orthostatic hypotension; E86.1 Hypovolemia; E55.9 Vitamin D deficiency, unspecified; R00.1 Bradycardia, unspecified; E86.9 Volume depletion, unspecified; B34.9 Viral infection, unspecified; I08.1 Rheumatic disorders of both mitral and tricuspid valves; E53.8 Deficiency of other specified B group vitamins; M50.321 Other cervical disc degeneration at C4-C5 level; M43.12 Spondylolisthesis, cervical region; M48.02 Spinal stenosis, cervical region; E86.0 Dehydration; I83.90 Asymptomatic varicose veins of unspecified lower extremity; E78.5 Hyperlipidemia, unspecified; M19.90 Unspecified osteoarthritis, unspecified site; I10 Essential (primary) hypertension; W19.XXXA Unspecified fall, initial encounter; F43.10 Post-traumatic stress disorder, unspecified; Z91.013 Allergy to seafood; Z90.49 Acquired absence of other specified parts of digestive tract; Z98.51 Tubal ligation status; Z87.19 Personal history of other diseases of the digestive system; Z90.710 Acquired absence of both cervix and uterus; Z79.899 Other long term (current) drug therapy
CPT/HCPCS: 12002; 36415; 70450; 71045; 71046; 72125; 72170; 74177; 76770; 80048; 80053; 81001; 82607; 82746; 83735; 84145; 84443; 84484; 85025; 85027; 85610; 85730; 86140; 87077; 87086; 87186; 93005; 93880; 94760; 96360; 96361; 99285

== ENCOUNTER → 2022-09-25 | Outpatient (CLI) | payer MEDICARE, MEDICAID ==
[2022-09-25 20:14] LABS: HCT 37.4 % (37.2-46.3); HGB 12.2 d/dL (12.0-15.0); MCH 30.8 pg (27.0-32.0); MCHC 32.6 d/dL (32.0-37.0); MCV 94.4 FL (80.0-97.0); Mean Platelet Volume 9.7 FL (9.5-12.2); NRBC Per 100 WBC 0 X 10*3/uL (0.00-0.01); Platelet Count 333 X 10*3/uL (140-440); RBC 3.96 X 10*6/uL (4.10-5.20); RDW 14.1 % (11.5-14.5); WBC 2.96 X 10*3/uL (4.50-10.00)
[2022-09-25 20:18] LABS: ALT 12 U/L (8-44); AST 26 U/L (13-35); Albumin/Globulin Ratio 1.18 Ratio (1.60-3.17); Alkaline Phosphatase 76 U/L (41-126); Blood Urea Nitrogen 12.9 mg/dL (9.0-27.0); Calcium 9.3 mg/dL (8.7-10.3); Carbon Dioxide 29.4 mmol/L (21.6-31.8); Chloride 94 mmol/L (96-109); Globulin 3.4 d/dL (1.6-3.3); Glucose 99 mg/dL (70-110); Potassium 4.2 mmol/L (3.5-5.5); Sodium 135 mmol/L (135-145); Total Bilirubin 0.4 mg/dL (0.3-1.2); Total Protein 7.4 d/dL (6.2-8.2)
== END | disposition home or self-care (01) ==
LOC: LABWHC1 14:30
PROVIDERS: ATTEND Hospitalist
DX: E87.1 Hypo-osmolality and hyponatremia (principal); D64.9 Anemia, unspecified
CPT/HCPCS: 36415; 80053; 85027

== ENCOUNTER → 2022-10-12 | Outpatient (CLI) | payer MEDICARE, MEDICAID ==
[2022-10-12 14:28] LABS: NT-Pro-B-Type Natriuretic Pept 1130 pg/mL
[2022-10-12 21:43] LABS: ALT 66 U/L (8-44); AST 109 U/L (13-35); VLDL Calculation 17.78 mg/dL (5.00-40.00)
[2022-10-12 21:53] LABS: Chol/HDL Ratio 4.32 Ratio; LDL Cholesterol,Calculated 68.3 mg/dL (0.0-131.0)
== END | disposition home or self-care (01) ==
LOC: LABWHC1 13:13
PROVIDERS: ATTEND Internal Medicine Interventional Cardiology
DX: E78.2 Mixed hyperlipidemia (principal); R06.02 Shortness of breath
CPT/HCPCS: 36415; 80061; 83880; 84450; 84460